=== PATIENT | female | born 1960 | race Caucasian/White ===

== ENCOUNTER 2020-04-20 09:08 | Outpatient (REF) | payer OTHER, SELFPAY ==
--- NOTE | ~2020-04-20 | MM_ITS ---
EXAMINATION: MM SCREENING DIGITAL BREAST TOMOSYNTHESIS, BILATERAL CLINICAL INFORMATION: Screening. Asymptomatic. The lifetime risk of breast cancer based on the Tyrer-Cuzick Model is 8%. COMPARISON: Mammography: 04/12/2019, 02/12/2018 TECHNIQUE: Digital breast tomosynthesis is performed in both the craniocaudal and mediolateral oblique views along with computer-aided detection (CAD). Synthesized 2D images are generated from the tomosynthesis. FINDINGS: There are scattered areas of fibroglandular density (ACR BI-RADS breast composition Category b). There are no significant masses, abnormal calcifications, or other abnormalities. There is a stable small nodule again seen posterior inferior medial left breast. The axilla and skin contours are unremarkable. No significant changes. MM/MM tomosynthesis screening BI IMPRESSION: No mammographic evidence of malignancy. ASSESSMENT: BI-RADS 2: Benign RECOMMENDATION: Routine annual mammography screening. This patient's information was entered into a reminder system with a target due date for their next mammogram.
== END 2020-04-20 09:09 | disposition home or self-care (01) ==
LOC: HO.MAMMO 09:08
PROVIDERS: PCP Internal Medicine; Visit Provider Internal Medicine
DX: Z12.31 Encounter for screening mammogram for malignant neoplasm of breast (principal)
CPT/HCPCS: 77063; 77067

== ENCOUNTER 2020-05-19 11:07 | Outpatient (REF) | payer OTHER, SELFPAY ==
[2020-05-19 13:49] LABS: MANUAL DIFF FLAG NO
[2020-05-19 13:55] LABS: Basophils Absolute Auto 0.1 X10*3/uL (0.0-0.2); Basophils Percent Auto 0.5 % (0-2); Eosinophils Absolute Auto 0.3 X10*3/uL (0.0-0.4); Eosinophils Percent Auto 2.7 % (0-4); Hematocrit 49.7 % (37-47); Hemoglobin 16.1 g/dl (12.0-16.0); Imm Gran Abs Auto 0.03 X10*3/uL (0.00-0.03); Imm Gran Pct Auto 0.3 % (0.0-0.4); Lymphocytes Percent Auto 32.9 % (20-40); Mean Corpuscular HGB Conc 32.4 g/dl (31.0-35.0); Mean Corpuscular Hemoglobin 31.5 pg (27.0-33.0); Mean Corpuscular Volume 97.3 fL (80-98); Mean Platelet Volume 10.4 fL (9.4-12.3); Monocytes Absolute Auto 0.7 X10*3/uL (0.1-1.2); Monocytes Percent Auto 7.5 % (2-11); Neutrophils Absolute Auto 5.1 X10*3/uL (2.0-8.3); Neutrophils Percent Auto 56.1 % (45-73); Platelet Count 383 X10*3/uL (160-400); Red Blood Count 5.11 X10*6/uL (4.20-5.50); White Blood Count 9.1 X10*3/uL (4.8-10.8)
[2020-05-19 14:36] LABS: Alanine Aminotransferase 39 U/L (0-31); Anion Gap 15 (12-20); Aspartate Amino Transferase 26 U/L (5-31); Blood Urea Nitrogen 14 mg/dL (9-16); Calcium 9.8 mg/dL (8.4-10.2); Carbon Dioxide 28 mmol/L (22-29); Chloride 100 mmol/L (96-108); Cholesterol 288 mg/dL; Estimated Glomerular Filt Rate > 60; Glucose Fasting 107 mg/dL (60-99); HDL Cholesterol 50 mg/dL; LDL Cholesterol Calculated 173 mg/dl; Potassium 5.1 mmol/L (3.3-5.1); Sodium 138 mmol/L (135-145); Triglycerides 327 mg/dL
[2020-05-19 14:58] LABS: Vitamin D 25-OH Total 35.3 ng/mL (>30)
[2020-05-24 02:31] LABS: HPV mRNA E6/E7 rflx Not Detected (Not Detected)
== END 2020-05-19 11:08 | disposition home or self-care (01) ==
LOC: HO.HMGCLDS 11:07
PROVIDERS: PCP Internal Medicine; Visit Provider Internal Medicine
DX: Z00.01 Encounter for general adult medical examination with abnormal findings (principal); I10 Essential (primary) hypertension; E78.5 Hyperlipidemia, unspecified; F41.1 Generalized anxiety disorder; Z78.0 Asymptomatic menopausal state
CPT/HCPCS: 36415; 80048; 80061; 82306; 84443; 84450; 84460; 85025; 87624; 88142

== ENCOUNTER 2021-05-01 10:02 | Outpatient (REF) | payer OTHER, SELFPAY ==
--- NOTE | ~2021-05-01 | MM_ITS ---
EXAMINATION: MM SCREENING DIGITAL BREAST TOMOSYNTHESIS, BILATERAL CLINICAL INFORMATION: Screening. Asymptomatic. History left ADH 2007. The lifetime risk of breast cancer based on the Tyrer-Cuzick Model is 29%. COMPARISON: Mammography: 04/20/2020, 04/12/2019, 02/12/2018, 11/01/2015 TECHNIQUE: Digital breast tomosynthesis is performed in both the craniocaudal and mediolateral oblique views along with computer-aided detection (CAD). Synthesized 2D images are generated from the tomosynthesis. FINDINGS: There are scattered areas of fibroglandular density (ACR BI-RADS breast composition Category b). The is scattered small benign nodularity. No architectural abnormality or abnormal calcifications. The axilla and skin contours are unremarkable. Tiny smooth nodule posteromedial left breast on CC view is decreased in size. Right breast has a smooth oval nodule mid 4:00 position 8 cm from nipple and measuring around 8 x 4 mm, increased in size from prior exams. Patient will be recalled for additional imaging to further characterize. MM/MM tomosynthesis screening BI IMPRESSION: 1. Right: Smooth oval nodule mid 4:00 position increased in size. 2. Left: No mammographic evidence of malignancy. ASSESSMENT: BI-RADS 0: Incomplete - Need Additional Imaging Evaluation RECOMMENDATION: 1. Targeted ultrasound right breast. 2. Radiology department staff will contact the patient for additional imaging. 3. The lifetime risk of breast cancer based on the Tyrer-Cuzick Model is 29%. Additional annual adjunct screening with breast MRI may be of benefit in women with a risk score of 20% or greater. This patient's information was entered into a reminder system with a target due date for their next mammogram.
== END 2021-05-01 10:03 | disposition home or self-care (01) ==
LOC: HO.MAMMO 10:02
PROVIDERS: PCP Internal Medicine; Visit Provider Internal Medicine
DX: Z12.31 Encounter for screening mammogram for malignant neoplasm of breast (principal)
CPT/HCPCS: 77063; 77067

== ENCOUNTER 2021-05-11 10:48 | Outpatient (REF) | payer OTHER, SELFPAY ==
--- NOTE | ~2021-05-11 | US_ITS ---
EXAMINATION: US DIAGNOSTIC BREAST, RIGHT CLINICAL INFORMATION: Right breast nodule. COMPARISON: Mammography of 05/01/2021 and studies dating back to 06/24/2011. TECHNIQUE: Ultrasound of the breast is performed with real-time mahmood scale imaging and color Doppler. FINDINGS: At approximately the 4 o'clock position, 7 cm from the nipple, there is a hypoechoic 6 x 3 x 4 mm lesion which is taller than wide and with some irregular margins. This may represent 2 adjacent complex cysts. However, a solid mass is not excluded. No significant distal sound shadowing is seen and there appears to be some mild distal sound enhancement. Ultrasound-guided core biopsy is recommended. Breast center patient navigator called the above recommendation to referring provider's office. Results are discussed with the patient at time of visit. US/US breast RT limited IMPRESSION: Indeterminate right breast nodule 4 o'clock position, 7 cm from the nipple, for which ultrasound-guided core biopsy is recommended. ASSESSMENT: BI-RADS 4: Suspicious. RECOMMENDATION: Ultrasound-guided core biopsy.
== END 2021-05-11 10:49 | disposition home or self-care (01) ==
LOC: HO.MAMMO 10:48
PROVIDERS: PCP Internal Medicine; Visit Provider Internal Medicine
DX: N63.14 Unspecified lump in the right breast, lower inner quadrant (principal)
CPT/HCPCS: 76642

== ENCOUNTER 2021-05-22 11:07 | Outpatient (REF) | payer OTHER, SELFPAY ==
[2021-05-22 13:56] LABS: MANUAL DIFF FLAG NO
[2021-05-22 14:00] LABS: Basophils Absolute Auto 0.1 X10*3/uL (0.0-0.2); Basophils Percent Auto 0.9 % (0-2); Eosinophils Absolute Auto 0.3 X10*3/uL (0.0-0.4); Eosinophils Percent Auto 3.4 % (0-4); Hematocrit 44.8 % (37.0-47.0); Hemoglobin 14.8 g/dl (12.0-16.0); Imm Gran Abs Auto 0.04 X10*3/uL (0.00-0.03); Imm Gran Pct Auto 0.4 % (0.0-0.4); Lymphocytes Absolute Auto 3.5 X10*3/uL (1.2-4.9); Lymphocytes Percent Auto 39.1 % (20-40); Mean Corpuscular Hemoglobin 31.6 pg (27.0-33.0); Mean Corpuscular Volume 95.7 fL (80.0-98.0); Mean Platelet Volume 10.4 fL (9.4-12.3); Monocytes Absolute Auto 0.7 X10*3/uL (0.1-1.2); Monocytes Percent Auto 7.4 % (2-11); Neutrophils Absolute Auto 4.4 x10*3/uL (2.0-8.3); Neutrophils Percent Auto 48.8 % (45-73); Platelet Count 354 X10*3/uL (160-400); Red Blood Count 4.68 X10*6/uL (4.20-5.50); Red Cell Distribution Width 12.8 % (11.0-16.0); White Blood Count 8.9 X10*3/uL (4.8-10.8)
[2021-05-22 14:07] LABS: Estimated Average Glucose 108 mg/dL; Hemoglobin A1c % 5.4 %
[2021-05-22 14:13] LABS: Alanine Aminotransferase 40 U/L (0-31); Anion Gap 13 (12-20); Aspartate Amino Transferase 23 U/L (5-31); Blood Urea Nitrogen 16 mg/dL (9-16); Carbon Dioxide 26 mmol/L (22-29); Chloride 105 mmol/L (96-108); Cholesterol 325 mg/dL; Estimated Glomerular Filt Rate > 60; Glucose Fasting 96 mg/dL (60-99); HDL Cholesterol 53 mg/dL; LDL Cholesterol Calculated 221 mg/dl; Sodium 139 mmol/L (135-145); Triglycerides 259 mg/dL
[2021-05-22 14:28] LABS: Vitamin D 25-OH Total 33.9 ng/mL (>30)
[2021-05-24 14:02] LABS: TS Negative Control Passed; TS Panel A 0; TS Panel B 1; TS Positive Control Passed; TSpotTB Negative (Negative)
== END 2021-05-22 11:08 | disposition home or self-care (01) ==
LOC: HO.HMGCLDS 11:07
PROVIDERS: Visit Provider Internal Medicine
DX: Z11.1 Encounter for screening for respiratory tuberculosis (principal); I10 Essential (primary) hypertension; D12.6 Benign neoplasm of colon, unspecified; Z78.0 Asymptomatic menopausal state
CPT/HCPCS: 36415; 80048; 80061; 82306; 83036; 84450; 84460; 85025; 86481

== ENCOUNTER 2021-05-23 09:11 | Outpatient (REF) | payer OTHER, SELFPAY ==
--- NOTE | ~2021-05-23 | MM_ITS ---
EXAMINATION: ULTRASOUND GUIDED CORE BIOPSY BREAST, RIGHT POST PROCEDURE DIGITAL MAMMOGRAM, RIGHT CLINICAL INFORMATION: Nodule 4:00 right breast for tissue sampling. Prior history contralateral left ADH, 2007. COMPARISON: Mammography 05/01/2021, targeted right breast ultrasound 05/11/2021. FINDINGS: Proper informed consent is obtained from the patient after discussion of the procedure, potential risks and complications, and alternatives. Patient was given an opportunity for questions. The patient appeared to understand. The patient consented to the procedure and signed the consent form. GUIDANCE: Ultrasound-guided; aseptic technique. LESION: Anechoic nodule mid medial right breast, suspect cyst. APPROACH: Oblique caudal cranial. ANESTHESIA: 15 mL carbonated 1% lidocaine. DERMATOTOMY: Single skin batsheva dermatotomy performed. NEEDLE: 14-gauge Achieve core biopsy device with 13.5-gauge co-axial guide needle. CORES: 4. CLIP: HydroMARK; shape: butterfly. The lesion collapsed on initial core sampling. Clip placed in the vicinity of biopsy site. POST PROCEDURE UNILATERAL DIGITAL MAMMOGRAM: The post biopsy mammogram is performed in separate room using separate digital mammography equipment from the biopsy procedure. CC and ML x2 views are obtained. There are scattered areas of fibroglandular density (breast composition category: b). The clip marker is in position. No gross hematoma. The patient tolerated the procedure well. No immediate complications. Home instructions reviewed with the patient. Final pathology results are pending. MM/MM diagnostic mammo unilat RT IMPRESSION: 1. Status post ultrasound-guided core biopsy right breast. 2. Clip placed: HydroMARK; shape: butterfly. 3. Pathology pending. An addendum report will be issued.
[2021-05-23] MEDS: Sodium Bicarbonate 8.4% 50 MEQ/50 ML VIAL SUBCUT (11:14)
[2021-05-23] MEDS: Lidocaine HCl 1 % 20 ML VIAL 15 ML SUBCUT (11:16)
== END 2021-05-23 09:12 | disposition home or self-care (01) ==
LOC: HO.MAMMO 09:11
PROVIDERS: Visit Provider Surgery
DX: N63.14 Unspecified lump in the right breast, lower inner quadrant (principal)
CPT/HCPCS: 19083; 77062; 77065; 88305

== ENCOUNTER → 2021-05-28 09:57 | Outpatient (BNVA) | payer OTHER, SELFPAY | PROVIDERS: PCP Internal Medicine; Referring Provider Internal Medicine; Visit Provider Surgery | DX: N63.10 Unspecified lump in the right breast, unspecified quadrant (principal) ==

== ENCOUNTER 2021-10-24 08:07 | Outpatient (REF) | payer OTHER, SELFPAY ==
[2021-10-24 12:03] LABS: Cholesterol 275 mg/dL; HDL Cholesterol 42 mg/dL; LDL Cholesterol Calculated 170 mg/dl; Triglycerides 317 mg/dL
== END 2021-10-24 08:08 | disposition home or self-care (01) ==
LOC: HO.HMGCLDS 08:07
PROVIDERS: PCP Internal Medicine; Visit Provider Internal Medicine
DX: E78.5 Hyperlipidemia, unspecified (principal)
CPT/HCPCS: 36415; 80061

== ENCOUNTER 2022-04-29 09:29 | Day surgery (SDC) | payer OTHER, SELFPAY ==
[2022-04-23 19:38] VITALS: BMI 33.6
--- NOTE | 2022-04-26 12:22 | HO.ANESPROP2 ---
Documented by User: Charline Gómez NP 04/26/22 12:23 HPI - Anesthesia Eval Consult details Narrative: 61yo F for Colonoscopy PMFSH Active Problems Active Problems: All Active Problems (Updated 11/03/21 @ 03:06 by Adrianne Fletcher MD) Cigarette smoker motivated to quit (Acute) Mixed dyslipidemia (Acute) Acute conjunctivitis (Acute) Acute bronchitis (Acute) Breast mass, right (Acute) Tubular adenoma of colon (Acute) Essential hypertension (Acute) Generalized anxiety disorder (Acute) Past Medical History Medical History (Updated 04/12/22 @ 16:49 by Adrianne Fletcher MD) Breast mass, right Cigarette smoker motivated to quit Essential hypertension Generalized anxiety disorder History of lipoma Mixed dyslipidemia Tubular adenoma of colon Family History Family History Father History of hypertension Hx of hyperlipidemia History of cardiac arrhythmia Alzheimer disease Mother Diabetes Surgical History Surgical History History of colonoscopy with polypectomy Hx laparoscopic cholecystectomy Hx of breast biopsy Hx of dilation and curettage Social History Social History Housing: House Are you a primary progressive care manager to a significant other at home: No Do you presently have visiting nurse or other home services: No Alcohol intake: current Alcohol intake frequency: holidays/special occasions only Patient Tobacco Use Status: Current everyday Tobacco user Tobacco use type: Cigarette Cigarettes Per Day: 10 Years Smoked: 20 Smoked in Last 30 Days: Yes e-Cigarette/Vaping Use: Never Used Patient Interested in Nicotine Replacement: No Patient Given Instructions on How to Stop Smoking: Yes Date Education Initiated: 04/23/22 Use of substances other than those prescribed or required for medical reasons: No Have you been hit, kicked, punched, or otherwise hurt by someone within the past year? If so, by whom?: No Moravian Healthcare Practices: zoroastrian Are you DNR?: No Advance Directives: No Advance Directives Information Provided: Yes Recently lost weight without trying: No How much weight loss: Not applicable Eating poorly because of decreased appetite: No Nutrition screen score: 0 Nutrition Risks: No Nutritional Risk Patient : No : No Poor oral hygiene: No service: No Current occupational status: employed Cognitive needs: No Hearing needs: No Vision needs: Yes Meds Allergies Allergy/AdvReac Type Severity Reaction Status Date / Time No Known Allergies Allergy Verified 04/12/22 14:38 [No Known Allergies*] Exam Exam Date and Time: April 26, 2022 1222 Height,Weight and Vital Signs: Height 5 ft 3 in Weight 86.183 kg Assessment and Plan Assessment Anesthesia Assessment: Chart Reviewed Documented by User: Angélica Gutierrez MD 04/29/22 10:11 [facility] Past Medical History Medical History (Updated 04/12/22 @ 16:49 by Adrianne Fletcher MD) Breast mass, right Cigarette smoker motivated to quit Essential hypertension Generalized anxiety disorder History of lipoma Mixed dyslipidemia Tubular adenoma of colon Family History Family History Father History of hypertension Hx of hyperlipidemia History of cardiac arrhythmia Alzheimer disease Mother Diabetes Family history of problems with anesthesia: No Surgical History Surgical History History of colonoscopy with polypectomy Hx laparoscopic cholecystectomy Hx of breast biopsy Hx of dilation and curettage History of Problems with Anesthesia: No Social History Social History Housing: House Are you a primary progressive care manager to a significant other at home: No Do you presently have visiting nurse or other home services: No Alcohol intake: current Alcohol intake frequency: holidays/special occasions only Patient Tobacco Use Status: Current everyday Tobacco user Tobacco use type: Cigarette Cigarettes Per Day: 10 Years Smoked: 20 Smoked in Last 30 Days: Yes e-Cigarette/Vaping Use: Never Used Patient Interested in Nicotine Replacement: No Patient Given Instructions on How to Stop Smoking: Yes Date Education Initiated: 04/23/22 Use of substances other than those prescribed or required for medical reasons: No Have you been hit, kicked, punched, or otherwise hurt by someone within the past year? If so, by whom?: No Mor[employer] Healthcare Practices: zoroastrian Are you DNR?: No Advance Directives: No Advance Directives Information Provided: Yes Recently lost weight without trying: No How much weight loss: Not applicable Eating poorly because of decreased appetite: No Nutrition screen score: 0 Nutrition Risks: No Nutritional Risk Patient : No : No Poor oral hygiene: No service: No Current occupational status: employed Cognitive needs: No Hearing needs: No Vision needs: Yes Meds Allergies Allergy/AdvReac Type Severity Reaction Status Date / Time No Known Allergies Allergy Verified 04/12/22 14:38 [No Known Allergies*] Exam Airway Mallampati Class: II TM Dist: >3cm Neck ROM: Full Heart: rrr Lungs: cta Assessment and Plan Assessment Anesthesia Assessment: Anesthesia Plan Discussed Final Anesthetic Review Family History of Problems with Anesthesia: No History of Problems with Anesthesia: No NPO: Yes ASA Class: II Final Preanesthetic Review: No Changes in Pt Med Stat, Meds/Allgs Chart Reviewed and Consent Obtained/Reviewed Patient Risk: Intermediate Procedure Risk: Intermediate Anesthetic Plan Anesthetic Plan: MAC: Disposition: Standard PACU
[2022-04-29 10:03] VITALS: BP 151/93; PULSE 81; RESP 16; TEMP 36.9; O2SAT 98
--- NOTE | 2022-04-29 10:13 | MHC.SHP ---
Pre-Procedural Eval Section A Date of Service: 04/29/22 The patient is an INPATIENT: No The History & Physical has been completed within 30 days and I have reviewed it.: No Section B Chief Complaint: screening Details of Present Illness: Colon cancer screening Relevant Family History (Specify if Yes): No Relevant Social History: Tobacco Use Present Medications: see Short Stay Collaborative assessment Medical History: Significant History (Hypertension High cholesterol Anxiety Tubular adenoma Lipoma) History of Previous Operations: Relevant previous surgery/procedure and date(s) (History of colonoscopy with polypectomy Hx laparoscopic cholecystectomy Hx of breast biopsy Hx of dilation and curettage) Allergies: Allergies Allergy/AdvReac Type Severity Reaction Status Date / Time No Known Allergies Allergy Verified 04/12/22 14:38 [No Known Allergies*] Review of Systems Sugical H&P ROS: Negative: Constitution, Cardiovascular, Respiratory and Gastrointestinal Exam Surgical H&P Exam: Normal: Heart, Normal: Lungs, Normal: Extremities and Normal: Abdomen Plan Diagnosis/Plan: Unchanged I have reviewed the history and physical and performed a pertinent physical examination on my patient. No changes have occurred unless specified. Time Spent With Patient Time: Total time managing care of this patient today ____ minutes.
--- NOTE | 2022-04-29 10:19 | PM.OP ---
Brief Operative Note Date of Service: 04/29/22 Pre-op diagnosis: Colon cancer screening, history of colon polyps Post-op diagnosis: other (COLON POLYPS, DIVERTICULOSIS, MELANOSIS COLI, HEMORRHOIDS) Procedure: COLONOSCOPY TO CECUM WITH BIOPSIES AND SNARE POLYPECTOMY Surgeon: Carolann Calvo MD Anesthesia: MAC Was an Padded Box Sewer used for this Procedure?: Yes Padded Box Sewer: Vamshi Meeks Estimated blood loss (mL): 1 Pathology: other ( A) Polyps Cecum B) Polyp Ascending Colon C) Polyp Transverse Colon D) Polyp Rectum) Condition: stable Disposition: PACU
--- NOTE | 2022-04-29 10:20 | W.PM.OPN ---
Operative Note Operative Note Date of Service: 04/29/22 Narrative: COLONOSCOPY TILL CECUM WITH BIOPSIES AND SNARE POLYPECTOMY Indication:? Colon cancer screening, follow-up of colon polyps Endoscopist:? Carolann Calvo MD Anesthesia Provider:?Dr Mujica Anesthesia type:?MAC Consent: Indications for the procedure and potential complications of bleeding, perforation, reaction to medications and missed diagnosis were discussed with the patient and informed consent was obtained. Instrument: Olympus PCF H 190 L variable stiffness pediatric colonoscope Monitoring: Vital signs and clinical assessment, intermittent blood pressure monitoring, continuous EKG monitoring, Pulse oximetry and Carbon Dioxide monitoring were done throughout the procedure. Please see anesthesia flowsheet. Colon withdrawl time was 21 minutes. Procedure: The patient was placed in the left lateral decubitis position and pre-procedure medications were administered. After a digital rectal examination of the ano-rectum, the video colonoscope was inserted into the rectum and advanced through the colon to the cecum. The colonoscope was slowly withdrawn in a retrograde panoramic fashion and the colon mucosa was carefully examined including a retroflexed view of the rectum. Findings and interventions are described below. Procedure Difficulty: Colon was long and there was some loop formation. LLQ pressure was applied to intubate the cecum Findings: Terminal Ileum: Not evaluated Cecum: Two 5-8 mm sessile polyps - removed with a cold snare Ascending Colon: Mild Melanosis Coli throughout the colon. A 3-4 mm sessile polyp in the proximal AC - removed with a cold bx Transverse Colon: Mild Melanosis Coli throughout the colon. A 4-5 mm sessile polyp removed with a cold bx Descending Colon: Mild Melanosis Coli throughout the colon. Moderate diverticulosis. Sigmoid Colon: Mild Melanosis Coli throughout the colon. Moderate diverticulosis Rectum: A 7 -8 mm diminutive appearing polyp - removed with a cold biopsy. Ano-rectum: Moderate internal hemorrhoids and perianal skin tags Colon preparation: Good after some irrigation Impression and Post Procedure Diagnosis: Colonoscopy Findings: Five small polyps removed Mild Melanosis Coli throughout the colon. Moderate diverticulosis seen in the left colon Moderate hemorrhoids on retroflexed exam. Plan: Await pathology results Patient has an appointment on 05/07/22 in the [facility] with Katherine Devries NP. Repeat Colonoscopy interval based on path results - in 3-5 years if polyps are adenomatous and due to a hx of adenomatous colon polyps. (adult colonoscope for future colonoscopies) Above findings were reviewed with the patient and colon polyps and diverticulosis handouts were given in the discharge area
[2022-04-29 10:57] VITALS: BP 109/67; PULSE 79; RESP 16; TEMP 36.4; O2SAT 97
[2022-04-29 11:12] VITALS: BP 121/78; PULSE 71; RESP 16; O2SAT 99
[2022-04-29 11:25] VITALS: BP 131/77; PULSE 69; RESP 16; TEMP 36.3; O2SAT 99
== END 2022-04-29 12:08 | disposition home or self-care (01) ==
PROVIDERS: PCP Internal Medicine; Visit Provider Internal Medicine Gastroenterology
PROC: 0DJD8ZZ Inspection of Lower Intestinal Tract, Via Natural or Artificial Opening Endoscopic (ICD-10-PCS; CPT 45378; principal; 2022-04-29 11:20)
DX: Z12.11 Encounter for screening for malignant neoplasm of colon (principal); Z86.010 Personal history of colon polyps; D12.0 Benign neoplasm of cecum; D12.3 Benign neoplasm of transverse colon; K63.5 Polyp of colon; K62.1 Rectal polyp; K57.30 Diverticulosis of large intestine without perforation or abscess without bleeding; K63.89 Other specified diseases of intestine; K64.8 Other hemorrhoids; K64.4 Residual hemorrhoidal skin tags; I10 Essential (primary) hypertension; E78.00 Pure hypercholesterolemia, unspecified; F41.1 Generalized anxiety disorder; Z90.49 Acquired absence of other specified parts of digestive tract; F17.210 Nicotine dependence, cigarettes, uncomplicated
CPT/HCPCS: 45385; 45380; 88305

== ENCOUNTER 2022-07-25 09:16 | Outpatient (REF) | payer OTHER, SELFPAY ==
--- NOTE | ~2022-07-25 | MM_ITS ---
EXAMINATION: MM SCREENING DIGITAL BREAST TOMOSYNTHESIS, BILATERAL CLINICAL INFORMATION: Screening. Asymptomatic. History left ADH, 2007. Benign right ultrasound-guided core biopsy 05/23/2021 (small fragments of benign breast tissue with features of apocrine cyst. No atypia or malignancy). The lifetime risk of breast cancer based on the Tyrer-Cuzick Model is 28%. COMPARISON: Mammography: 05/23/2021, 05/01/2021, 04/20/2020, 04/12/2019 TECHNIQUE: Digital breast tomosynthesis is performed in both the craniocaudal and mediolateral oblique views along with computer-aided detection (CAD). Synthesized 2D images are generated from the tomosynthesis. FINDINGS: There are scattered areas of fibroglandular density (ACR BI-RADS breast composition Category b). There are no significant masses, abnormal calcifications, or other abnormalities. Parenchymal pattern is similar to prior studies. No architectural abnormality. There is a biopsy clip marker mid 3:30 right breast. No recurrent or developing density. The axilla and skin contours are unremarkable. No significant changes. MM/MM tomosynthesis screening BI IMPRESSION: No mammographic evidence of malignancy. ASSESSMENT: BI-RADS 2: Benign RECOMMENDATION: -Routine annual mammography screening. -The lifetime risk of breast cancer based on the Tyrer-Cuzick Model is 28%. Additional annual adjunct screening with breast MRI may be of benefit in women with a risk score of 20% or greater. This patient's information was entered into a reminder system with a target due date for their next mammogram.
== END 2022-07-25 09:17 | disposition home or self-care (01) ==
LOC: HO.MAMMO 09:16
PROVIDERS: PCP Internal Medicine; Visit Provider Internal Medicine
DX: Z12.31 Encounter for screening mammogram for malignant neoplasm of breast (principal)
CPT/HCPCS: 77063; 77067

== ENCOUNTER 2022-09-10 12:12 | Outpatient (AMB) | payer OTHER, SELFPAY ==
--- NOTE | 2022-09-10 13:30 | MHC.PC.OV ---
Vital Signs 09/10/22 13:31 Height 5 ft 3 in Weight 186 lb BMI 32.9 BP 128/94 H Blood Pressure Location Lt brachial Position Sitting Pulse 82 Pulse Source Pulse Oximeter Pulse Oximetry (%) 98 Oxygen Delivery Method Room Air Intake Visit Reasons: PE Intake Note: Pt is here today for her PE Allergies No Known Allergies [No Known Allergies*] Allergy (Verified 09/10/22 13:45) Medication List - Last Reconciled 09/10/22 by Adrianne Fletcher MD No Known Home Meds Tobacco use date assessed: 09/10/22 Dental Screening Dental Screen Date: 09/10/22 Did you have a dental visit in the last 12 months?: No Was dental information given to patient?: Patient has dentist HPI PE HPI Details 61-year-old lady here today for physical exam. She is up-to-date with her screening mammogram, had a cervical cancer screening done in 2020 with benign findings, and is up-to-date with her screening colonoscopy, which showed presence of 2 tubular adenomas and 1 hyperplastic polyp, due for repeat colonoscopy in [address] Calvo. She gets yearly flu vaccine up-to-date with her Tdap, and has had her COVID vaccine including booster. Has mixed dyslipidemia, currently controlled with diet. Continues to smoke cigarettes, not ready to quit at present time [facility] Medical History (Updated 09/10/22 @ 14:03 by Adrianne Fletcher MD) Breast mass, right Essential hypertension Generalized anxiety disorder History of lipoma Mixed dyslipidemia Not ready to quit smoking Obesity (BMI 30.0-34.9) Tubular adenoma of colon Surgical History History of colonoscopy with polypectomy Hx laparoscopic cholecystectomy Hx of breast biopsy Hx of dilation and curettage Family History Father History of hypertension Hx of hyperlipidemia History of cardiac arrhythmia Alzheimer disease Mother Diabetes Social History Housing: House Are you a primary manager of care to a significant other at home: No Do you presently have visiting nurse or other home services: No Alcohol intake: current Alcohol intake frequency: holidays/special occasions only Patient Tobacco Use Status: Current everyday Tobacco user Tobacco use type: Cigarette Cigarettes Per Day: 10 Years Smoked: 20 e-Cigarette/Vaping Use: Never Used service: No Current occupational status: employed Cognitive needs: No Hearing needs: No Vision needs: Yes Female Reproductive History Menstrual Age of Menarche: 89 Questionnaire PHQ-9 Over the last 2 weeks, how often have you been bothered by any of the following problems? 1. Little interest or pleasure in doing things: not at all 2. Feeling down, depressed, or hopeless: not at all 3. Trouble falling or staying asleep, or sleeping too much: not at all 4. Feeling tired or having little energy: more than half the days 5. Poor appetite or overeating: not at all 6. Feeling bad about yourself - or that you are a failure or have let yourself or your family down: not at all 7. Trouble concentrating on things, such as reading the newspaper or watching television: not at all 8. Moving or speaking so slowly that other people could have noticed. Or the opposite - being so fidgety or restless that you have been moving around a lot more than usual: not at all 9. Thoughts that you would be better off or of hurting yourself in some way: not at all Total score: 2 Depression Screening Interpretation: Negative 76408 - PHQ-9 Billing: Yes Source: Developed by Drs. Vamshi Lara, Anne Farrell, Javier Hamm and colleagues, with an educational clemente from [employer]. Thrive Questionnaire Date Thrive assessed: 09/10/22 I am a: Patient What is your living situation today?: I have a steady place to live Within the past 12 months, did the food you bought not last and you didn't have the money to get more?: Never true Within the past 12 months, did you worry whether your food would run out before you got money to buy more?: Never true Do you have trouble paying for medicines?: No Do you have trouble getting transportation to medical appointments?: No Do you have trouble paying your heating and electricity bill?: No Do you have trouble taking care of your child, family member or friend?: No Do you have trouble with day-to-day activities such as bathing, preparing meals, shopping, managing finances, etc.?: No Are you currently unemployed and looking for a job?: No Are you interested in more education?: No AUDIT C Alcohol Use Questionnaire (AUDIT-C) 1. How often do you have a drink containing alcohol?: 2-3 times a week 2. How many drinks containing alcohol do you have on a typical day when you are drinking?: 1 or 2 3. How often do you have six or more drinks on one occasion?: Never Total Score: 3 TRISHA-7 AMB Questionnaire TRISHA-7 Date TRISHA - 7 assessed: 09/10/22 Feeling nervous, anxious, or on edge: 2 = More than half the days Not being able to stop or control worryin = Several days Worrying too much about different things: 1 = Several days Trouble relaxin = Not at all Being so restless that it is hard to sit still: 0 = Not at all Becoming easily annoyed or irritable: 0 = Not at all Feeling afraid as if something awful might happen: 0 = Not at all Total TRISHA-7 score (0-4 normal; 5-9 mild; 10-14 moderate; 15-21 severe): 4 Source: Developed by Drs. Vasmhi Lara, Anne Farrell, Javier Hamm and colleagues, with an educational clemente from [employer]. TRISHA-7 Assessment Billing TRISHA-7 Assessment Tool: TRISHA-7 Assessment 25049 Review of Systems Const Denies body aches, Denies fatigue, Denies headache(s) and Denies weakness Eyes Details: Goes to [facility] Denies change in vision ENT Denies dizziness, Denies headache(s), Denies nasal congestion, Denies nasal discharge and Denies sore throat Card Denies chest pain, Denies lightheadedness, Denies palpitations and Denies dyspnea Resp Denies chest congestion, Denies cough, Denies dyspnea and Denies wheezing GI Denies abdominal pain, Denies change in bowel habits and Denies heartburn Reports no additional complaints Musc Reports no additional complaints Skin/Breast Denies lesions and Denies rash Neuro Denies dizziness, Denies headache(s) and Denies weakness Psych Reports no additional complaints Endo Denies fatigue, Denies polydipsia, Denies polyuria and Denies palpitations James/Lymph Reports no additional complaints Aller/Immun Denies seasonal rhinorrhea and Denies wheezing Physical exam (Primary Care) Vital Signs: Last Vital Signs Pulse 82 09/10/22 13:31 BP 128/94 H 09/10/22 13:31 Pulse Ox 98 09/10/22 13:31 Oxygen Delivery Method Room Air 09/10/22 13:31 BMI result Body Mass Index 32.9 BMI Assessment/Plan discussion: High BMI High, discussed plan: lifestyle, weight reduction, dietary and physical activity Tobacco/Smoking Status: Tobacco use Status Tobacco use date assessed 09/10/22 09/10/22 13:34 Patient Tobacco Use Status Current everyday Tobacco 09/10/22 13:34 Tobacco use type Cigarette 09/10/22 13:34 e-Cigarette/Vaping Use Never Used 09/10/22 13:34 Are you ready to quit: No PHQ-9: PHQ-9 Score PHQ-9: Total score 2 09/10/22 14:06 Depression Screening Interpretation: Negative Thrive Assessment: Date of Thrive Assessment Date Thrive assessed 09/10/22 09/10/22 14:06 Const General: comfortable and no acute distress Nutritional Appearance: obese Orientation/consciousness: patient oriented x3 HENMT Head: Yes normocephalic and Yes atraumatic Ears: TM's normal bilaterally and EAC's normal General nose exam: Normal external nose present and No nasal discharge present Face and sinus: Yes face symmetric Mouth: Normal oral and palatal mucosa present and oropharynx normal Eyes General: appearance normal, both eyes and all related structures Neck Neck: Yes full ROM, Yes no lymphadenopathy and Yes supple Thyroid: Thyroid normal Chest Breast/axilla palpation: normal palpation of the breasts Resp Auscultation: clear to auscultation bilaterally Cardio Rate: regular rate Rhythm: regular rhythm Heart sounds: S1 normal heart sound present and S2 normal heart sound present GI Palpation (GI): Soft to palpation, nontender, no guarding and no masses Auscultation: normal bowel sounds Back/Spine/Pelvis Back: No back tenderness Skin General skin exam: no rashes or lesions noted Neuro General: patient oriented x3, gait normal, tone normal, moves all extremities, no focal motor deficits and CN's II-XI intact bilaterally Extrem General: Yes full ROM, Yes no joint enlargement, Yes no pedal edema, Yes no calf tenderness and Yes normal gait Psych Appearance: grossly normal and well kempt Mental Status: mental status grossly normal Speech and movement: Normal speech and movement present Affect: normal affect Attitude: cooperative Assessment and Plan Assessment & Plan (1) Annual visit for general adult medical examination with abnormal findings: Code(s): Z00.01 - Encounter for general adult medical examination with abnormal findings Plan: Will check appropriate labs. Recommended dental visit every 6 months and regular eye exams, at least every 2 years. Take adequate calcium in diet and vitamin-D 3 at 2000 IU per cap once a day, in addition to weight-bearing exercises to help maintain good muscle tone and weight control. Instructed to do self-breast exam, up-to-date with her yearly mammogram, and cervical cancer screening.. Up-to-date with all her vaccinations but has not yet had her shingles vaccine. Up-to-date with screening colonoscopy (2) Mixed dyslipidemia: Code(s): E78.2 - Mixed hyperlipidemia Plan: Reviewed recent fasting lipid profile with patient with elevated triglycerides and LDL cholesterol. Repeat another fasting lipid panel. Encouraged to continue with a low-cholesterol diet , in addition to adherence to getting regular exercise, at least 30 minutes 3 to 4 times a week. Advised patient to make healthy food choices, eat more fruits, vegetables, whole grains, wild caught fish and low-fat dairy. Limit amount of meat and fried or fatty food products, as well as processed foods and fast foods. (3) Essential hypertension: Code(s): I10 - Essential (primary) hypertension Plan: Blood pressure at goal of less than 130/80. Continue with current medication. Reinforced importance of following a low sodium diet, getting regular exercise, and lowering stress levels. (4) Not ready to quit smoking: Code(s): Z72.0 - Tobacco use Plan: Patient strongly advised to stop smoking, as smoking damages blood vessels, degenerative of joints and spine, damage to lungs and heart., predisposes to developing certain cancers like lung, breast, bladder, colon. Recommended to try decreasing cigarette use by 1-2 cigarettes a day. Advised to monitor what triggers are for smoking so that this can be discussed on the next office visit. We can discuss different options to quit smoking when ready. (5) Obesity (BMI 30.0-34.9): Code(s): E66.9 - Obesity, unspecified Plan: Your BMI is above the ideal range. I deal BMI is between 18.5- 24. Recommended focusing on improving health instead of dieting. Mediterranean diet is a healthy diet that helps, limit food high in fat, sugar, and calories. Eat slowly, pay attention to portion sizes, plan your meals ahead of time, start regular physical activity, at least 150 minutes of moderate intensity exercise, or 90 minutes per week of vigorous exercise. Keeping a food diary, tracking what you eat and your physical activity can help assess what improvements you can make. Orders: Orders Alanine Aminotransferase 09/10/22 E78.2 - Mixed hyperlipidemia, I10 - Essential (primary) hypertension Aspartate Amino Transferase 09/10/22 E78.2 - Mixed hyperlipidemia, I10 - Essential (primary) hypertension Basic Metabolic Panel Fasting 09/10/22 E78.2 - Mixed hyperlipidemia, I10 - Essential (primary) hypertension Lipid Panel 09/10/22 E78.2 - Mixed hyperlipidemia, I10 - Essential (primary) hypertension Vitamin D 25-OH Total 09/10/22 E78.2 - Mixed hyperlipidemia, I10 - Essential (primary) hypertension Coding Level of Care Code Est Pt Prev Care 40-64y(23552) Diagnoses Annual visit for general adult medical examination with abnormal findings Z00.01 Mixed dyslipidemia E78.2 Essential hypertension I10 Not ready to quit smoking Z72.0 Obesity (BMI 30.0-34.9) E66.9 Additional Codes TRISHA-7 Assessment Billing - TRISHA-7 Assessment Tool: TRISHA-7 Assessment 46138 ([id number])
[2022-09-10 13:31] VITALS: BP 128/94; PULSE 82; O2SAT 98; BMI 32.9
== END 2022-09-10 15:12 | disposition home or self-care (01) ==
PROVIDERS: Visit Provider Internal Medicine
DX: Z00.01 Encounter for general adult medical examination with abnormal findings (principal); E66.9 Obesity, unspecified; Z68.32 Body mass index [BMI] 32.0-32.9, adult; I10 Essential (primary) hypertension; E78.2 Mixed hyperlipidemia; Z72.0 Tobacco use
CPT/HCPCS: 99396

== ENCOUNTER 2022-09-13 08:03 | Outpatient (REF) | payer OTHER, SELFPAY ==
[2022-09-13 12:06] LABS: Alanine Aminotransferase 35 U/L (0-31); Anion Gap 19 (12-20); Aspartate Amino Transferase 28 U/L (5-31); Blood Urea Nitrogen 15 mg/dL (9-16); Calcium 10.3 mg/dL (8.4-10.2); Carbon Dioxide 17 mmol/L (22-29); Chloride 106 mmol/L (96-108); Cholesterol 256 mg/dL; Estimated Glomerular Filt Rate > 60; Glucose Fasting 100 mg/dL (60-99); HDL Cholesterol 43 mg/dL; LDL Cholesterol Calculated 160 mg/dl; Potassium 4.2 mmol/L (3.3-5.1); Sodium 138 mmol/L (135-145); Triglycerides 268 mg/dL
[2022-09-13 12:25] LABS: Vitamin D 25-OH Total 93.9 ng/mL (>30)
== END 2022-09-13 08:04 | disposition home or self-care (01) ==
LOC: HO.HMGCLDS 08:03
PROVIDERS: PCP Internal Medicine; Visit Provider Internal Medicine
DX: I10 Essential (primary) hypertension (principal); E78.2 Mixed hyperlipidemia
CPT/HCPCS: 36415; 80048; 80061; 82306; 84450; 84460

== ENCOUNTER 2023-07-29 09:12 | Outpatient (REF) | payer OTHER, SELFPAY ==
--- NOTE | ~2023-07-29 | MM_ITS ---
EXAMINATION: MM SCREENING DIGITAL BREAST TOMOSYNTHESIS, BILATERAL CLINICAL INFORMATION: Screening. Asymptomatic. COMPARISON: Mammography: This study is compared with prior exams dating back to 2019. TECHNIQUE: Digital breast tomosynthesis is performed in both the craniocaudal and mediolateral oblique views along with computer-aided detection (CAD). Synthesized 2D images are generated from the tomosynthesis. FINDINGS: There are scattered areas of fibroglandular density (ACR BI-RADS breast composition Category b). There are no significant masses, abnormal calcifications, or other abnormalities. There are minor postsurgical changes in the upper outer quadrant of the left breast. MM/MM tomosynthesis screening BI IMPRESSION: No mammographic evidence of malignancy. ASSESSMENT: BI-RADS BI-RADS 2 - Benign Findings RECOMMENDATION: Routine annual mammography screening. 1 year F/U This examination should not preclude the clinical evaluation of a suspicious palpable abnormality. This patient's information was entered into a reminder system with a target due date for their next mammogram.
== END 2023-07-29 09:13 | disposition home or self-care (01) ==
LOC: HO.MAMMO 09:12
PROVIDERS: PCP Internal Medicine; Visit Provider Internal Medicine
DX: Z12.31 Encounter for screening mammogram for malignant neoplasm of breast (principal)
CPT/HCPCS: 77063; 77067

== ENCOUNTER → 2023-07-29 09:30 | Outpatient (BNV) | payer OTHER, SELFPAY | PROVIDERS: PCP Internal Medicine; Visit Provider Radiology Diagnostic Radiology | DX: Z12.31 Encounter for screening mammogram for malignant neoplasm of breast (principal) | CPT/HCPCS: 77063; 77067 ==

== ENCOUNTER 2023-09-18 11:16 | Outpatient (AMB) | payer BC, SELFPAY ==
--- NOTE | 2023-09-18 11:30 | A.OFFPC_ITS ---
Vital Signs 09/18/23 11:38 Height 5 ft 3 in Weight 178 lb BMI 31.5 BP 130/88 Blood Pressure Location Rt brachial Position Sitting Pulse 80 Pulse Source Pulse Oximeter Pulse Oximetry (%) 97 Oxygen Delivery Method Room Air Intake Visit Reasons: PE Intake Note: Pt is here today for her PE and Papsmear L Allergies No Known Allergies [No Known Allergies*] Allergy (Verified 09/18/23 11:52) Medication List - Last Reconciled 09/18/23 by Adrianne Fletcher MD No Known Home Meds Tobacco use date assessed: 09/18/23 Dental Screening Dental Screen Date: 09/18/23 Did you have a dental visit in the last 12 months?: No Did you have a dental problem in the last 6 months where you did not have access to dental care?: No Was dental information given to patient?: Patient has dentist HPI PE HPI Details 62-year-old lady here today for physical exam. She has mixed dyslipidemia, has been trying to follow a low-cholesterol diet and trying to exercise . She is up-to-date with her mammogram, last done 07/29/2023 with normal findings, last cervical cancer screening was done 05/22/2020 with negative findings, due for a Pap smear today. She had a screening colonoscopy done 04/29/2022 with removal of 4 polyps 2 of them were tubular adenoma, repeat colon again in 2025. Smokes cigarettes at least half a pack a day, no desire to quit at present time She has been feeling well, with no complaints at present time [facility] Medical History Generalized anxiety disorder History of adenomatous polyp of colon Obesity (BMI 30.0-34.9) Not ready to quit smoking Mixed dyslipidemia Essential hypertension History of lipoma Surgical History History of colonoscopy with polypectomy Hx of dilation and curettage Hx of breast biopsy Hx laparoscopic cholecystectomy Family History Father History of hypertension Hx of hyperlipidemia History of cardiac arrhythmia Alzheimer disease Mother Diabetes Social History Housing: House Are you a primary medicare insurance specialist to a significant other at home: No Do you presently have visiting nurse or other home services: No Alcohol intake: current Alcohol intake frequency: holidays/special occasions only Patient Tobacco Use Status: Current everyday Tobacco user Tobacco use type: Cigarette Cigarettes Per Day: 10 Years Smoked: 20 e-Cigarette/Vaping Use: Never Used service: No Current occupational status: employed Cognitive needs: No Hearing needs: No Vision needs: Yes Female Reproductive History Menstrual Age of Menarche: 13 Menopause type: natural Date of last pap smear: 05/22/20 Questionnaire PHQ-9 Over the last 2 weeks, how often have you been bothered by any of the following problems? 1. Little interest or pleasure in doing things: not at all 2. Feeling down, depressed, or hopeless: not at all 3. Trouble falling or staying asleep, or sleeping too much: not at all 4. Feeling tired or having little energy: not at all 5. Poor appetite or overeating: not at all 6. Feeling bad about yourself - or that you are a failure or have let yourself or your family down: not at all 7. Trouble concentrating on things, such as reading the newspaper or watching television: not at all 8. Moving or speaking so slowly that other people could have noticed. Or the opposite - being so fidgety or restless that you have been moving around a lot more than usual: not at all 9. Thoughts that you would be better off or of hurting yourself in some way: not at all Total score: 0 Depression Screening Interpretation: Negative Depression Screening Done: Yes 97215 - PHQ-9 Billing: Yes Source: Developed by Drs. Vamshi Lara, Anne Farrell, Javier Hamm and colleagues, with an educational clemente from [employer]. Thrive Questionnaire Date Thrive assessed: 09/18/23 I am a: Patient What is your living situation today?: I have a steady place to live Within the past 12 months, did the food you bought not last and you didn't have the money to get more?: Never true Within the past 12 months, did you worry whether your food would run out before you got money to buy more?: Never true Do you have trouble paying for medicines?: No Do you have trouble getting transportation to medical appointments?: No Do you have trouble paying your heating and electricity bill?: No Do you have trouble taking care of your child, family member or friend?: No Do you have trouble with day-to-day activities such as bathing, preparing meals, shopping, managing finances, etc.?: No Are you currently unemployed and looking for a job?: No Are you interested in more education?: No Please select the resources that you would like help with: Housing/[facility] Currently or been in a relationship where the following occur: No concerns reported THRIVE Score: 0 AUDIT C Alcohol Use Questionnaire (AUDIT-C) 1. How often do you have a drink containing alcohol?: 2-3 times a week 2. How many drinks containing alcohol do you have on a typical day when you are drinking?: 1 or 2 3. How often do you have six or more drinks on one occasion?: Never Total Score: 3 TRISHA-7 AMB Questionnaire TRISHA-7 Date TRISHA - 7 assessed: 09/18/23 Feeling nervous, anxious, or on edge: 0 = Not at all Not being able to stop or control worryin = Not at all Worrying too much about different things: 0 = Not at all Trouble relaxin = Not at all Being so restless that it is hard to sit still: 0 = Not at all Becoming easily annoyed or irritable: 0 = Not at all Feeling afraid as if something awful might happen: 0 = Not at all Total TRISHA-7 score (0-4 normal; 5-9 mild; 10-14 moderate; 15-21 severe): 0 Source: Developed by Drs. Vamshi Lara, Anne Farrell, Javier Hamm and colleagues, with an educational clemente from [employer]. TRISHA-7 Assessment Billing TRISHA-7 Assessment Tool: TRISHA-7 Assessment 64567 Review of Systems Const Denies body aches, Denies fatigue, Denies headache(s) and Denies weakness Eyes Details: Goes to [facility] Denies change in vision ENT Denies dizziness, Denies headache(s), Denies nasal congestion, Denies nasal discharge and Denies sore throat Card Denies chest pain, Denies lightheadedness, Denies palpitations and Denies dyspnea Resp Denies chest congestion, Denies cough, Denies dyspnea and Denies wheezing GI Denies abdominal pain, Denies change in bowel habits and Denies heartburn Reports no additional complaints Musc Reports no additional complaints Skin/Breast Denies lesions and Denies rash Neuro Denies dizziness, Denies headache(s) and Denies weakness Psych Reports no additional complaints Endo Denies fatigue, Denies polydipsia, Denies polyuria and Denies palpitations James/Lymph Reports no additional complaints Aller/Immun Denies seasonal rhinorrhea and Denies wheezing Physical exam (Primary Care) Vital Signs: Last Vital Signs Pulse 80 09/18/23 11:38 BP 130/88 09/18/23 11:38 Pulse Ox 97 09/18/23 11:38 Oxygen Delivery Method Room Air 09/18/23 11:38 BMI result Body Mass Index 31.5 BMI Assessment/Plan discussion: High BMI High, discussed plan: lifestyle, weight reduction, dietary and physical activity Tobacco/Smoking Status: Tobacco use Status Tobacco use date assessed 09/18/23 09/18/23 11:34 Patient Tobacco Use Status Current everyday Tobacco 09/18/23 11:34 Tobacco use type Cigarette 09/18/23 11:34 e-Cigarette/Vaping Use Never Used 09/18/23 11:34 Are you ready to quit: No Depression Screening Interpretation: Negative Thrive Assessment: Date of Thrive Assessment Date Thrive assessed 09/18/23 09/18/23 11:34 Currently or been in a relationship where the following occur: No concerns reported Advance Care Planning discussion: Completed/Scanned Date of discussion: 09/18/23 Who was present: Patient Forms completed: Health Care Proxy Time spent: 16-45 minutes Actual minutes spent: 16 Const General: comfortable and no acute distress Nutritional Appearance: obese Orientation/consciousness: patient oriented x3 HENMT Head: Yes normocephalic and Yes atraumatic Ears: TM's normal bilaterally and EAC's normal General nose exam: Normal external nose present and No nasal discharge present Face and sinus: Yes face symmetric Mouth: Normal oral and palatal mucosa present and oropharynx normal Eyes General: appearance normal, both eyes and all related structures Neck Neck: Yes full ROM, Yes no lymphadenopathy and Yes supple Thyroid: Thyroid normal Chest Breast/axilla palpation: normal palpation of the breasts Resp Auscultation: clear to auscultation bilaterally Cardio Rate: regular rate Rhythm: regular rhythm Heart sounds: S1 normal heart sound present and S2 normal heart sound present GI Palpation (GI): Soft to palpation, nontender, no guarding and no masses Auscultation: normal bowel sounds General: Yes bladder normal to inspection and Yes no CVA tenderness External Female Exam: normal external appearance and normal appearance of the urethra Speculum Exam - Vagina: normal appearance of the vagina, normal palpation and normal vaginal discharge Speculum Exam - Cervix: normal palpation Bimanual exam- vagina & uterus: normal palpation, normal palpation and non- tender Bimanual Exam- Adnexa, other: normal adnexae, no masses, normal and No adnexal tenderness Back/Spine/Pelvis Back: no CVA tenderness and No back tenderness Skin General skin exam: no rashes or lesions noted Neuro General: patient oriented x3, gait normal, tone normal, moves all extremities, no focal motor deficits and CN's II-XI intact bilaterally Extrem General: Yes full ROM, Yes no joint enlargement, Yes no pedal edema, Yes no calf tenderness and Yes normal gait Psych Appearance: grossly normal and well kempt Mental Status: mental status grossly normal Speech and movement: Normal speech and movement present Affect: normal affect Attitude: cooperative Assessment and Plan Assessment & Plan (1) Annual visit for general adult medical examination with abnormal findings: Code(s): Z00.01 - Encounter for general adult medical examination with abnormal findings Plan: Will check appropriate labs. Continue regular dental visit every 6 months and regular eye exams, at least every 2 years. Take adequate calcium in diet and vitamin-D 3 at 2000 IU per cap once a day, in addition to weight-bearing exercises to help maintain good muscle tone and weight control. Instructed to do self-breast exam, and continue yearly mammogram, currently up-to-date. Cervical cancer screening done today colonoscopy procedure due again in 2025.. Advised to get her yearly flu shot, get a COVID booster, due in the fall, up-to-date with her pneumococcal vaccination, reminded to get shingles vaccine given at the pharmacy, 2 doses given to the six-month apart (2) Essential hypertension: Code(s): I10 - Essential (primary) hypertension Plan: Blood pressure at goal of less than 130/80. Reinforced importance of following a low sodium diet, getting regular exercise, and lowering stress levels. (3) Mixed dyslipidemia: Code(s): E78.2 - Mixed hyperlipidemia Plan: Fasting lipid panel ordered. Reinforced importance of following low-cholesterol diet, and getting regular exercise at least 30 minutes daily. (4) Not ready to quit smoking: Code(s): Z72.0 - Tobacco use Plan: Patient strongly advised to stop smoking, as smoking damages blood vessels, degenerative of joints and spine, damage to lungs and heart., predisposes to developing certain cancers like lung, breast, bladder, colon. Recommended to try decreasing cigarette use by 1-2 cigarettes a day. Advised to monitor what triggers are for smoking so that this can be discussed on the next office visit. We can discuss different options to quit smoking when ready. (5) Obesity (BMI 30.0-34.9): Code(s): E66.9 - Obesity, unspecified Plan: Your BMI is above the ideal range. . Discussed need to increase activity and weight reduction. Recommended focusing on improving health instead of dieting. Mediterranean diet is a healthy diet that helps, limit food high in fat, sugar, and calories. Eat slowly, pay attention to portion sizes, plan your meals ahead of time, start regular physical activity, at least 150 minutes of moderate intensity exercise, or 90 minutes per week of vigorous exercise. Keeping a food diary, tracking what you eat and your physical activity can help assess what improvements you can make. There are many health problems associated with being overweight/obese, so it is important to improve your diet and exercise. There are medications and surgical options available, but Lifestyle changes are the 1st step. (6) Tubular adenoma of colon: Comment: Two prior tas 2014 scope Code(s): D12.6 - Benign neoplasm of colon, unspecified Plan: Last colonoscopy done in 2022 showed 4 polyps 2 of which were adenoma which were removed, due for repeat colonoscopy again in 2025. (7) Advanced directives, counseling/discussion: Code(s): Z71.89 - Other specified counseling Plan: Initiated the conversation about Advanced Directives. Advanced Directives help patients prepare for current and future decisions about their medical treatment and place of care. Discussed with patient that it is a process where a patients current condition and prognosis are reviewed, their wishes for information regarding their illness are elicited, and likely medical dilemmas are presented and options discussed. Healthcare proxy form completed today. The form can be amended as needed, reviewed yearly and make changes as needed Orders: Orders PAP Smear Today Z12.4 - Encounter for screening for malignant neoplasm of cervix Aspartate Amino Transferase Today E66.9 - Obesity, unspecified, E78.2 - Mixed hyperlipidemia, I10 - Essential (primary) hypertension, Z72.0 - Tobacco use Basic Metabolic Panel Fasting Today E66.9 - Obesity, unspecified, E78.2 - Mixed hyperlipidemia, I10 - Essential (primary) hypertension, Z72.0 - Tobacco use Lipid Panel Today E66.9 - Obesity, unspecified, E78.2 - Mixed hyperlipidemia, I10 - Essential (primary) hypertension, Z72.0 - Tobacco use Vitamin D 25-OH Total Today E66.9 - Obesity, unspecified, E78.2 - Mixed hyperlipidemia, I10 - Essential (primary) hypertension, Z72.0 - Tobacco use Alanine Aminotransferase Today E66.9 - Obesity, unspecified, E78.2 - Mixed hyperlipidemia, I10 - Essential (primary) hypertension, Z72.0 - Tobacco use Coding Level of Care Code Est Pt Prev Care 40-64y(58412) Diagnoses Annual visit for general adult medical examination with abnormal findings Z00.01 Essential hypertension I10 Mixed dyslipidemia E78.2 Not ready to quit smoking Z72.0 Obesity (BMI 30.0-34.9) E66.9 Tubular adenoma of colon D12.6 Advanced directives, counseling/discussion Z71.89 Additional Codes TRISHA-7 Assessment Billing - TRISHA-7 Assessment Tool: TRISHA-7 Assessment 63942 ([id number]) Vital Signs *Quality* - Advance Care Planning discussion: Completed/Scanned ([id number]) Vital Signs *Quality* - Time spent: 16-45 minutes ([id number])
[2023-09-18 11:38] VITALS: BP 130/88; PULSE 80; O2SAT 97; BMI 31.5
== END 2023-09-18 12:07 | disposition home or self-care (01) ==
PROVIDERS: PCP Internal Medicine; Visit Provider Internal Medicine
DX: Z00.00 Encounter for general adult medical examination without abnormal findings (principal); I10 Essential (primary) hypertension; E78.2 Mixed hyperlipidemia; Z72.0 Tobacco use; E66.9 Obesity, unspecified; D12.6 Benign neoplasm of colon, unspecified; Z71.89 Other specified counseling
CPT/HCPCS: 1123F; 99396; 99497

== ENCOUNTER 2023-09-18 11:54 | Outpatient (REF) | payer BC, SELFPAY | END 2023-09-18 11:55 | disposition home or self-care (01) | LOC: HO.LNP 11:54 | PROVIDERS: Visit Provider Internal Medicine | DX: Z12.4 Encounter for screening for malignant neoplasm of cervix (principal) | CPT/HCPCS: 88175 ==

== ENCOUNTER 2023-09-19 08:23 | Outpatient (REF) | payer BC, SELFPAY ==
[2023-09-19 10:40] LABS: Alanine Aminotransferase 38 U/L (0-31); Anion Gap 12 (12-20); Aspartate Amino Transferase 29 U/L (5-31); Blood Urea Nitrogen 14 mg/dL (9-16); Calcium 9.7 mg/dL (8.4-10.2); Carbon Dioxide 26 mmol/L (22-29); Chloride 107 mmol/L (96-108); Cholesterol 261 mg/dL (<200); Estimated Glomerular Filt Rate > 60; Glucose Fasting 107 mg/dL (60-99); HDL Cholesterol 42 mg/dL (>40); LDL Cholesterol Calculated 169 mg/dL (<100); Potassium 4.2 mmol/L (3.3-5.1); Sodium 141 mmol/L (135-145); Triglycerides 252 mg/dL (<150)
[2023-09-19 10:58] LABS: Vitamin D 25-OH Total 84.5 ng/mL (>30)
== END 2023-09-19 08:24 | disposition home or self-care (01) ==
LOC: HO.HMGCLDS 08:23
PROVIDERS: PCP Internal Medicine; Visit Provider Internal Medicine
DX: E66.9 Obesity, unspecified (principal); Z72.0 Tobacco use; E78.2 Mixed hyperlipidemia; I10 Essential (primary) hypertension
CPT/HCPCS: 36415; 80048; 80061; 82306; 84450; 84460

== ENCOUNTER 2024-09-20 08:39 | Outpatient (REF) | payer BC, SELFPAY ==
--- OUTSIDE RECORDS SUMMARY | 2024-09-20 09:01 | XMS_ITS | Patient Health Record ---
Author Organization [facility] Address [address] [place] [address] Care Team Providers Care Logistics Assistant Name Role Phone Justine PATEL, Adrianne Mcconnell Primary Care Provider Un available Black, Kelly Unavailable [phone] Reason For Referral No Information Social History Tobacco use other than smoking: Question Answer Notes Are you an other tobacco user? No Problems No Known Problems Plan Of Treatment Pending Test Test Name Order Date [id number] NAIL, -12/07/2014 [id number] NAIL, 02-2103/08/2015 [id number] NAIL, 02-2107/05/2015 96847-Xuvg Destruction, 03-0207/05/2015 47732-Mmhj Destruction, 03-0210/11/2015 19505-Eneq Destruction, 03-0201/01/2016 28174-Ekmr Destruction, 03-0203/08/2015 29455-Cukx Destruction, 03-0202/28/2011 54530-Soxd Destruction, 03-0204/03/2011 25974-Qybp Destruction, 03-0203/31/2014 62483-Aesi Destruction, 03-0206/20/2014 32010-Ioji Destruction, 03-0209/07/2014 93214-Ieos Destruction, 03-0212/07/2014 55984-Pyxa Destruction, 03-0209/23/2011 80688-Hfxj Destruction, 03-0210/14/2011 54703-Bpgv Destruction, 03-0211/11/2011 27174-Lgbv Destruction, 03-0212/16/2011 14069-Ujim Destruction, 03-0205/06/2012 97607-Bfkg Destruction, 03-0206/08/2012 40885-Rksk Destruction, 03-0209/02/2012 55453-Rwjj Destruction, 03-0210/07/2012 82750-Djpw Destruction, 03-0211/16/2012 34788-Hfgy Destruction, 03-0204/15/2013 96324-Qgvr Destruction, 03-0205/17/2013 12897-Whvi Destruction, 03-0206/21/2013 13440- Debride <25 sq cm 05/15/2011 13999 I&D ABSCESS- SIMPLE,SINGLE 014 49478- Biopsy of skin lesion 05/01/2011 Insurance Providers Payer Name Payer Address Payer Phone Subscriber Number Group Number Insured Name Patient Relationship to Insured Coverage Start Date Coverage End Date [facility] [address] [place] [address] [id number] Devika Roper Self - patient is the insured Medical (General) History Medical History History ICD Code gall bladder removed chicken pox warts anxiety Surgical History Surgery Date(Month/Year) gall bladder breast surgery Hospitalization History Reason Date(Month/Year) [facility] [place] - Colonoscopy 12/26/2015
== END 2024-09-20 08:40 | disposition home or self-care (01) ==
LOC: HO.MAMMO 08:39
PROVIDERS: PCP Internal Medicine; Visit Provider Internal Medicine
DX: Z12.31 Encounter for screening mammogram for malignant neoplasm of breast (principal)
CPT/HCPCS: 77063; 77067

== ENCOUNTER → 2024-09-20 09:00 | Outpatient (BNV) | payer BC, SELFPAY | PROVIDERS: PCP Internal Medicine; Visit Provider Internal Medicine | DX: Z12.31 Encounter for screening mammogram for malignant neoplasm of breast (principal) | CPT/HCPCS: 77063; 77067 ==

== ENCOUNTER 2024-11-08 08:36 | Outpatient (AMB) | payer BC, SELFPAY ==
--- NOTE | 2024-11-08 08:42 | MHC.PC.OV ---
Vital Signs 11/08/24 08:44 Height 5 ft 3 in Weight 184 lb BMI 32.6 BP 130/90 H Blood Pressure Location Rt brachial Position Sitting Respiration 16 Pulse 79 Pulse Source Pulse Oximeter Temp 98.1 F Temp Source Oral Pulse Oximetry (%) 98 Oxygen Delivery Method Room Air Intake Visit Reasons: PE Intake Note: Pt is here today for her PE: Last mammogram 09/20/24, colonoscopy 04/29/22, papsmear 05/22/20 Allergies No Known Allergies (No Known Allergies*) Allergy (Verified 11/08/24 09:05) Medication List - Last Reconciled 11/08/24 by Adrianne Fletcher MD multivitamin 1 tab PO DAILY Tobacco use date assessed: 11/08/24 Dental Screening Dental Screen Date: 11/08/24 Did you have a dental visit in the last 12 months?: Yes Did you have a dental problem in the last 6 months where you did not have access to dental care?: No Was dental information given to patient?: Patient has dentist HPI PE HPI Details 64-year-old lady here today for her physical exam. She is up-to-date with her breast cancer screening, last done 09/20/2024 with negative findings. Last colon cancer screening was done in [address] Calvo with removal of 2 tubular adenomas, presence of internal hemorrhoids and diverticulosis seen, repeat colonoscopy due again in 2027. Last cervical cancer screening was done in 2020 with normal findings. Due again next year Smokes cigarettes, currently has no desire to quit. 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 She takes multivitamins and glucosamine gummies for joint pain. Her last blood work showed no anemia, but her cholesterol was high, and her blood sugar was slightly elevated at 107 mg/dL. She walks a mile every morning and maintains a healthy diet, suggesting a possible familial component to her elevated cholesterol. The patient has received her flu, shingles, and RSV vaccines. She uses stool softeners as needed for hemorrhoids. [facility] Medical History (Updated 11/08/24 @ 09:36 by Adrianne Fletcher MD) History of hemorrhoids History of anxiety disorder History of adenomatous polyp of colon Obesity (BMI 30.0-34.9) Not ready to quit smoking Mixed dyslipidemia Essential hypertension History of lipoma Surgical History History of colonoscopy with polypectomy Hx of dilation and curettage Hx of breast biopsy Hx laparoscopic cholecystectomy Family History Father History of hypertension Hx of hyperlipidemia History of cardiac arrhythmia Alzheimer disease Mother Diabetes Social History Housing: House Are you a primary healthcare science specialist to a significant other at home: No Do you presently have visiting nurse or other home services: No Alcohol intake: current Alcohol intake frequency: holidays/special occasions only Patient Tobacco Use Status: Current everyday Tobacco user Tobacco use type: Cigarette Cigarettes Per Day: 10 Years Smoked: 20 e-Cigarette/Vaping Use: Never Used service: No Current occupational status: employed Cognitive needs: No Hearing needs: No Vision needs: Yes Female Reproductive History Menstrual Age of Menarche: 13 Date of last pap smear: 05/22/20 Questionnaire PHQ-9 Over the last 2 weeks, how often have you been bothered by any of the following problems? 1. Little interest or pleasure in doing things: not at all 2. Feeling down, depressed, or hopeless: not at all 3. Trouble falling or staying asleep, or sleeping too much: not at all 4. Feeling tired or having little energy: not at all 5. Poor appetite or overeating: not at all 6. Feeling bad about yourself - or that you are a failure or have let yourself or your family down: not at all 7. Trouble concentrating on things, such as reading the newspaper or watching television: not at all 8. Moving or speaking so slowly that other people could have noticed. Or the opposite - being so fidgety or restless that you have been moving around a lot more than usual: not at all 9. Thoughts that you would be better off or of hurting yourself in some way: not at all Total score: 0 Depression Screening Interpretation: Negative Depression Screening Done: Yes 07076 - PHQ-9 Billing: Yes Source: Developed by Drs. Vamshi Lara, AnneJavier Pope and colleagues, with an educational clemente from [employer]. Thrive Questionnaire Date Thrive assessed: 11/01/24 I am a: Patient What is your living situation today?: I have a steady place to live Within the past 12 months, did the food you bought not last and you didn't have the money to get more?: Never true Within the past 12 months, did you worry whether your food would run out before you got money to buy more?: Never true Do you have trouble paying for medicines?: No Do you have trouble getting transportation to medical appointments?: No Do you have trouble paying your heating and electricity bill?: No Do you have trouble taking care of your child, family member or friend?: No Do you have trouble with day-to-day activities such as bathing, preparing meals, shopping, managing finances, etc.?: No Are you currently unemployed and looking for a job?: No Are you interested in more education?: No Please select the resources that you would like help with: None Currently or been in a relationship where the following occur: No concerns reported THRIVE Score: 0 AUDIT C Alcohol Use Questionnaire (AUDIT-C) 1. How often do you have a drink containing alcohol?: 2-3 times a week 2. How many drinks containing alcohol do you have on a typical day when you are drinking?: 1 or 2 3. How often do you have six or more drinks on one occasion?: Never Total Score: 3 Score Reviewed/Action Taken: Yes TRISHA-7 AMB Questionnaire TRISHA-7 Date TRISHA - 7 assessed: 11/08/24 Feeling nervous, anxious, or on edge: 0 = Not at all Not being able to stop or control worryin = Not at all Worrying too much about different things: 0 = Not at all Trouble relaxin = Not at all Being so restless that it is hard to sit still: 0 = Not at all Becoming easily annoyed or irritable: 0 = Not at all Feeling afraid as if something awful might happen: 0 = Not at all Total TRISHA-7 score (0-4 normal; 5-9 mild; 10-14 moderate; 15-21 severe): 0 Source: Developed by Anne Macedo Kurt Kroenke and colleagues, with an educational clemente from [employer]. TRISHA-7 Assessment Billing TRISHA-7 Assessment Tool: TRISHA-7 Assessment 93999 Review of Systems Const Denies body aches, Denies fatigue, Denies headache(s) and Denies weakness Eyes Details: Goes to [facility] Denies change in vision and Reports requires corrective lenses ENT Denies dizziness, Denies headache(s), Denies nasal congestion, Denies nasal discharge and Denies sore throat Card Denies chest pain, Denies lightheadedness, Denies palpitations and Denies dyspnea Resp Denies chest congestion, Denies cough, Denies dyspnea and Denies wheezing GI Denies abdominal pain, Denies change in bowel habits and Denies heartburn Reports no additional complaints Musc Reports no additional complaints Skin/Breast Denies lesions and Denies rash Neuro Denies dizziness, Denies headache(s) and Denies weakness Psych Reports no additional complaints Endo Denies fatigue, Denies polydipsia, Denies polyuria and Denies palpitations James/Lymph Reports no additional complaints Aller/Immun Denies seasonal rhinorrhea and Denies wheezing Physical exam (Primary Care) Vital Signs: Last Vital Signs Temp 98.1 F 11/08/24 08:44 Pulse 79 11/08/24 08:44 Resp 16 11/08/24 08:44 BP 130/90 H 11/08/24 08:44 Pulse Ox 98 11/08/24 08:44 Oxygen Delivery Method Room Air 11/08/24 08:44 BMI result Body Mass Index 32.6 BMI Assessment/Plan discussion: High BMI High, discussed plan: lifestyle, weight reduction, dietary and physical activity Tobacco/Smoking Status: Tobacco use Status Tobacco use date assessed 11/08/24 11/08/24 08:43 Patient Tobacco Use Status Current everyday Tobacco 11/08/24 08:42 Tobacco use type Cigarette 11/08/24 08:42 e-Cigarette/Vaping Use Never Used 11/08/24 08:42 Are you ready to quit: No PHQ-9: PHQ-9 Score PHQ-9: Total score 0 11/08/24 09:06 Depression Screening Interpretation: Negative Thrive Assessment: Date of Thrive Assessment Date Thrive assessed 11/01/24 11/08/24 08:42 Currently or been in a relationship where the following occur: No concerns reported Const General: no acute distress Nutritional Appearance: obese Orientation/consciousness: patient oriented x3 HENMT Head: Yes normocephalic Ears: TM's normal bilaterally and EAC's normal General nose exam: Normal external nose present and No nasal discharge present Face and sinus: Yes face symmetric Mouth: Normal oral and palatal mucosa present and oropharynx normal Eyes General: appearance normal, both eyes and all related structures Neck Neck: Yes full ROM, Yes no lymphadenopathy and Yes supple Thyroid: Thyroid normal Chest Breast/axilla palpation: normal palpation of the breasts Resp Auscultation: clear to auscultation bilaterally Cardio Rate: regular rate Rhythm: regular rhythm Heart sounds: S1 normal heart sound present and S2 normal heart sound present GI Palpation (GI): Soft to palpation, nontender, no guarding and no masses Auscultation: normal bowel sounds General: Yes bladder normal to inspection and Yes no CVA tenderness Back/Spine/Pelvis Back: no CVA tenderness and No back tenderness Skin General skin exam: no rashes or lesions noted Neuro General: patient oriented x3, gait normal, tone normal, moves all extremities, no focal motor deficits and CN's II-XI intact bilaterally Extrem General: Yes full ROM, Yes no joint enlargement, Yes no pedal edema, Yes no calf tenderness and Yes normal gait Psych Appearance: grossly normal and well kempt Mental Status: mental status grossly normal Speech and movement: Normal speech and movement present Affect: normal affect Coding Level of Care Code Est Pt Prev Care 40-64y(90910) Diagnoses Annual visit for general adult medical examination with abnormal findings Z00. Mixed dyslipidemia E78.2 Obesity (BMI 30.0-34.9) E66.9 History of adenomatous polyp of colon Z86.010 Not ready to quit smoking Z72.0 History of hemorrhoids Z87.19 Additional Codes TRISHA-7 Assessment Billing - TRISHA-7 Assessment Tool: TRISHA-7 Assessment 30165 ([id number]) PHQ-9 - 39887 - PHQ-9 Billing: Yes ([id number]) Assessment & Plan Assessment & Plan (1) Annual visit for general adult medical examination with abnormal findings: Code(s): Z00.01 - Encounter for general adult medical examination with abnormal findings Plan: Will check appropriate labs. Recommended dental visit every 6 months and regular eye exams, at least every 2 years, goes to [facility]. Take adequate calcium in diet and vitamin-D 3 at 2000 IU per cap once a day, in addition to weight-bearing exercises to help maintain good muscle tone and weight control. Instructed to do self-breast exam, and is up-to-date with her screening mammogram, done this year with negative findings. Will repeat another cervical cancer screening next year. Up-to-date with her screening colonoscopy done in 2022, due again in 2025 due to removal of 2 tubular adenoma polyps. up-to-date with her vaccines, flu shot given today. (2) Mixed dyslipidemia: Code(s): E78.2 - Mixed hyperlipidemia Category: Medical Plan: Fasting lipid panel ordered today. Continue with regular moderate intensity exercise and maintain a healthy diet. (3) Obesity (BMI 30.0-34.9): Code(s): E66.9 - Obesity, unspecified Category: Medical Plan: Recommended focusing on improving health instead of dieting. Mediterranean diet is a healthy diet that helps, limit food high in fat, sugar, and calories. Eat slowly, pay attention to portion sizes, plan your meals ahead of time, start regular physical activity, at least 150 minutes of moderate intensity exercise, or 90 minutes per week of vigorous exercise. (4) History of adenomatous polyp of colon: Comment: Two tubular adenoma removed on colonoscopy done in 2022, repeat due again in 2025 Code(s): Z86.010 - Personal history of colon polyps Category: Medical Plan: Repeat colonoscopy due again in [address] Calvo (5) Not ready to quit smoking: Code(s): Z72.0 - Tobacco use Category: Social Hx Plan: Patient strongly advised to stop smoking, as smoking damages blood vessels, degenerative of joints and spine, damage to lungs and heart., predisposes to developing certain cancers like lung, breast, bladder, colon. Recommended to try decreasing cigarette use by 1-2 cigarettes a day. Advised to monitor what triggers are for smoking so that this can be discussed on the next office visit. We can discuss different options to quit smoking when ready. Recommended to get lung cancer screening but patient not interested at this time (6) History of hemorrhoids: Code(s): Z87.19 - Personal history of other diseases of the digestive system Category: Medical Plan: The patient uses stool softeners as needed. Continued management with dietary modifications and stool softeners is advised Orders: Orders Alanine Aminotransferase Today E66.9 - Obesity, unspecified, E78.2 - Mixed hyperlipidemia, Z86.010 - Personal history of colon polyps Aspartate Amino Transferase Today E66.9 - Obesity, unspecified, E78.2 - Mixed hyperlipidemia, Z86.010 - Personal history of colon polyps Hemoglobin and Hematocrit Today E66.9 - Obesity, unspecified, E78.2 - Mixed hyperlipidemia, Z86.010 - Personal history of colon polyps Lipid Panel Today E66.9 - Obesity, unspecified, E78.2 - Mixed hyperlipidemia, Z86.010 - Personal history of colon polyps Basic Metabolic Panel Fasting Today E66.9 - Obesity, unspecified, E78.2 - Mixed hyperlipidemia, Z86.010 - Personal history of colon polyps Vitamin D 25-OH Total Today E66.9 - Obesity, unspecified, E78.2 - Mixed hyperlipidemia, Z86.010 - Personal history of colon polyps
[2024-11-08 08:44] VITALS: BP 130/90; PULSE 79; RESP 16; TEMP 36.7; O2SAT 98; BMI 32.6
== END 2024-11-08 09:29 | disposition home or self-care (01) ==
LOC: HO.HMCC 08:37
PROVIDERS: PCP Internal Medicine; Visit Provider Internal Medicine
DX: Z00.01 Encounter for general adult medical examination with abnormal findings (principal); E78.2 Mixed hyperlipidemia; E66.9 Obesity, unspecified; Z68.32 Body mass index [BMI] 32.0-32.9, adult; Z86.0100 Personal history of colon polyps, unspecified; Z72.0 Tobacco use; Z87.19 Personal history of other diseases of the digestive system

== ENCOUNTER 2024-11-08 08:36 | Outpatient (REF) | payer BC, SELFPAY ==
[2024-11-08 13:19] LABS: Hematocrit 47.4 % (37.0-47.0); Hemoglobin 15.5 g/dl (12.0-16.0)
[2024-11-08 13:48] LABS: Alanine Aminotransferase 35 U/L (0-31); Anion Gap 13 (12-20); Aspartate Amino Transferase 35 U/L (5-31); Blood Urea Nitrogen 15 mg/dL (9-16); Calcium 9.8 mg/dL (8.4-10.2); Carbon Dioxide 26 mmol/L (22-29); Chloride 105 mmol/L (96-108); Cholesterol 281 mg/dL (<200); Estimated Glomerular Filt Rate > 60; HDL Cholesterol 47 mg/dL (>40); Potassium 4.1 mmol/L (3.3-5.1); Sodium 140 mmol/L (135-145); Triglycerides 232 mg/dL (<150)
== END 2024-11-08 08:37 | disposition home or self-care (01) ==
LOC: HO.HMGCLDS 08:36
PROVIDERS: PCP Internal Medicine; Visit Provider Internal Medicine
DX: Z00.01 Encounter for general adult medical examination with abnormal findings (principal); F17.210 Nicotine dependence, cigarettes, uncomplicated; E78.2 Mixed hyperlipidemia; E66.9 Obesity, unspecified; Z86.0101 Personal history of adenomatous and serrated colon polyps; Z87.19 Personal history of other diseases of the digestive system; Z68.32 Body mass index [BMI] 32.0-32.9, adult
CPT/HCPCS: 36415; 80048; 80061; 82306; 84450; 84460; 85014; 85018; 96127

== ENCOUNTER 2024-12-30 07:59 | Outpatient (REF) | payer BC, SELFPAY ==
[2024-12-30 13:15] LABS: Resp Syncy Virus RNA Qual PCR NEGATIVE (Negative); SARS COV2 PCR INHOUSE NEGATIVE (Negative)
== END 2024-12-30 08:00 | disposition home or self-care (01) ==
LOC: HO.LNP 07:59
PROVIDERS: PCP Internal Medicine; Visit Provider Physician Assistant Medical
DX: R05.1 Acute cough (principal); J02.9 Acute pharyngitis, unspecified; R09.89 Other specified symptoms and signs involving the circulatory and respiratory systems; F17.210 Nicotine dependence, cigarettes, uncomplicated
CPT/HCPCS: 87637; 87880

== ENCOUNTER 2024-12-30 07:59 | Outpatient (AMB) | payer BC, SELFPAY ==
--- OUTSIDE RECORDS SUMMARY | 2024-12-30 08:02 | XMS_ITS | Patient Health Record ---
Author Organization [facility] Address [address] [place] [address] Care Team Providers Care Employment Security Officer Name Role Phone Justine PATEL, Adrianne Mcconnell Primary Care Provider Un available Black, Kelly Unavailable [phone] Reason For Referral No Information Social History Tobacco use other than smoking: Question Answer Notes Are you an other tobacco user? No Problems No Known Problems Plan Of Treatment Pending Test Test Name Order Date [id number] NAIL, -12/07/2014 [id number] NAIL, 02-2103/08/2015 25699-QVNVCUQ NAIL, 02-2107/05/2015 79210-Slah Destruction, 03-0207/05/2015 24800-Jlix Destruction, 03-0210/11/2015 62140-Pzbz Destruction, 03-0201/01/2016 97234-Crmp Destruction, 03-0203/08/2015 40988-Vdda Destruction, 03-0202/28/2011 63435-Swuu Destruction, 03-0204/03/2011 85643-Pppk Destruction, 03-0203/31/2014 14813-Jium Destruction, 03-0206/20/2014 27087-Rsrh Destruction, 03-0209/07/2014 17005-Rlfj Destruction, 03-0212/07/2014 87457-Dqeh Destruction, 03-0209/23/2011 72424-Wify Destruction, 03-0210/14/2011 28980-Etxt Destruction, 03-0211/11/2011 58895-Iqdz Destruction, 03-0212/16/2011 51176-Kkaq Destruction, 03-0205/06/2012 39560-Tcuj Destruction, 03-0206/08/2012 57565-Idrm Destruction, 03-0209/02/2012 43768-Xwsa Destruction, 03-0210/07/2012 02644-Nmzw Destruction, 03-0211/16/2012 60985-Lkez Destruction, 03-0204/15/2013 32639-Bsqf Destruction, 03-0205/17/2013 56988-Xngi Destruction, 03-0206/21/2013 94757- Debride <25 sq cm 05/15/2011 50534 I&D ABSCESS- SIMPLE,SINGLE 014 45303- Biopsy of skin lesion 05/01/2011 Insurance Providers Payer Name Payer Address Payer Phone Subscriber Number Group Number Insured Name Patient Relationship to Insured Coverage Start Date Coverage End Date [facility] [address] [place] [address] [id number] Devika Roper Self - patient is the insured Medical (General) History Medical History History ICD Code gall bladder removed chicken pox warts anxiety Surgical History Surgery Date(Month/Year) gall bladder breast surgery Hospitalization History Reason Date(Month/Year) [facility] [place] - Colonoscopy 12/26/2015
[2024-12-30 08:09] VITALS: BP 140/82; PULSE 93; TEMP 36.6; O2SAT 97
--- NOTE | 2024-12-30 08:09 | AM.OFFWIN_ITS ---
Intake Vital Signs 12/30/24 08:09 Height 5 ft 3 in BMI Reason not done Patient refused/unable BP 140/82 H Blood Pressure Location Rt brachial Position Sitting Pulse 93 Pulse Source Pulse Oximeter Temp 97.8 F Temp Source Oral Pulse Oximetry (%) 97 Oxygen Delivery Method Room Air Intake Visit Reasons: EP-sore throat, b/l ears pain, cough Intake Note: Patient presents c/o sore throat, cough, bilateral ear pain x1 week Patient Tobacco Use Status: Current everyday Tobacco user Allergies No Known Allergies (No Known Allergies*) Allergy (Verified 12/30/24 08:11) Do you need a note to return to daycare/school/sports/work: No HPI HPI Comments History of Present Illness Details History of Present Illness - The patient is a 64-year-old female pr esenting with sore throat and cough. - The patient reports being sick for ove r a week with a cough and throat discomfort radiating to the ears. - The cough is productive with green spu tremayne, and there is no fever reported. - She has pain when she swallows, left i s worse than the right. - She has no sinus pain or congestion. - She denies fever or chills. - She has no sick contacts or travel. - She denies CP, SOB, abd pain, or n/v/d . Physical Exam General: Cooperative, healthy appearing, comfortable, no acute distress and well developed Orientation: Patient oriented x3 Limitations: No limitations Head: Normal to inspection Ears: No tragus noted, no mastoid tenderness noted. No swelling in the canal. No discharge noted. TM is clear, not bulging noted. Nose: Normal external nose present Face and sinus: Normal facial exam. No sinus tenderness noted. Neck: Normal visual inspection and Yes full ROM. No lymphadenopathy noted. Respiratory: Normal respiratory effort and able to speak in complete sentences. Clear to auscultation bilaterally. No w/r/r noted. Cardiovascular: Regular rate and rhythm. Normal S1 and S2. No m/r/g noted. Skin: No rashes or lesions noted Patient was informed and verbally consented to the use of an ambient scribe for clinic note documentation during this visit. [facility] Medical History (Updated 11/08/24 @ 09:36 by Adrianne Fletcher MD) History of hemorrhoids History of anxiety disorder History of adenomatous polyp of colon Obesity (BMI 30.0-34.9) Not ready to quit smoking Mixed dyslipidemia Essential hypertension History of lipoma Surgical History History of colonoscopy with polypectomy Hx of dilation and curettage Hx of breast biopsy Hx laparoscopic cholecystectomy Family History Father History of hypertension Hx of hyperlipidemia History of cardiac arrhythmia Alzheimer disease Mother Diabetes Social History Housing: House Are you a primary patient care director to a significant other at home: No Do you presently have visiting nurse or other home services: No Alcohol intake: current Alcohol intake frequency: holidays/special occasions only Patient Tobacco Use Status: Current everyday Tobacco user Tobacco use type: Cigarette Cigarettes Per Day: 4 Years Smoked: 20 e-Cigarette/Vaping Use: Never Used service: No Current occupational status: employed Cognitive needs: No Hearing needs: No Vision needs: Yes Female Reproductive History Menstrual Age of Menarche: 13 Review of Systems Const All systems reviewed & are unremarkable except as noted in HPI and below Physical Exam Vital Signs: Last Vital Signs Temp 97.8 F 12/30/24 08:09 Pulse 93 12/30/24 08:09 BP 140/82 H 12/30/24 08:09 Pulse Ox 97 12/30/24 08:09 Oxygen Delivery Method Room Air 12/30/24 08:09 Results AMB Rapid Strep AMB Rapid Strep Negative Last Edit by Wendy Mckeon CMA on 12/30/24 08: 25 Results Reviewed Results Reviewed: Laboratory Last Values Strep Scn Rapid Clinic Negative 12/30/24 08:17 Assessment & Plan Assessment & Plan (1) Sore throat: Code(s): J02.9 - Acute pharyngitis, unspecified (2) Cough: Code(s): R05.9 - Cough, unspecified Qualifiers: Cough type: acute Qualified Code(s): R05.1 - Acute cough Plan Most likely URI vs pharyngitis vs covid vs flu vs RSV Rapid is negative plan - Initiate antibiotic therapy with liquid formulation due to difficulty swa llowing pills. - Conduct a viral swab to rule out viral infection. - Provide cough medicine for symptomatic relief. - tylenol or motrin as needed - diet as tolerated - follow up with PCP Orders: Orders AMB Rapid Strep Screen Today Z13.9 - Encounter for screening, unspecified Medications: New amoxicillin-pot clavulanate 250-62.5 mg/5 mL (Augmentin) 10 mL PO BID 140 mL 0RF 7 days benzonatate 100 mg PO bid-tid PRN 21 caps 0RF Cough 7 days Coding Level of Care Code Est Pt Level 3 (24387) Diagnoses Sore throat J02.9 Acute cough R05.1 Cough type: acute
== END 2024-12-30 09:15 | disposition home or self-care (01) ==
PROVIDERS: PCP Internal Medicine; Visit Provider Physician Assistant Medical
DX: J02.9 Acute pharyngitis, unspecified (principal); R05.1 Acute cough; Z13.9 Encounter for screening, unspecified

== ENCOUNTER 2025-01-19 11:09 | Inpatient (IN) | payer BC, SELFPAY ==
--- NOTE | ~2025-01-19 | FL_ITS ---
EXAMINATION: FL GUIDANCE ONLY HISTORY: ankle fx, right COMPARISON: Correlation is made to plain films of the right ankle dated 01/19/2025. TECHNIQUE: Fluoroscopy time: 5 seconds. Cumulative Dose: 0.20 mGy. DAP: 33.90 mGycm2 Images: 5. FINDINGS: Fluoroscopic spot films of the right ankle demonstrate reduction of the previously seen posterior dislocation of the talus respectively tibia. Fractures of the distal fibula and medial and posterior malleoli are again noted. FL/FL guidance in OR IMPRESSION: Fluoroscopy during procedure. Please see procedure report for additional information. Electronically signed by: Vamshi Rosas MD 01/20/2025 02:15 PM [facility]
--- NOTE | ~2025-01-19 | XR_ITS ---
EXAMINATION: XR ANKLE, RIGHT CLINICAL INFORMATION: postreduction COMPARISON: Comparison made with study performed 20 minutes earlier TECHNIQUE: AP and lateral views of the right ankle. FINDINGS: There is now a splint in place. There is 25 degrees angulation of the distal fibular fracture, with apex directed anteriorly. There is persistent posterior dislocation of the talus from the tibial plafonds. There is a transverse fracture across the base of the medial malleolus XR/XR ankle RT min 3V IMPRESSION: Persistent angular deformity of the fibula and posterior dislocation of talus relative to the tibial plafond. Electronically signed by: Dar Esquivel MD 01/19/2025 01:06 PM [facility]
--- NOTE | ~2025-01-19 | XR_ITS ---
EXAMINATION: XR ANKLE, RIGHT CLINICAL INFORMATION: fall, fracture COMPARISON: None available. TECHNIQUE: AP and lateral views of the right ankle. FINDINGS: There is an oblique fracture through the distal third diaphysis of the fibula with apex of angular deformity directed medially 25 degrees. There is dislocation of the talotibial joint with lateral displacement of the foot and ankle nearly the full width of talar dome. There is likely a posterior malleolar fracture with a bony fragment seen overlapping the talar dome. The medial malleolus is not well demonstrated, fracture is not ruled in or out but is suspected XR/XR ankle RT min 3V IMPRESSION: Ankle fracture with dislocation and angular deformity. Electronically signed by: Dar Esquivel MD 01/19/2025 01:02 PM [facility]
[2025-01-19 11:19] VITALS: BP 164/83; BP 238/96; PULSE 115; PULSE 93; RESP 18; TEMP 36.8; O2SAT 98; O2SAT 99; BMI 33.1
--- NOTE | 2025-01-19 11:30 | ED.LOWEXIN ---
HPI - Extremity Injury (Lower) General Chief Complaint: Extremity Injury, Lower Stated Complaint: FALL DOWN 4 STEPS,-LOC,R ANKLE PAIN Time Seen by Provider: 01/19/25 11:25 Source: patient and EMS Mode of arrival: EMS Limitations: no limitations History of Present Illness ED Provider: DR. Carreon HPI Narrative: 64-year-old female came in by ambulance for evaluation after she sustained a mechanical fall this morning, patient was going down stairs with a laundry close on the ground the patient tripped on a causing her to fall 4 steps of stairs patient heard a pop in her right ankle then noticed deformity in the right ankle patient is unable to ambulate or bear weight on the left ankle. No head injury, no neck pain, no LOC, no headache, no blood thinner, no CP, no SOB, no abdominal pain. Related Data Home Medications ?Medication ?Instructions ?Recorded ?Confirmed multivitamin 1 tab PO DAILY 11/08/24 11/08/24 Previous Rx's ?Medication ?Instructions ?Recorded amoxicillin 250 mg-potassium 10 ml PO BID 7 days #140 mL 12/30/24 clavulanate 62.5 mg/5 mL oral suspension (Augmentin) benzonatate 100 mg capsule 100 mg PO bid-tid PRN Cough 7 days 12/30/24 #21 caps Allergies Allergy/AdvReac Type Severity Reaction Status Date / Time No Known Allergies (No Known Allergy Verified 01/19/25 11:21 Allergies*) Review of Systems Review of Systems: All other systems are reviewed and are negative Constitutional: Reports as per HPI and Reports no additional constitutional complaints Eyes: Reports as per HPI and Reports no additional eye complaints Reports system reviewed and no additional complaints, except as documented Cardiovascular: Reports as per HPI and Reports no additional cardiovascular complaints Respiratory: Reports as per HPI and Reports no additional respiratory complaints Gastrointestinal: Reports as per HPI and Reports no additional gastrointestinal complaints Genitourinary: Reports no additional female genitourinary complaints Musculoskeletal: Reports no additional musculoskeletal complaints Skin/Breast: Reports system reviewed and no additional complaints, except as docu Psychiatric: Reports no additional psychiatric complaints Endocrine: Reports no additional endocrine complaints Hematologic/Lymphatic: Reports no additional hematologic/lymphatic complaints Allergic/Immunologic: Reports no additional allergic/immunologic complaints Reports system reviewed and no additional complaints, except as documented and Reports Abnormal speech present [facility] Past Medical History Medical History History of hemorrhoids History of anxiety disorder History of adenomatous polyp of colon Obesity (BMI 30.0-34.9) Not ready to quit smoking Mixed dyslipidemia Essential hypertension History of lipoma Surgical History History of colonoscopy with polypectomy Hx of dilation and curettage Hx of breast biopsy Hx laparoscopic cholecystectomy Family History Family History Father History of hypertension Hx of hyperlipidemia History of cardiac arrhythmia Alzheimer disease Mother Diabetes Social History Social History Housing: House Are you a primary group care worker to a significant other at home: No Do you presently have visiting nurse or other home services: No Alcohol intake: current Alcohol intake frequency: holidays/special occasions only Patient Tobacco Use Status: Current everyday Tobacco user Tobacco use type: Cigarette Cigarettes Per Day: 4 Years Smoked: 20 e-Cigarette/Vaping Use: Never Used Advance Directives: No Advance Directives Information Provided: Yes service: No Current occupational status: employed Cognitive needs: No Hearing needs: No Vision needs: Yes Physical Exam Vital Signs: Vital Signs: Last Vital Signs Temp 98.3 F 01/19/25 11:19 Pulse 93 01/19/25 11:19 Resp 18 01/19/25 11:19 BP 164/83 H 01/19/25 11:19 Pulse Ox 99 01/19/25 11:19 O2 Del Method Room Air 01/19/25 11:19 BMI result Body Mass Index 33.1 Vital signs have been reviewed and appear to be correct. Blood pressure elevated. Heart rate normal. Respiratory rate normal. Temperature normal. Oxygen saturation normal. Appearance: Alert. Oriented X3. No acute distress. Head: Normal external exam. Normocephalic. Atraumatic. No Zhao signs noted. No raccoon eyes noted Eyes: PERRLA. EOMI. Conjunctiva and sclera normal. Eyelids normal. ENT: TM's Normal. Pharynx normal. Uvula midline. Moist mucous membranes. No trismus noted. No drooling noted. No muffled voice noted. Neck: Normal inspection. Neck supple. FROM. No adenopathy. Thyroid Normal. No meningeal signs. No neck mass noted. CVS: Normal heart rate and rhythm. Heart sound normal. No murmurs noted. Pulses normal throughout. Respiratory: No respiratory distress. Painless inspiration. Breath sounds normal. No wheezes/rales/rhonchi noted. Chest nontender. No accessory muscle usage noted or decreased air movement noted. Abdomen: Soft and nontender. Bowel sounds normal in all 4 quadrants. No distention noted. No organomegaly noted. No visible injury noted. Back: No CVA tenderness. Full range of motion noted. Skin: Skin warm and dry. Normal skin color. Normal skin turgor. No rashes/lesions/lacerations noted. Extremities: left lower extremity: Left ankle deformity with diffuse tenderness of the left ankle, otherwise hemodynamically stable. Neuro: Oriented X 3. Cranial nerve exam: II-XII are grossly intact No motor deficit. No sensory deficit. Reflexes normal. Course Reevaluation(s) Reevaluation #1: 64-year-old female sustained a mechanical fall, complicated trimalleolar fracture that appeared to be unstable, unable to completely reduce the fracture and keep it immobilized and splinted, fortunately left foot/ ankle is neurovascularly intact. Case discussed with Suzi from ortho service who will admit the patient for further surgical internal fixation Time: 12:22 Medications Administered Discontinued Medications Generic Name Dose Route Start Last Admin Trade Name Freq PRN Reason Stop Dose Admin Hydromorphone HCl 1 mg 01/19/25 11:29 01/19/25 11:34 Hydromorphone Hcl 1 Mg/Ml Syringe IVPUSH 01/19/25 11:30 1 mg ONCE ONE Administration Protocol Ketorolac Tromethamine 15 mg 01/19/25 11:29 01/19/25 11:34 Ketorolac Tromethamine 15 Mg/Ml Vial IVPUSH 01/19/25 11:30 15 mg ONCE ONE Administration Lidocaine HCl 10 ml 01/19/25 11:49 01/19/25 11:53 Lidocaine Hcl 2 % Mpf 5 Ml Vial SUBCUT 01/19/25 11:50 10 ml ONCE ONE Administration Medical Decision Making Differential Diagnosis Differential Diagnoses: The differential diagnosis associated with the presentation includes ( head injury, cervical spine injury, chest injury, back injury, abdominal injury, extremity injuries.) Admission/Observation Consideration of admission/observation: Escalation of care including admission/observation considered Consult Healthcare Provider Management of the patient was discussed with: Rounding And Backing Machine Operator (Suzi montano (On-call for ortho)) Independent Interpretation I performed an independent interpretation of an: Plain X-Ray ( left ankle/ left foot x-ray: Trimalleolar fracture) Radiology Impression Discussion of test interpretation with radiology: I have reviewed the radiologist's reading. Procedures Orthopedic Fracture Reduction Fracture #1: Time Out Performed: Yes Side: left Fracture Reduction Location: tibia and fibula Analgesia: hematoma block Technique: traction/counter-traction Post Reduction X-rays Demonstrate: acceptable reduction Post-reduction neuro exam: intact Post-reduction vascular exam: intact Splint Applied: Yes Patient Tolerated Procedure: well Discharge Plan Discharge Clinical Impression: Ankle fracture, left Patient Disposition: Admitted As Inpatient Print Language: Estonian
[2025-01-19] MEDS: Lidocaine HCl 2 % MPF 5 ML VIAL 10 ML SUBCUT (11:53)
[2025-01-19 12:43] LABS: MANUAL DIFF FLAG NO
[2025-01-19 12:46] LABS: Hematocrit 43.5 % (37.0-47.0); Hemoglobin 14.6 g/dl (12.0-16.0); Imm Gran Abs Auto 0.05 X10*3/uL (0.00-0.03); Imm Gran Pct Auto 0.4 % (0.0-0.4); Lymphocytes Absolute Auto 2.6 X10*3/uL (1.2-4.9); Mean Corpuscular HGB Conc 33.6 g/dl (31.0-35.0); Mean Corpuscular Hemoglobin 30.7 pg (27.0-33.0); Mean Corpuscular Volume 91.4 fL (80.0-98.0); NRBC Abs Auto 0.000 X10*3/uL (0.0-0.012); NRBC Pct Auto 0.0 /100WBC (0.0-0.2); Platelet Count 348 X10*3/uL (160-400); Red Blood Count 4.76 X10*6/uL (4.20-5.50); White Blood Count 12.8 X10*3/uL (4.8-10.8)
[2025-01-19 12:59] LABS: INTERNATIONAL NORM RATIO 1.0 (0.9-1.1); Prothrombin Time 12.6 SEC (11.2-13.5)
[2025-01-19 13:15] LABS: Alanine Aminotransferase 29 U/L (0-31); Anion Gap 11 (12-20); Aspartate Amino Transferase 33 U/L (5-31); Blood Urea Nitrogen 22 mg/dL (9-16); Calcium 9.2 mg/dL (8.4-10.2); Carbon Dioxide 20 mmol/L (22-29); Chloride 112 mmol/L (96-108); Creatinine Clr Calc Pharmacy 105.6; Estimated Glomerular Filt Rate > 60; Potassium 4.9 mmol/L (3.3-5.1); Sodium 138 mmol/L (135-145); Total Protein 7.1 g/dL (6.5-8.0)
[2025-01-19 13:16] LABS: Albumin Level 4.0 g/dL (3.5-5.0); Alkaline Phosphatase 81 U/L (39-117); Lipase 149 U/L (8-78)
--- NOTE | 2025-01-19 13:28 | PHA.MEDREC ---
Addendum entered by Reina Barreto RPh 01/19/25 13:35: Reviewed by [facility] Original Note: Pharmacy Consult ? Medication Reconciliation Pharmacy has completed the medication reconciliation. Spoke with pt and she confirmed her medications. Pt confirmed she is taking Prevagen once daily.
--- NOTE | 2025-01-19 13:38 | PM.CNOR ---
History of Present Illness HPI Consult date: 01/19/25 Chief complaint: FALL DOWN 4 STEPS,-LOC,R ANKLE PAIN Narrative: Ms. Roper is a 64-year-old female with a PMH only significant for 4-6 cigarettes per day who presented to the ED after a mechanical fall going down her basement stairs. After the fall she was unable to ambulate due to pain. X-rays in the Emergency Department revealed a right ankle fracture dislocation. The patient was reduced and splinted. However the ankle remained unstable and self disclocated. The patient was then admitted to the orthopedic service for further evaluation and treatment. Patient is ambulatory at baseline without the use of any assistive devices. She lives at home with her and mother, whome she cares for. Review of Systems Review of Systems: Yes all other systems are reviewed and are negative [facility] Past Medical History Medical History History of hemorrhoids History of anxiety disorder History of adenomatous polyp of colon Obesity (BMI 30.0-34.9) Not ready to quit smoking Mixed dyslipidemia Essential hypertension History of lipoma Family History Family History Father History of hypertension Hx of hyperlipidemia History of cardiac arrhythmia Alzheimer disease Mother Diabetes Surgical History Surgical History History of colonoscopy with polypectomy Hx of dilation and curettage Hx of breast biopsy Hx laparoscopic cholecystectomy Social History Social History Housing: House Are you a primary aged or disabled carer to a significant other at home: No Do you presently have visiting nurse or other home services: No Alcohol intake: current Alcohol intake frequency: holidays/special occasions only Patient Tobacco Use Status: Current everyday Tobacco user Tobacco use type: Cigarette Cigarettes Per Day: 4 Years Smoked: 20 e-Cigarette/Vaping Use: Never Used Advance Directives: No Advance Directives Information Provided: Yes service: No Current occupational status: employed Cognitive needs: No Hearing needs: No Vision needs: Yes Meds Allergies Allergy/AdvReac Type Severity Reaction Status Date / Time No Known Allergies (No Known Allergy Verified 01/19/25 11:21 Allergies*) Home Medications ?Medication ?Instructions ?Recorded ?Confirmed ?Last Taken ?Type Prevagen Regular Strength 1 cap PO DAILY 01/19/25 01/19/25 01/18/25 History multivitamin with minerals-folic 1 tab PO DAILY 01/19/25 01/19/25 01/18/25 History acid 200 mcg chewable tablet (Multivitamin Gummies) soluble corn fiber-inulin 1.7 gram 1 tab PO DAILY 01/19/25 01/19/25 01/18/25 History chewable tablet (Metamucil (inulin-corn fiber)) Physical Exam Vital Signs: Vital Signs: Last Vital Signs Temp 98.3 F 01/19/25 11:19 Pulse 93 01/19/25 11:19 Resp 18 01/19/25 11:19 BP 164/83 H 01/19/25 11:19 Pulse Ox 99 01/19/25 11:19 O2 Del Method Room Air 01/19/25 11:19 BMI result Body Mass Index 33.1 Const: General: cooperative, healthy appearing and no acute distress Resp: Effort & Inspection: normal respiratory effort and able to speak in complete sentences Extrem: Other: Right ankle placed in splint. Able to move all digits. Reports sensation is intact. Capillary refill is brisk. Psych: Appearance: grossly normal Mental Status: mental status grossly normal Attitude: cooperative Results Labs 01/19/25 12:36 01/19/25 12:36 Labs: Abnormal lab results 01/19/25 Range/Units 12:36 WBC 12.8 H (4.8-10.8) X10*3/uL Abs Immat Gran (auto) 0.05 H (0.00-0.03) X10*3/uL Absolute Neuts (auto) 9.0 H (2.0-8.3) x10*3/uL Chloride 112 H (96-108) mmol/L Carbon Dioxide 20 L (22-29) mmol/L Anion Gap 11 L (12-20) BUN 22 H (9-16) mg/dL Random Glucose 119 H (60-115) mg/dL AST 33 H (5-31) U/L Lipase 149 H (8-78) U/L H & H 01/19/25 Range/Units 12:36 Hgb 14.6 (12.0-16.0) g/dl Hct 43.5 (37.0-47.0) % Coagulation 01/19/25 Range/Units 12:36 INR 1.0 (0.9-1.1) All other labs normal. Assessment and Plan (1) Fracture of ankle, right, closed: Status: Acute (2) Dislocation of ankle, right, closed: Status: Acute Plan I discussed the case with Dr. Lopse, and explained the extent of the injury to the patient and options available which include surgical intervention. I explained the procedure in detail along with the length of recovery and rehab course. I explained the risk, benefits and alternatives.? Risks including, but not limited to infection, blood clots, bleeding, delayed healing, non union malunion, post-traumatic arthritis and nerve/tissue damage to surrounding areas, numbness, scar sensitivity, irritation from plates/screws, hardware loosening or breakage, and need for later removal.?Benefits include, restoring proper alignment, improving ankle mobility and function, reduced long-term risk of arthritis, chronic pain or deformity, earlier mobilization of compared to no-operative treatment in unstable fractures. Alternatives include, Non-surgical management; casting or splinting with strict nonweightbearing. The patient had ample opportunity to ask questions. All questions were answered to the patient's satisfaction. The patient verbalized understanding and agreed to move forward with a right ankle open reduction internal fixation vs. external fixator performed by Dr. Lopes. The patient demonstrates understanding of the risks, benefits and alternatives and wishes to proceed.? The patient is admitted to the orthopedic service. Strict elevation on three pillows above heart level to manage swelling NWB RLE NPO after midnight Procedures Date of Service Date of Service: 01/19/25
--- OUTSIDE RECORDS SUMMARY | 2025-01-19 14:13 | XMS_ITS | Patient Health Record ---
Author Organization [facility] Address [address] [place] [address] Care Team Providers Care Booster Station Operator Name Role Phone Justine PATEL, Adrianne Mcconnell Primary Care Provider Un available Black, Kelly Unavailable [phone] Reason For Referral No Information Social History Tobacco use other than smoking: Question Answer Notes Are you an other tobacco user? No Problems No Known Problems Plan Of Treatment Pending Test Test Name Order Date [id number] NAIL, -12/07/2014 [id number] NAIL, 02-2103/08/2015 [id number] NAIL, 02-2107/05/2015 03401-Cior Destruction, 03-0207/05/2015 55081-Mwnm Destruction, 03-0210/11/2015 72239-Vqit Destruction, 03-0201/01/2016 31695-Utzl Destruction, 03-0203/08/2015 91967-Whqi Destruction, 03-0202/28/2011 59686-Nppe Destruction, 03-0204/03/2011 07438-Uovg Destruction, 03-0203/31/2014 96381-Hvrr Destruction, 03-0206/20/2014 34048-Hsmf Destruction, 03-0209/07/2014 55761-Ylcz Destruction, 03-0212/07/2014 12299-Idch Destruction, 03-0209/23/2011 14133-Pogk Destruction, 03-0210/14/2011 38949-Gxtm Destruction, 03-0211/11/2011 55591-Evjr Destruction, 03-0212/16/2011 64630-Lwzz Destruction, 03-0205/06/2012 64621-Iens Destruction, 03-0206/08/2012 48124-Rmbb Destruction, 03-0209/02/2012 03179-Vqov Destruction, 03-0210/07/2012 14455-Gkqi Destruction, 03-0211/16/2012 73337-Dtdi Destruction, 03-0204/15/2013 27569-Mijo Destruction, 03-0205/17/2013 95831-Phhn Destruction, 03-0206/21/2013 62377- Debride <25 sq cm 05/15/2011 00266 I&D ABSCESS- SIMPLE,SINGLE 014 89223- Biopsy of skin lesion 05/01/2011 Insurance Providers Payer Name Payer Address Payer Phone Subscriber Number Group Number Insured Name Patient Relationship to Insured Coverage Start Date Coverage End Date [facility] [address] [place] [address] [id number] Devika Roper Self - patient is the insured Medical (General) History Medical History History ICD Code gall bladder removed chicken pox warts anxiety Surgical History Surgery Date(Month/Year) gall bladder breast surgery Hospitalization History Reason Date(Month/Year) [facility] [place] - Colonoscopy 12/26/2015
[2025-01-19] MEDS: Lactated Ringers 1,000 ML 100 ML IVCONT (14:37)
[2025-01-19] MEDS: Nicotine 14 MG PATCH.TD24 TRANSDERMA (14:38)
[2025-01-19] MEDS: oxyCODONE HCl Immed Release 5 MG TABLET PO (14:40)
--- NOTE | 2025-01-19 14:50 | HO.NURTONUR ---
64F who presented to the ED 01/19 after falling down some stairs. Pt arrived with right ankle deformity noted, xray shows Ankle fracture with dislocation and angular deformity. Pt splinted by ED MD. Plan for surgery tomorrow, NPO after 12am. Pt A&Ox3, ax1 to commode (stand/pivot). Left lateral AC #20 with LR @100/ml/hr. Nicotene patch to left bicep.
[2025-01-19 17:21] VITALS: BP 116/70; PULSE 79; RESP 20; TEMP 36.6; O2SAT 96
--- NOTE | 2025-01-19 19:14 | PC.NURSE ---
This RN assumed pt care @ 1900. Pt a&ox4, no signs of distress. Pt reports 08/26 ankle pain Plan of care ongoing.
--- NOTE | 2025-01-19 19:50 | PC.NURSE ---
Pt assisted to bedside commode and back into bed, positioned for comfort. Rt ankle elevated w/ x2 pillows Pt medicated per [facility] Plan of care ongoing.
[2025-01-19 20:00] VITALS: BP 159/82; PULSE 88; RESP 16; TEMP 36.6; O2SAT 95
[2025-01-19] MEDS: oxyCODONE HCl ER 10 MG TAB.ER.12H PO (22:00)
--- NOTE | 2025-01-19 22:09 | PC.NURSE ---
Pt medicated per [facility] Plan of care ongoing.
--- NOTE | 2025-01-19 22:53 | P.CONHOSP_ITS ---
History of Present Illness Data of Consult Service Date: 01/19/25 Requesting physician: Suzi Rice Primary Care Provider: Adrianne Fletcher MD [facility] Reason for consult: medical management Patient is a 64-year-old female with a past medical history significant for tobacco use disorder, anxiety, class 1 obesity, hypertension and hyperlipidemia, admitted by Orthopedics due to right ankle fracture. The patient reports that she was kicking something down the stairs while carrying a laundry basket and slipped ultimately fracture your right ankle. Plan is for patient to have surgery tomorrow. She is in no acute medical concerns including chest pain, shortness of breath, nausea, vomiting, abdominal pain, headache or URI symptoms. She is only reporting right ankle pain at this time. Medical history and medications were reviewed with the patient. Review of Systems 2 Constitutional: Constitutional: Denies chills, Denies fatigue, Denies fever(s) and Denies headache(s) Eyes: Eyes: Denies change in vision ENT: Denies headache(s), Denies nasal congestion and Denies sore throat Cardiovascular: Cardiovascular: Denies chest pain, Denies rapid heart rate, Denies leg edema, Denies lightheadedness and Denies dyspnea Respiratory: Respiratory: Denies chest congestion, Denies cough, Denies dyspnea and Denies wheezing Gastrointestinal: Gastrointestinal: Denies abdominal pain, Denies diarrhea, Denies nausea and Denies vomiting Genitourinary: Genitourinary: Denies difficulty voiding, Denies dysuria and Denies urinary urgency Musculoskeletal: Musculoskeletal: Reports as per HPI Integumentary/Breasts: Skin/Breast: Denies rash Neurologic: Denies confusion and Denies headache(s) Psychiatric: Psychiatric: Denies confusion Endocrine: Endocrine: Denies fatigue Hematologic/Lymphatic: Hematologic/Lymphatic: Denies easy bleeding Allergic/Immunologic: Allergic/Immunologic: Denies wheezing [facility] Medical History History of hemorrhoids History of anxiety disorder History of adenomatous polyp of colon Obesity (BMI 30.0-34.9) Not ready to quit smoking Mixed dyslipidemia Essential hypertension History of lipoma Functional capacity: independent ambulation Family History Father History of hypertension Hx of hyperlipidemia History of cardiac arrhythmia Alzheimer disease Mother Diabetes Surgical History History of colonoscopy with polypectomy Hx of dilation and curettage Hx of breast biopsy Hx laparoscopic cholecystectomy Social History Household Members: Spouse and Family Housing: House Are you a primary home care music therapist to a significant other at home: No Do you presently have visiting nurse or other home services: No Alcohol intake: current Alcohol intake frequency: holidays/special occasions only Patient Tobacco Use Status: Current everyday Tobacco user Tobacco use type: Cigarette Cigarettes Per Day: 5 Years Smoked: 20 Smoked in Last 30 Days: Yes e-Cigarette/Vaping Use: Never Used Patient Interested in Nicotine Replacement: Yes Patient Given Instructions on How to Stop Smoking: Yes Date Education Initiated: 01/19/25 Have you been hit, kicked, punched, or otherwise hurt by someone within the past year? If so, by whom?: No Do you feel safe in your current relationship?: Yes Is there a partner from a previous relationship who is making you feel unsafe now?: No Advance Directives: No Advance Directives Information Provided: Yes Do you have a plan to hurt others: No Plan Recently lost weight without trying: No Nutrition Risks: No Nutritional Risk Patient : No : No service: No Current occupational status: employed Cognitive needs: No Hearing needs: No Vision needs: Yes Narrative: Smokes 4-5 cigarettes per day, 1 glass of wine daily, no drug use Meds Allergies Allergy/AdvReac Type Severity Reaction Status Date / Time No Known Allergies (No Known Allergy Verified 01/19/25 11:21 Allergies*) Active Medications: Current Medications Acetaminophen (Acetaminophen 325 Mg Tablet) 650 mg PO Q6H PRN PRN Reason: Pain, Mild 1-3,fever,headache Last Admin: 01/19/25 14:40 Dose: 650 mg Calcium Carbonate (Calcium Carbonate 750 Mg Tab.Chew) 750 mg PO Q4H PRN PRN Reason: Heartburn Celecoxib (Celecoxib 200 Mg Capsule) 200 mg PO BID [facility] Last Admin: 01/19/25 22:00 Dose: 200 mg Docusate Sodium (Docusate Sodium 100 Mg Capsule) 100 mg PO BID [facility] Last Admin: 01/19/25 22:00 Dose: 100 mg Hydromorphone HCl (Hydromorphone Hcl 1 Mg/Ml Syringe) 0.25 mg IVPUSH Q4H PRN; Protocol PRN Reason: Pain, Severe (Pain Scale 7-10) Last Admin: 01/19/25 19:41 Dose: 0.25 mg Lactated Ringer's (Lr) 1,000 mls @ 100 mls/hr IVCONT .Q10H [facility] Last Admin: 01/19/25 14:37 Dose: 100 mls/hr Cefazolin Sodium/Dextrose (Ancef) 2 gm in 50 mls @ 100 mls/hr IV PREOP ONE Stop: 01/20/25 13:45 Magnesium Hydroxide (Milk Of Magnesia 30 Ml Oral.Susp) 30 ml PO DAILY PRN PRN Reason: Constipation Melatonin (Melatonin 3 Mg Tablet) 6 mg PO BEDTIME PRN PRN Reason: Insomnia Ondansetron HCl (Ondansetron Hcl 4 Mg/2 Ml Vial) 4 mg IVPUSH Q8H PRN PRN Reason: Nausea and Vomiting Oxycodone HCl (Oxycodone Hcl Immed Release 5 Mg Tablet) 5 mg PO Q4H PRN PRN Reason: Pain, Moderate(Pain Scale 4-6) Last Admin: 01/19/25 14:40 Dose: 5 mg Oxycodone HCl (Oxycodone Hcl Er 10 Mg Tab.Er.12h) 10 mg PO BID [facility] Last Admin: 01/19/25 22:00 Dose: 10 mg Sodium Chloride (0.9 % Sodium Chloride Flush 3 Ml Syringe) 3 ml IVFLUSH QSHIFT [facility] Last Admin: 01/19/25 17:06 Dose: Not Given Home Medications ?Medication ?Instructions ?Recorded ?Confirmed ?Last Taken ?Type Prevagen Regular Strength 1 cap PO DAILY 01/19/2505/1101/18/25 History multivitamin with minerals-folic 1 tab PO DAILY 01/19/25 01/18/25 History acid 200 mcg chewable tablet (Multivitamin Gummies) soluble corn fiber-inulin 1.7 gram 1 tab PO DAILY 05/1101/19/25 01/18/25 History chewable tablet (Metamucil (inulin-corn fiber)) Physical Exam 2 Vital Signs and Narrative: Vital Signs: Last Vital Signs Temp 97.8 F 01/19/25 20:00 Pulse 88 01/19/25 20:00 Resp 16 01/19/25 20:00 BP 159/82 H 01/19/25 20:00 Pulse Ox 95 01/19/25 20:00 O2 Del Method Room Air 01/19/25 20:00 BMI result Body Mass Index 33.1 General: AOx3, no acute distress Resp: CTA bilaterally CVS: S1, S2, RRR GI: +BS, NT, no distention Skin: Warm, dry Neuro: Cranial nerves II-XII grossly intact bilaterally. Motor grossly intact bilaterally Extremities: No pitting edema. Soft cast right ankle, sensation intact Psych: Appropriate affect Const: General: No confusion Orientation/consciousness: No confusion Neuro: General: No confusion Results Labs 01/19/25 12:36 01/19/25 12:36 Labs: Laboratory Results - last 24 hr 01/19/25 12:36 MCV 91.4 MCH 30.7 MCHC 33.6 RDW 12.5 Plt Count 348 MPV 9.6 Immature Gran % (Auto) 0.4 Neut % (Auto) 70.0 Lymph % (Auto) 20.0 [place] % (Auto) 7.2 Eos % (Auto) 1.6 Baso % (Auto) 0.8 Lymph # (Auto) 2.6 [place] # (Auto) 0.9 Eos # (Auto) 0.2 Baso # (Auto) 0.1 Abs Immat Gran (auto) 0.05 H Absolute Neuts (auto) 9.0 H Absolute Nucleated RBC 0.000 Nucleated RBC % (auto) 0.0 PT 12.6 INR 1.0 Anion Gap 11 L Estim Creat Clear Calc 105.6 Estimated GFR > 60 Random Glucose 119 H Calcium 9.2 D Total Bilirubin 0.3 Direct Bilirubin 0.1 AST 33 H ALT 29 Alkaline Phosphatase 81 Total Protein 7.1 Albumin 4.0 Lipase 149 H Blood Type B Negative Antibody Screen NEGATIVE Imaging Radiologist's Impressions: Impressions Ankle X-Ray 01/19/25 11:50 IMPRESSION: Ankle fracture with dislocation and angular deformity. Electronically signed by: Dar Esquivel MD 01/19/2025 01:02 PM EST Ankle X-Ray 01/19/25 12:10 IMPRESSION: Persistent angular deformity of the fibula and posterior dislocation of talus relative to the tibial plafond. Electronically signed by: Dar Esquivel MD 01/19/2025 01:06 PM [facility] Assessment and Plan (1) Dislocation of ankle, right, closed: Status: Acute (2) Fracture of ankle, right, closed: Status: Acute Plan Patient is a 64-year-old female with a past medical history significant for tobacco use disorder, anxiety, class 1 obesity, hypertension and hyperlipidemia, admitted by Orthopedics due to right ankle fracture. Right ankle fracture/dislocation - plan per ortho - NPO - pain management Tobacco use disorder - smoking cessation encouraged - nicotine replacement Class 1 obesity - BMI 33.1 - weight loss encouraged Hypertension - no home meds, continue to monitor HLD - no home meds Thank you for allowing me to participate in the pt's care. Signing off. Please contact the medical team if any questions or concerns.
--- NOTE | 2025-01-19 23:25 | PC.NURSE ---
This RN not included in tiger tx regarding pt having a room. RN notified by charge at [phone] regarding room Plan of care ongoing.
--- NOTE | 2025-01-19 23:56 | MHC.EDTECH ---
Belongings list did not appear on worklist. T/w added and it appeared and looks as though t/w filled out but did not. Patient belongings form previously completed by charter driverSury Peña at 1430.
[2025-01-20] VITALS (16 sets, daily range): BP systolic 117–156; BP diastolic 58–89; PULSE 74–91; RESP 13–20; TEMP 36–36.9; O2SAT 94–97; BMI 33.7
[2025-01-20] MEDS: Lactated Ringers 1,000 ML 100 ML IVCONT (00:20)
[2025-01-20 07:06] LABS: MANUAL DIFF FLAG NO
[2025-01-20 07:23] LABS: Hematocrit 40.7 % (37.0-47.0); Hemoglobin 13.2 g/dl (12.0-16.0); Imm Gran Abs Auto 0.03 X10*3/uL (0.00-0.03); Imm Gran Pct Auto 0.3 % (0.0-0.4); Lymphocytes Absolute Auto 3.3 X10*3/uL (1.2-4.9); Mean Corpuscular HGB Conc 32.4 g/dl (31.0-35.0); Mean Corpuscular Hemoglobin 30.2 pg (27.0-33.0); Mean Corpuscular Volume 93.1 fL (80.0-98.0); NRBC Abs Auto 0.000 X10*3/uL (0.0-0.012); NRBC Pct Auto 0.0 /100WBC (0.0-0.2); Platelet Count 337 X10*3/uL (160-400); Red Blood Count 4.37 X10*6/uL (4.20-5.50); White Blood Count 9.1 X10*3/uL (4.8-10.8)
[2025-01-20 07:36] LABS: Anion Gap 12 (12-20); Blood Urea Nitrogen 21 mg/dL (9-16); Calcium 8.8 mg/dL (8.4-10.2); Carbon Dioxide 23 mmol/L (22-29); Chloride 109 mmol/L (96-108); Creatinine Clr Calc Pharmacy 114.6; Estimated Glomerular Filt Rate > 60; Potassium 4.0 mmol/L (3.3-5.1); Sodium 140 mmol/L (135-145)
[2025-01-20] MEDS: oxyCODONE HCl ER 10 MG TAB.ER.12H PO ×2 (08:04→20:40)
--- NOTE | 2025-01-20 08:10 | P.PNOP_ITS ---
Subjective Subjective Date of Service: 01/20/25 Interval history: 64-year-old female admission day 1 for right ankle bimalleolar fracture and dislocation Multiple reduction attempts in the ED, no successful reductions, as patient continues to self dislocate Resting in bed this morning, reports throbbing and burning pain in the right ankle Denies numbness or tingling in the right lower extremity Patient reports that she has been elevating the right foot and ankle at all times No other acute complaints or concerns at this time Physical Exam Vital Signs: Vital Signs: Last Vital Signs Temp 97.8 F 01/20/25 04:00 Pulse 79 01/20/25 04:00 Resp 18 01/20/25 04:00 BP 117/69 01/20/25 04:00 Pulse Ox 96 01/20/25 04:00 O2 Del Method Room Air 01/20/25 04:00 BMI result Body Mass Index 33.7 Const: General: cooperative, healthy appearing and no acute distress Resp: Effort & Inspection: normal respiratory effort and able to speak in complete sentences Extrem: Other: Right ankle placed in splint. Able to move all digits. Reports sensation is intact. Capillary refill is brisk. Psych: Appearance: grossly normal Mental Status: mental status grossly normal Attitude: cooperative Procedures Date of Service Date of Service: 01/20/25 Progress Note: A&P Assessment and plan (1) Fracture of ankle, right, closed: Status: Acute (2) Dislocation of ankle, right, closed: Status: Acute Plan Continue pain management Per Dr. Lopes, splint is not taken down at this time Continue NPO status for external fixation of right ankle fracture dislocation versus ORIF with Dr. Lopes later today Based off of clinical exam findings and imaging the patient does likely have a bimalleolar right ankle fracture and dislocation which would benefit from surgical intervention. The patient does understand nonsurgical intervention would result in significant impairment of the right ankle, and likely inability to weightbear effectively. Given the patient's activity level and desire to continue remaining active, it would be recommended to pursue surgical i ntervention. We discussed the procedure in detail along with the risks, benefits, and alternatives. Risks including but not limited to infection, injury to surrounding nerves, soft tissue structures, and bone, small and large vessels, stiffness, fracture, DVT/PE, and the need for further surgery, along with intraoperative complications including but not limited to . We discussed postoperative recovery which includes nonweightbearing on the right ankle for at least 6 weeks, followed by limited weight-bearing in a boot and physical therapy to work on range of motion of the right ankle. The patient expresses understanding of this and would like to proceed with external fixation versus open reduction and internal fixation of right ankle bimalleolar fracture dislocation. The patient will be booked accordingly. Time Spent With Patient Time: Total time managing care of this patient today ____ minutes. Quality Stroke Does the patient have a stroke diagnosis?: No VTE Prior VTE?: No VTE Risk Level:: Surgical - high VTE Device Contraindication: N/A - Device Ordered VTE Drug Contraindication: Treatment Not Indicated
[2025-01-20] MEDS: Lactated Ringers 1,000 ML 50 ML IVCONT (11:31)
--- NOTE | 2025-01-20 11:50 | MHC.SHP ---
Pre-Procedural Eval Section A - 24 Hr Update-Section A only Date of Service: 01/20/25 The patient is an INPATIENT: Yes Changes since office visit: No Cold of Flu in the past 2 weeks, No New Medical Problems, No Changes in Medication and No Patient answered all questions The patient has been examined within 24 hours of the surgical procedure. The History & Physical has been completed within 30 days and I have reviewed it.: Yes Section B - Complete if H&P > 30 days Chief Complaint: right ankle fracture dislocation Allergies: Allergies Allergy/AdvReac Type Severity Reaction Status Date / Time No Known Allergies (No Known Allergy Verified 01/19/25 11:21 Allergies*) Plan I have reviewed the history and physical and performed a pertinent physical examination on my patient. No changes have occurred unless specified. Time Spent With Patient Time: Total time managing care of this patient today ____ minutes.
--- NOTE | 2025-01-20 12:27 | HO.ANESPROP2 ---
HPI - Anesthesia Eval Consult details Narrative: 64 yo F presenting for right ankle closed reduction vs ex-fix vs ORIF PMF Active Problems Active Problems: All Active Problems (Updated 01/20/25 @ 11:15 by Pat Garibay RN) Dislocation of ankle, right, closed (Acute) Fracture of ankle, right, closed (Acute) Ankle fracture, left (Acute) History of hemorrhoids (Acute) History of adenomatous polyp of colon (Acute) Obesity (BMI 30.0-34.9) (Acute) Not ready to quit smoking (Acute) Mixed dyslipidemia (Acute) Essential hypertension (Acute) Past Medical History Medical History History of hemorrhoids History of anxiety disorder History of adenomatous polyp of colon Obesity (BMI 30.0-34.9) Not ready to quit smoking Mixed dyslipidemia Essential hypertension History of lipoma Functional capacity: independent ambulation Family History Family History Father History of hypertension Hx of hyperlipidemia History of cardiac arrhythmia Alzheimer disease Mother Diabetes Family history of problems with anesthesia: No Surgical History Surgical History History of colonoscopy with polypectomy Hx of dilation and curettage Hx of breast biopsy Hx laparoscopic cholecystectomy History of Problems with Anesthesia: No Social History Social History Household Members: Spouse and Family Housing: House Are you a primary childcare center director to a significant other at home: No Do you presently have visiting nurse or other home services: No Alcohol intake: current Alcohol intake frequency: holidays/special occasions only Patient Tobacco Use Status: Current everyday Tobacco user Tobacco use type: Cigarette Cigarettes Per Day: 5 Years Smoked: 20 e-Cigarette/Vaping Use: Never Used service: No Current occupational status: employed Cognitive needs: No Hearing needs: No Vision needs: Yes Meds Allergies Allergy/AdvReac Type Severity Reaction Status Date / Time No Known Allergies (No Known Allergy Verified 01/19/25 11:21 Allergies*) Active Medications: Current Medications Acetaminophen (Acetaminophen 325 Mg Tablet) 650 mg PO Q6H PRN PRN Reason: Pain, Mild 1-3,fever,headache Last Admin: 01/19/25 14:40 Dose: 650 mg Calcium Carbonate (Calcium Carbonate 750 Mg Tab.Chew) 750 mg PO Q4H PRN PRN Reason: Heartburn Celecoxib (Celecoxib 200 Mg Capsule) 200 mg PO BID [facility] Last Admin: 01/20/25 08:05 Dose: Not Given Docusate Sodium (Docusate Sodium 100 Mg Capsule) 100 mg PO BID [facility] Last Admin: 01/20/25 08:04 Dose: 100 mg Hydromorphone HCl (Hydromorphone Hcl 1 Mg/Ml Syringe) 0.25 mg IVPUSH Q4H PRN; Protocol PRN Reason: Pain, Severe (Pain Scale 7-10) Last Admin: 01/20/25 06:40 Dose: 0.25 mg Lactated Ringer's (Lr) 1,000 mls @ 100 mls/hr IVCONT .Q10H [facility] Last Infusion: 01/20/25 11:08 Dose: Infused Cefazolin Sodium/Dextrose (Ancef) 2 gm in 50 mls @ 100 mls/hr IV PREOP ONE Stop: 01/20/25 13:45 Lactated Ringer's (Lr) 1,000 mls @ 50 mls/hr IVCONT .Q20H [facility] Last Admin: 01/20/25 11:31 Dose: 50 mls/hr Magnesium Hydroxide (Milk Of Magnesia 30 Ml Oral.Susp) 30 ml PO DAILY PRN PRN Reason: Constipation Melatonin (Melatonin 3 Mg Tablet) 6 mg PO BEDTIME PRN PRN Reason: Insomnia Ondansetron HCl (Ondansetron Hcl 4 Mg/2 Ml Vial) 4 mg IVPUSH Q8H PRN PRN Reason: Nausea and Vomiting Oxycodone HCl (Oxycodone Hcl Immed Release 5 Mg Tablet) 5 mg PO Q4H PRN PRN Reason: Pain, Moderate(Pain Scale 4-6) Last Admin: 01/19/25 14:40 Dose: 5 mg Oxycodone HCl (Oxycodone Hcl Er 10 Mg Tab.Er.12h) 10 mg PO BID [facility] Last Admin: 01/20/25 08:04 Dose: 10 mg Sodium Chloride (0.9 % Sodium Chloride Flush 3 Ml Syringe) 3 ml IVFLUSH QSHIFT [facility] Last Admin: 01/20/25 09:56 Dose: Not Given Home Medications ?Medication ?Instructions ?Recorded ?Confirmed ?Last Taken ?Type Prevagen Regular Strength 1 cap PO DAILY 01/19/25 01/19/25 01/18/25 History multivitamin with minerals-folic 1 tab PO DAILY 01/19/25 01/19/25 01/18/25 History acid 200 mcg chewable tablet (Multivitamin Gummies) soluble corn fiber-inulin 1.7 gram 1 tab PO DAILY 01/19/25 01/19/25 01/18/25 History chewable tablet (Metamucil (inulin-corn fiber)) Exam Exam Date and Time: 01/20/25 1145 Height,Weight and Vital Signs: Height 5 ft 3 in Weight 86.3 kg Last Vital Signs Temp 98.4 F 01/20/25 11:23 Pulse 74 01/20/25 11:23 Resp 15 01/20/25 11:23 BP 121/62 01/20/25 11:23 Pulse Ox 96 01/20/25 11:23 O2 Del Method Room Air 01/20/25 11:23 Pertinent Lab Results Pertinent Lab Results: Laboratory Tests 01/19/25 01/20/25 12:36 06:40 WBC 12.8 H 9.1 RBC 4.76 4.37 Hgb 14.6 13.2 Hct 43.5 40.7 MCV 91.4 93.1 MCH 30.7 30.2 MCHC 33.6 32.4 RDW 12.5 12.7 Plt Count 348 337 MPV 9.6 10.1 Immature Gran % (Auto) 0.4 0.3 Neut % (Auto) 70.0 49.1 Lymph % (Auto) 20.0 35.7 [place] % (Auto) 7.2 10.6 Eos % (Auto) 1.6 3.5 Baso % (Auto) 0.8 0.8 Lymph # (Auto) 2.6 3.3 [place] # (Auto) 0.9 1.0 Eos # (Auto) 0.2 0.3 Baso # (Auto) 0.1 0.1 Abs Immat Gran (auto) 0.05 H 0.03 Absolute Neuts (auto) 9.0 H 4.5 Absolute Nucleated RBC 0.000 0.000 Nucleated RBC % (auto) 0.0 0.0 PT 12.6 INR 1.0 Sodium 138 140 Potassium 4.9 4.0 Chloride 112 H 109 H Carbon Dioxide 20 L 23 Anion Gap 11 L 12 BUN 22 H 21 H Creatinine 0.57 0.53 Estim Creat Clear Calc 105.6 114.6 Estimated GFR > 60 > 60 Random Glucose 119 H Fasting Glucose 100 H Calcium 9.2 D 8.8 Total Bilirubin 0.3 Direct Bilirubin 0.1 AST 33 H ALT 29 Alkaline Phosphatase 81 Total Protein 7.1 Albumin 4.0 Lipase 149 H Blood Type B Negative Antibody Screen NEGATIVE Airway Mallampati Class: II TM Dist: <=3cm Neck ROM: Full Loose/Missing/Broken Teeth: No (patient denies any loose or broken teeth) Heart: S1S2 Lungs: CTAB Assessment and Plan Assessment Anesthesia Assessment: Anesthesia Plan Discussed and Chart Reviewed Final Anesthetic Review Family History of Problems with Anesthesia: No History of Problems with Anesthesia: No NPO: Yes ASA Class: II Final Preanesthetic Review: No Changes in Pt Med Stat, Meds/Allgs Chart Reviewed, Consent Obtained/Reviewed and Anes Risks/Benef Reviewed Patient Risk: Low Procedure Risk: Low Anesthetic Plan Anesthetic Plan: GA and Agree w/ Assess. and Plan Disposition: Standard PACU
[2025-01-20] MEDS: Nicotine 14 MG PATCH.TD24 TRANSDERMA (14:31)
[2025-01-20] MEDS: oxyCODONE HCl Immed Release 5 MG TABLET PO ×2 (14:34→20:41)
[2025-01-20] MEDS: 0.9 % Sodium Chloride Flush 3 ML SYRINGE IVFLUSH ×2 (14:35→20:42)
--- NOTE | 2025-01-20 14:46 | PC.NURSE ---
Per CARMEN MÁRQUEZ RLE.
--- NOTE | 2025-01-20 16:27 | MHC.CM.PN ---
CM ATTEMPTED TO MEET WITH PT X2, PT ON THE PHONE. CM WILL REVISIT
[2025-01-21 03:05] VITALS: BP 142/81; PULSE 91; RESP 14; TEMP 36.2; O2SAT 97
[2025-01-21 06:44] LABS: MANUAL DIFF FLAG NO
[2025-01-21 06:53] LABS: Hematocrit 41.6 % (37.0-47.0); Hemoglobin 13.5 g/dl (12.0-16.0); Imm Gran Abs Auto 0.05 X10*3/uL (0.00-0.03); Imm Gran Pct Auto 0.4 % (0.0-0.4); Lymphocytes Absolute Auto 2.3 X10*3/uL (1.2-4.9); Mean Corpuscular HGB Conc 32.5 g/dl (31.0-35.0); Mean Corpuscular Hemoglobin 30.8 pg (27.0-33.0); Mean Corpuscular Volume 95.0 fL (80.0-98.0); NRBC Abs Auto 0.000 X10*3/uL (0.0-0.012); NRBC Pct Auto 0.0 /100WBC (0.0-0.2); Platelet Count 335 X10*3/uL (160-400); Red Blood Count 4.38 X10*6/uL (4.20-5.50); White Blood Count 11.4 X10*3/uL (4.8-10.8)
[2025-01-21 07:07] LABS: Anion Gap 11 (12-20); Blood Urea Nitrogen 15 mg/dL (9-16); Calcium 9.3 mg/dL (8.4-10.2); Carbon Dioxide 26 mmol/L (22-29); Chloride 108 mmol/L (96-108); Creatinine Clr Calc Pharmacy 112.5; Estimated Glomerular Filt Rate > 60; Potassium 4.2 mmol/L (3.3-5.1); Sodium 141 mmol/L (135-145)
[2025-01-21] MEDS: oxyCODONE HCl ER 10 MG TAB.ER.12H PO (07:28)
[2025-01-21] MEDS: Nicotine 14 MG PATCH.TD24 TRANSDERMA (07:29)
[2025-01-21] MEDS: 0.9 % Sodium Chloride Flush 3 ML SYRINGE IVFLUSH (07:29)
[2025-01-21 07:32] VITALS: BP 142/86; PULSE 85; RESP 16; TEMP 36.2; O2SAT 98
--- NOTE | 2025-01-21 08:28 | P.PNOP_ITS ---
Subjective Subjective Date of Service: 01/21/25 Interval history: 64-year-old female postop day 1 for closed reduction of right ankle under anesthesia status post right ankle trimalleolar fracture dislocation Patient resting comfortably in bed this morning, reports pain is much better jenise n it was prior to reduction Denies numbness or tingling in the right lower extremity Patient reports that she has been elevating the right foot and ankle at all times No other acute complaints or concerns at this time Physical Exam Vital Signs: Vital Signs: Last Vital Signs Temp 97.1 F 01/21/25 07:32 Pulse 85 01/21/25 07:32 Resp 16 01/21/25 07:32 BP 142/86 H 01/21/25 07:32 Pulse Ox 98 01/21/25 07:32 O2 Del Method Room Air 01/21/25 07:32 BMI result Body Mass Index 33.7 Const: General: cooperative, healthy appearing and no acute distress Resp: Effort & Inspection: normal respiratory effort and able to speak in complete sentences Extrem: Other: Right ankle placed in splint. Able to move all digits. Reports sensation is intact. Capillary refill is brisk. Psych: Appearance: grossly normal Mental Status: mental status grossly normal Attitude: cooperative Procedures Date of Service Date of Service: 01/21/25 Progress Note: A&P Assessment and plan (1) Fracture of ankle, right, closed: Status: Acute (2) Dislocation of ankle, right, closed: Status: Acute Plan Continue pain management Plan for discharge today and follow-up in our office on Friday for discussion of definitive management of trimalleolar fracture of right ankle Nonweightbearing on right lower extremity Plan for surgery next week Patient understands this and is amenable to this plan Time Spent With Patient Time: Total time managing care of this patient today ____ minutes. Quality Stroke Does the patient have a stroke diagnosis?: No VTE Prior VTE?: No VTE Risk Level:: Surgical - high VTE Device Contraindication: N/A - Device Ordered VTE Drug Contraindication: Treatment Not Indicated
--- NOTE | 2025-01-21 08:31 | PM.DS ---
DS: Providers Provider Date of Service: 01/20/25 Date of admission: 01/19/25 13:29 Date of discharge: 01/21/25 Primary care physician: Adrianne Fletcher MD Consults: 01/19/25 14:19 Consult to Hospitalist Routine Comment: Consulting Provider: [facility] Reason For Exam: routine medical management DS: Diagnosis Discharge Diagnosis (1) Fracture of ankle, right, closed: Status: Acute (2) Dislocation of ankle, right, closed: Status: Acute DS: Summary Hospital Course Hospital Course: The patient underwent a successful closed reduction of right ankle trimalleolar fracture dislocation on , was transferred to PACU and then to the floor to recover. During their stay, their vitals were stable, afebrile at 97.1. Labs were unremarkable, H/H 13.5/41.6. Patient is to be nonweightbearing on the right lower extremity until follow-up, likely to be for a total of 6 weeks after definitive surgical intervention New splint was placed in operating room, the splint should remain clean, dry, intact at all times until surgery. No showering. Use rolling walker or crutches for ambulation. The plan is to be discharged Status at Discharge Cognitive/behavioral status at discharge: Stable for discharge Time Attestation Discharge Coordination Time (in mins): 30 Quality: Safe Use of Opioids Does Pt have an Active Cancer Diagnosis on the Problem List?: No Quality: Stroke Does the patient have a stroke diagnosis?: No Physical Exam Vital Signs: Vital Signs: Last Vital Signs Temp 97.1 F 01/21/25 07:32 Pulse 85 01/21/25 07:32 Resp 16 01/21/25 07:32 BP 142/86 H 01/21/25 07:32 Pulse Ox 98 01/21/25 07:32 O2 Del Method Room Air 01/21/25 07:32 BMI result Body Mass Index 33.7 Const: General: cooperative, healthy appearing and no acute distress Resp: Effort & Inspection: normal respiratory effort and able to speak in complete sentences Extrem: Other: Right ankle placed in splint. Able to move all digits. Reports sensation is intact. Capillary refill is brisk. Psych: Appearance: grossly normal Mental Status: mental status grossly normal Attitude: cooperative DS: Data Data Completed and Pending Labs on day of discharge: Laboratory Results - last 24 hr 01/21/25 05:57 WBC 11.4 H RBC 4.38 Hgb 13.5 Hct 41.6 MCV 95.0 MCH 30.8 MCHC 32.5 RDW 12.4 Plt Count 335 MPV 10.2 Immature Gran % (Auto) 0.4 Neut % (Auto) 69.1 Lymph % (Auto) 20.0 [place] % (Auto) 9.1 Eos % (Auto) 1.0 Baso % (Auto) 0.4 Lymph # (Auto) 2.3 [place] # (Auto) 1.0 Eos # (Auto) 0.1 Baso # (Auto) 0.0 Abs Immat Gran (auto) 0.05 H Absolute Neuts (auto) 7.9 Absolute Nucleated RBC 0.000 Nucleated RBC % (auto) 0.0 Sodium 141 Potassium 4.2 Chloride 108 Carbon Dioxide 26 Anion Gap 11 L BUN 15 Creatinine 0.54 Estim Creat Clear Calc 112.5 Estimated GFR > 60 Fasting Glucose 115 H Calcium 9.3 Discharge Plan Discharge Anticipated Discharge Date/Time: 01/21/25 08:37 Patient Disposition: Home, Self-Care Discharge Diagnosis: Trimalleolar fracture of the right ankle Referrals: Adrianne Fletcher MD [Primary Care Provider, Internal Medicine] - 1 Week Discharge Medications: New oxycodone 5 mg Tablet 5 mg PO Q4H PRN (Reason: Pain, Moderate(Pain Scale 4-6)) Qty: 42 0RF Rx Instructions: Partial Fill upon patient request. celecoxib 200 mg Capsule 200 mg PO BID 7 Days Qty: 14 0RF docusate sodium 100 mg Capsule 100 mg PO BID 7 Days Qty: 14 0RF acetaminophen 325 mg Tablet 650 mg PO Q6H PRN (Reason: Pain, Mild 1-3,Fever,Headache) Qty: 60 0RF Continued Metamucil (inulin-corn fiber) 1.7 gram Tablet,Chewable 1 tab PO DAILY multivit with min-folic acid [Multivitamin Gummies] 200 mcg Tablet,Chewable 1 tab PO DAILY Prevagen Regular Strength capsule 1 cap PO DAILY Discharge Orders: Discharge Order (Routine); Ordered 01/21/25 Ordered By: Dario Gant Stand Alone Forms: Patient Portal Discharge page Print Language: Tanzanian Care Plan Goals: Stabilize fracture dislocation of right ankle until definitive operative intervention next week Health Concerns: Right ankle trimalleolar fracture dislocation status post reduction Plan of Treatment: Nonweightbearing on right lower extremity Keep splint clean, dry, intact at all times No showering Follow-up in our office on 01/24/2025 at 11:00 with Suzi Rice to discuss further definitive intervention for the right ankle fracture Use crutches or rolling kneeling walker as tolerated Assessment: Stable for discharge
--- NOTE | 2025-01-21 08:41 | HO.POSTANES ---
Post Anesthesia Evaluation Post Anesthesia Evaluation Date of Service: 01/21/25 Vital Signs: Vital Signs Temp Pulse Resp BP Pulse Ox O2 Del Method 01/21/25 07:32 97.1 F 85 16 142/86 H 98 Room Air 01/21/25 03:05 97.1 F 91 14 142/81 H 97 Room Air Anesthesia: General Mental Status: Awake Pain Control: Satisfactory Nausea/Vomiting: None Hydration: Adequate Anesthesia-Related Issues: No Anes. Related Issues
--- NOTE | 2025-01-21 09:21 | MHC.CM.PN ---
pt dcd home self care
--- NOTE | 2025-01-25 07:42 | P.OP_ITS ---
Operative Note Operative Note Date of Service: 01/20/25 Narrative: Date of Service: 01/20/25 Pre-op diagnosis: Closed fracture/dislocation left ankle Post-op diagnosis: same Procedure: Closed reduction left ankle Implants: none Surgeon: Shahzad Lopes MD Anesthesia: MAC Was an [employer] Attendant used for this Procedure?: No Estimated blood loss (mL): 0 IV fluids (mL): 50 Pathology: none sent Condition: stable Disposition: PACU Patient was brought to the operating room and placed supine on the surgical table. A time out was called to identify proper site, proper procedure and proper surgeon. I began by dorsiflexing the right ankle and the joint was reduced without difficulty. The skin was swollen and the decision was made to splint and delay definitive fixation until the soft tissues were ready. Biplanar fluoro confirmed fracture reduction and joint reduction. A well-padded posterior splint was placed and patient was brought to the recovery room is stable condition. There were no known complications.
== END 2025-01-21 10:49 | disposition home or self-care (01) | DRG 342 ==
LOC: HO.ED 12:26 → HO.EDOVER 14:38 → HO.S3 19:36
PROVIDERS: Orthopaedic Surgery; Admitting Provider Physician Assistant; Emergency Provider Emergency Medicine; PCP Internal Medicine; Visit Provider Physician Assistant
PROC: 0SSGXZZ Reposition Left Ankle Joint, External Approach (ICD-10-PCS; principal; 2025-01-20 12:00)
DX: S82.851A Displaced trimalleolar fracture of right lower leg, initial encounter for closed fracture (principal); E66.811 Obesity, class 1; E78.5 Hyperlipidemia, unspecified; I10 Essential (primary) hypertension; Z68.33 Body mass index [BMI] 33.0-33.9, adult; F17.210 Nicotine dependence, cigarettes, uncomplicated; W10.9XXA Fall (on) (from) unspecified stairs and steps, initial encounter; Z71.6 Tobacco abuse counseling; Z79.899 Other long term (current) drug therapy
CPT/HCPCS: 36415; 73610; 80048; 80076; 83690; 85025; 85610; 86850; 86900; 86901; 99285; J0690; J1100; J1171; J1885; J2003; J2250; J2405; J2795; J3010; J7120

== ENCOUNTER → 2025-01-19 11:29 | Outpatient (BNV) | payer BC, SELFPAY | PROVIDERS: Emergency Provider Emergency Medicine; PCP Internal Medicine; Visit Provider Radiology Diagnostic Radiology | DX: M25.571 Pain in right ankle and joints of right foot (principal) | CPT/HCPCS: 73610 ==

== ENCOUNTER → 2025-01-19 11:42 | Outpatient (BNV) | payer BC, SELFPAY | PROVIDERS: Emergency Provider Emergency Medicine; PCP Internal Medicine; Visit Provider Physician Assistant | DX: S82.891A Other fracture of right lower leg, initial encounter for closed fracture (principal); S93.04XA Dislocation of right ankle joint, initial encounter | CPT/HCPCS: 99233 ==

== ENCOUNTER → 2025-01-19 13:29 | Outpatient (BNV) | payer BC, SELFPAY | PROVIDERS: Admitting Provider Physician Assistant; Emergency Provider Emergency Medicine; PCP Internal Medicine; Visit Provider Physician Assistant | DX: S93.04XA Dislocation of right ankle joint, initial encounter (principal); S82.891A Other fracture of right lower leg, initial encounter for closed fracture | CPT/HCPCS: 99253 ==

== ENCOUNTER 2025-01-24 07:17 | Outpatient (REF) | payer BC, SELFPAY ==
--- NOTE | ~2025-01-24 | XR_ITS ---
EXAMINATION: XR ANKLE, RIGHT CLINICAL INFORMATION: M25.579 - Pain in unspecified ankle and joints of unspecified foot COMPARISON: 01/19/2025. Fluoroscopy 01/20/2025. TECHNIQUE: AP, lateral, and mortise views of the right ankle. FINDINGS: Casting material overlies the right ankle, obscuring fine bony detail. There has been interval closed reduction of the trimalleolar fracture dislocation of the right ankle. There is now markedly improved alignment of the ankle joint. Persistent mild displacement of the medial malleolus is present. There is approximately one shaft length of posterolateral displacement of the lateral malleolar fracture fragment. Angulation has resolved. There is minimal displacement of the posterior malleolus. There is persistent disruption of the ankle mortise. The talar dome appears intact. The subtalar joints appear normal. There is a moderate to large sized plantar calcaneal spur. There is persistent soft tissue swelling with ankle joint effusion. Soft tissue swelling of the forefoot dorsally also noted. XR/XR ankle RT min 3V IMPRESSION: Closed reduction of the trimalleolar fracture dislocation of the right ankle with markedly improved alignment. Electronically signed by: Brent Teixeira MD 01/24/2025 11:01 AM OSMANY
--- OUTSIDE RECORDS SUMMARY | 2025-01-24 07:22 | XMS_ITS | Patient Health Record ---
Author Organization [facility] Address [address] [place] [address] Care Team Providers Care Modeling Manager Name Role Phone Justine PATEL, Adrianne Mcconnell Primary Care Provider Un available Black, Kelly Unavailable [phone] Reason For Referral No Information Social History Tobacco use other than smoking: Question Answer Notes Are you an other tobacco user? No Problems No Known Problems Plan Of Treatment Pending Test Test Name Order Date [id number]-FTTELQK NAIL, -12/07/2014 00309-UKRRYAK NAIL, 02-2103/08/2015 75510-XEXHGLI NAIL, 02-2107/05/2015 19927-Fzls Destruction, 03-0207/05/2015 43122-Hkcs Destruction, 03-0210/11/2015 81650-Nsjp Destruction, 03-0201/01/2016 88502-Msde Destruction, 03-0203/08/2015 60589-Iasj Destruction, 03-0202/28/2011 24015-Sjiy Destruction, 03-0204/03/2011 49236-Unjo Destruction, 03-0203/31/2014 67693-Yqgk Destruction, 03-0206/20/2014 33623-Jwhn Destruction, 03-0209/07/2014 78824-Rhcv Destruction, 03-0212/07/2014 70601-Fdaf Destruction, 03-0209/23/2011 99892-Qbyr Destruction, 03-0210/14/2011 04589-Ejfy Destruction, 03-0211/11/2011 35025-Qdue Destruction, 03-0212/16/2011 60537-Ykco Destruction, 03-0205/06/2012 56407-Vgkp Destruction, 03-0206/08/2012 55890-Lsnr Destruction, 03-0209/02/2012 80818-Lbpb Destruction, 03-0210/07/2012 16472-Pycx Destruction, 03-0211/16/2012 69138-Yqww Destruction, 03-0204/15/2013 39130-Biol Destruction, 03-0205/17/2013 90266-Fcpz Destruction, 03-0206/21/2013 16987- Debride <25 sq cm 05/15/2011 37803 I&D ABSCESS- SIMPLE,SINGLE 014 42629- Biopsy of skin lesion 05/01/2011 Insurance Providers Payer Name Payer Address Payer Phone Subscriber Number Group Number Insured Name Patient Relationship to Insured Coverage Start Date Coverage End Date [facility] [address] [place] [address] [id number] Devika Roper Self - patient is the insured Medical (General) History Medical History History ICD Code gall bladder removed chicken pox warts anxiety Surgical History Surgery Date(Month/Year) gall bladder breast surgery Hospitalization History Reason Date(Month/Year) [facility] [place] - Colonoscopy 12/26/2015
== END 2025-01-24 07:18 | disposition home or self-care (01) ==
LOC: HO.HOSX 07:17
PROVIDERS: Visit Provider Physician Assistant
DX: S93.04XD Dislocation of right ankle joint, subsequent encounter (principal); S82.891D Other fracture of right lower leg, subsequent encounter for closed fracture with routine healing; X58.XXXD Exposure to other specified factors, subsequent encounter
CPT/HCPCS: 73610

== ENCOUNTER 2025-01-24 10:34 | Outpatient (AMB) | payer BC, SELFPAY ==
--- NOTE | 2025-01-24 10:42 | A.OFFVIS_ITS ---
Vital Signs 01/24/25 10:56 Height 5 ft 3 in Weight 187 lb BMI 33.1 Intake Visit Reasons: FC-Left trimalleolar fracture dislocation Intake Note: Devika is a 64 year old female who presents today as a new patient for an emergency department follow up for her lright ankle injury, DOI 01/19/25. Patient went to [facility] ED on the same day as her injury where she expressed she was going down stairs with laundry, there was clothes on the steps causing her to trip and fall down 4 steps of stairs. She says she heard a pop in her right ankle then noticed it appeared deformed. She was advised by ED to not ambulate or bear weight on the right ankle. She has discontinued her oxycodone 2 days ago, has been taking acetaminophen in replacement for pain with adequate relief. She reports also keeping it elevated. She says feels irritation on the lateral side of the right foot. If he foot is not elevated she says it feels weighted. Allergies No Known Allergies (No Known Allergies*) Allergy (Verified 01/24/25 10:59) HPI HPI FC-Left trimalleolar fracture dislocation: Details: Ms. Roper is a 64-year-old female who presents to the office today for evaluation of a left ankle injury that occurred on 01/19/2025. Patient states that she is going down the basement stairs and she slipped and fell. She felt immediate pain and inability to ambulate. She presented to the emergency department where x-rays were obtained and she was found to have a right ankle fracture dislocation. Multiple attempts were made in the emergency department to reduce. However, upon reduction the ED reported that the ankle would self dislocate. Therefore, the patient was admitted to the orthopedic service for further evaluation and treatment. Patient was brought to the operating room on 01/20/2025 and underwent a closed reduction with Dr. Lopes. Patient was sub sequently discharged the following day with plans for the patient to continue following up outpatient for surgical planning. Patient remains in the posterior short-leg splint. She has been nonweightbearing as instructed. She has been elevating in her recliner. Reports pain is managed and is only taking Tylenol. No additional complaints. [facility] Medical History History of hemorrhoids History of anxiety disorder History of adenomatous polyp of colon Obesity (BMI 30.0-34.9) Not ready to quit smoking Mixed dyslipidemia Essential hypertension History of lipoma Surgical History History of colonoscopy with polypectomy Hx of dilation and curettage Hx of breast biopsy Hx laparoscopic cholecystectomy Family History Father History of hypertension Hx of hyperlipidemia History of cardiac arrhythmia Alzheimer disease Mother Diabetes Social History (Updated 01/24/25 @ 11:00 by JETHRO Morelos) Household Members: Spouse and Family Housing: House Are you a primary wound care nurse to a significant other at home: No Do you presently have visiting nurse or other home services: No Alcohol intake: current Alcohol intake frequency: holidays/special occasions only Patient Tobacco Use Status: Current someday Tobacco user Tobacco use type: Cigarette Cigarettes Per Day: 5 Years Smoked: 20 e-Cigarette/Vaping Use: Never Used service: No Current occupational status: employed Cognitive needs: No Hearing needs: No Vision needs: Yes Female Reproductive History Menstrual Age of Menarche: 13 Review of Systems Const All systems reviewed & are unremarkable except as noted in HPI and below Physical Exam Vital Signs: BMI result Body Mass Index 33.1 Const General: cooperative, healthy appearing and no acute distress Resp Effort & Inspection: normal respiratory effort and able to speak in complete sentences Extrem Other: Right ankle small fracture blister located along the anterior aspect of the ankle. No evidence of open fracture. Able to move all digits. Sensation is reportedly intact. Psych Appearance: grossly normal Mental Status: mental status grossly normal Attitude: cooperative Assessment & Plan Assessment & Plan (1) Dislocation of ankle, right, closed: Code(s): S93.04XA - Dislocation of right ankle joint, initial encounter Category: Medical (2) Fracture of ankle, right, closed: Code(s): S82.891A - Other fracture of right lower leg, initial encounter for closed fracture Category: Medical Plan Ms. Roper is a 64-year-old female who presents to the office today for evaluation of a left ankle injury that occurred on 01/19/2025. Patient states that she is going down the basement stairs and she slipped and fell. She felt immediate pain and inability to ambulate. She presented to the emergency department where x-rays were obtained and she was found to have a right ankle fracture dislocation. Multiple attempts were made in the emergency department to reduce. However, upon reduction the ED reported that the ankle would self dislocate. Therefore, the patient was admitted to the orthopedic service for further evaluation and treatment. Patient was brought to the operating room on 01/20/2025 and underwent a closed reduction with Dr. Lopes. Patient was subsequently discharged the following day with plans for the patient to continue following up outpatient for surgical planning. Patient remains in the posterior short-leg splint. She has been nonweightbearing as instructed. She has been elevating in her recliner. Reports pain is managed and is only taking Tylenol. No additional complaints. I discussed the case with Dr. Lopes, who was also available to meet the patient and explained the extent of the injury to the patient and options available which include surgical intervention. I explained the procedure in detail along with the length of recovery and rehab course. I explained the risk, benefits and alternatives.? Risks including, but not limited to infection, blood clots, bleeding, delayed healing, non union malunion, post-traumatic arthritis and nerve/tissue damage to surrounding areas, numbness, scar sensitivity, irritation from plates/screws, hardware loosening or breakage, and need for later removal.? Benefits include, restoring proper alignment, improving ankle mobility and function, reduced long-term risk of arthritis, chronic pain or deformity, earlier mobilization of compared to no-operative treatment in unstable fractures. Alternatives include, Non-surgical management; casting or splinting with strict nonweightbearing. The patient had ample opportunity to ask questions. All questions were answered to the patient's satisfaction. The patient verbalized understanding and agreed to move forward with a right ankle open reduction internal fixation performed by Dr. Lopes. The patient demonstrates understanding of the risks, benefits and alternatives and wishes to proceed.? Patient is tentatively scheduled for 01/26/25. Patient will remain NPO after midnight the night before surgery. Patient was placed back into the posterior short-leg splint and will follow up at her postoperative appointment, sooner if needed. Coding Level of Care Code New Pt Level 4 (05932) Complex visit Add On G2211 Diagnoses Dislocation of ankle, right, closed S93.04XA Fracture of ankle, right, closed S82.891A
[2025-01-24 10:56] VITALS: BMI 33.1
== END 2025-01-24 12:03 | disposition home or self-care (01) ==
LOC: HO.HOS 10:35
PROVIDERS: PCP Internal Medicine; Visit Provider Physician Assistant
DX: S93.04XA Dislocation of right ankle joint, initial encounter (principal); S82.891A Other fracture of right lower leg, initial encounter for closed fracture
CPT/HCPCS: 99214

== ENCOUNTER → 2025-01-24 10:36 | Outpatient (BNV) | payer BC, SELFPAY | PROVIDERS: Visit Provider Radiology Diagnostic Radiology | DX: S82.851A Displaced trimalleolar fracture of right lower leg, initial encounter for closed fracture (principal); S93.01XA Subluxation of right ankle joint, initial encounter | CPT/HCPCS: 73610 ==

== ENCOUNTER 2025-01-25 09:09 | Inpatient (IN) | payer BC, SELFPAY ==
--- NOTE | ~2025-01-25 | XR_ITS ---
EXAMINATION: XR ANKLE 3 OR MORE VIEWS RIGHT HISTORY: stepped on foot- known fx COMPARISON: Comparison is made with the prior examination dated 01/24/2025. FINDINGS: Three views of the right ankle are submitted. Osseous mineralization is normal. Again seen are moderately displaced fractures of the distal fibula and medial malleolus as well as a fracture of the posterior malleolus. There is lateral subluxation of the talus with respect to the distal tibia without change. The joint spaces are preserved. There is a moderate plantar calcaneal spur. There is diffuse soft tissue swelling. XR/XR ankle RT min 3V IMPRESSION: Trimalleolar fracture of the right ankle with lateral subluxation of the talus without significant change. Electronically signed by: Vamshi Rosas MD 01/25/2025 09:55 AM [facility]
--- NOTE | ~2025-01-25 | FL_ITS ---
EXAMINATION: XR FLUOROSCOPY WITH IMAGES CLINICAL INFORMATION: Right ankle fracture COMPARISON: None available. TECHNIQUE: Fluoroscopy time: 31 seconds DAP: 0.7 mGy Images: 4 FINDINGS: Fluoroscopy provided for internal fixation of a distal fibular and medial malleolar fracture. No radiologist present. FL/FL guidance in OR IMPRESSION: Fluoroscopy provided for procedure. See procedure report for details. Electronically signed by: Azam Fenton MD 01/27/2025 04:20 PM [facility]
[2025-01-25 09:15] VITALS: BP 144/80; BP 170/100; PULSE 102; PULSE 81; RESP 18; TEMP 36.7; O2SAT 100; O2SAT 97; BMI 32.6
--- NOTE | 2025-01-25 09:27 | ED.EXTPRO ---
HPI - Extremity Problem General Chief complaint: Extremity Problem Stated complaint: R ANKLE FX LAST WK,TRIP T-1/FELT & HEARD CRUNCH Time Seen by Provider: 01/25/25 09:24 Source: patient, EMS, RN notes reviewed and old records reviewed Mode of arrival: EMS History of Present Illness ED Provider: Rachel Astorga PA-C HPI Narrative: 64-year-old female with a past medical history HTN, HLD, s/p right ankle fracture dislocation s/p closed reduction with Dr. Lopes on 01/20/2025 with plan to surgical intervention tomorrow presenting to the ED complaining of worsening RLE pain s/p losing balance and putting foot down on ground yesterday after her orthopedic appointment. Denies numbness, weakness, head strike, LOC Related Data Home Medications ?Medication ?Instructions ?Recorded ?Confirmed Prevagen Regular Strength 1 cap PO DAILY 01/19/25 01/25/25 multivitamin with minerals-folic 1 tab PO DAILY 01/19/25 01/25/25 acid 200 mcg chewable tablet (Multivitamin Gummies) soluble corn fiber-inulin 1.7 gram 1 tab PO DAILY 01/19/25 01/25/25 chewable tablet (Metamucil (inulin-corn fiber)) oxycodone 5 mg tablet 5 mg PO Q4H PRN moderate pain 01/25/25 01/25/25 Previous Rx's ?Medication ?Instructions ?Recorded acetaminophen 325 mg tablet 650 mg (2 x 325 mg) PO Q6H PRN 01/21/25 Pain, Mild 1-3,Fever,Headache #60 tabs celecoxib 200 mg capsule 200 mg PO BID 7 days #14 caps 01/21/25 docusate sodium 100 mg capsule 100 mg PO BID 7 days #14 caps 01/21/25 Allergies Allergy/AdvReac Type Severity Reaction Status Date / Time No Known Allergies (No Known Allergy Verified 01/25/25 09:20 Allergies*) Review of Systems Review of Systems: Yes all other systems are reviewed and are negative Constitutional: Constitutional: Reports as per [facility] Past Medical History Attestation statement: The following information was validated with the patient. Source: old records reviewed Medical History History of hemorrhoids History of anxiety disorder History of adenomatous polyp of colon Obesity (BMI 30.0-34.9) Not ready to quit smoking Mixed dyslipidemia Essential hypertension History of lipoma Surgical History History of colonoscopy with polypectomy Hx of dilation and curettage Hx of breast biopsy Hx laparoscopic cholecystectomy Family History Family History Father History of hypertension Hx of hyperlipidemia History of cardiac arrhythmia Alzheimer disease Mother Diabetes Social History Social History Household Members: Spouse and Family Housing: House Are you a primary skin care therapist to a significant other at home: No Do you presently have visiting nurse or other home services: No Alcohol intake: current Alcohol intake frequency: a few times a week Patient Tobacco Use Status: Current everyday Tobacco user Tobacco use type: Cigarette Cigarettes Per Day: 5 Years Smoked: 20 e-Cigarette/Vaping Use: Never Used Second Hand Smoke Exposure: No Advance Directives Date on File: 01/25/25 service: No Current occupational status: employed Cognitive needs: No Hearing needs: No Vision needs: Yes Physical Exam Vital Signs: Vital Signs: Last Vital Signs Temp 99.2 F 01/26/25 07:33 Pulse 71 01/26/25 07:33 Resp 17 01/26/25 07:33 BP 142/77 H 01/26/25 07:33 Pulse Ox 96 01/26/25 07:33 O2 Del Method Room Air 01/26/25 07:33 BMI result Body Mass Index 32.6 Const: General: cooperative, healthy appearing and no acute distress Orientation/consciousness: patient oriented x3 Limitations: no limitations HEENT: Head: Yes normal to inspection and Yes atraumatic Ears: hearing grossly normal bilaterally General nose exam: Normal external nose present Face and sinus: Yes normal facial exam Eyes: General: appearance normal, both eyes and all related structures EOM: EOMs intact bilaterally Neck: Neck: Yes normal visual inspection and Yes no meningeal signs Resp: Effort & Inspection: normal respiratory effort and no respiratory distress Cardio: Rate: regular rate Skin: Rashes: no rashes Wounds: no wounds Neuro: General: patient oriented x3, tone normal and no meningeal signs Cranial nerves: Yes CN's II-XII intact bilaterally Gait exam (Neuro): Normal gait present Extrem: Other: splint intact to RLE. Sensation intact to light touch to toes. ROM to toes intact. Course Course Course Narrative: XR ankle RT min 3V IMPRESSION: Trimalleolar fracture of the right ankle with lateral subluxation of the talus without significant change. > case d/w Ortho PA Shailesh who evaluated patient & plan is for admission & planned surgery tomorrow Medications Administered Generic Name Dose Route Start Last Admin Trade Name Freq PRN Reason Stop Dose Admin Acetaminophen 650 mg 01/25/25 14:29 01/26/25 04:39 Acetaminophen 325 Mg Tablet PO 650 mg Q6H PRN Administration Pain, Mild 1-3,fever,headache Docusate Sodium 100 mg 01/25/25 21:00 01/26/25 07:29 Docusate Sodium 100 Mg Capsule PO Not Given BID ROGER Lactated Ringer's 1,000 mls @ 100 mls/hr 01/25/25 14:29 01/26/25 02:04 Lr IVCONT 100 mls/hr .Q10H ROGER Administration Lactated Ringer's 1,000 mls @ 100 mls/hr 01/26/25 07:45 01/26/25 07:42 Lr IVCONT 100 mls/hr .Q10H ROGER Administration Oxycodone HCl 5 mg 01/25/25 14:29 01/25/25 14:54 Oxycodone Hcl Immed Release 5 Mg Tablet PO 5 mg Q4H PRN Administration Pain, Moderate(Pain Scale 4-6) Sodium Chloride 3 ml 01/25/25 16:00 01/26/25 07:01 0.9 % Sodium Chloride Flush 3 Ml Syringe IVFLUSH Not Given QSHIFT [facility] Medical Decision Making Medical Decision Making [facility] Narrative: 64-year-old female with a past medical history HTN, HLD, s/p right ankle fracture dislocation s/p closed reduction with Dr. Lopes on 01/20/2025 with plan to surgical intervention tomorrow presenting to the ED complaining of worsening RLE pain s/p losing balance and putting foot down on ground yesterday after her orthopedic appointment. On exam vital signs stable, NAD, nontoxic appearing. Physical exam as above. Concern for worsening fracture/dislocation. Patient has plan surgical intervention tomorrow. Will not remove splint until x-rays are obtained Plan: X-ray, orthopedic consult Please refer to course for remaining clinical decision making, interpretation of labs/imaging results, and discussions with consultants and/or family members. 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 Independent Interpretation I performed an independent interpretation of an: Plain X-Ray Radiology Impression Discussion of test interpretation with radiology: I have reviewed the radiologist's reading. Independent Historian Clinical information obtained from an independent historian. History obtained from or confirmed by: EMS External Record Review External record reviewed: Inpatient record, Office record, Outpatient record, Prior outpatient labs, Prior outpatient radiology, Primary care record and Outside ED record Tests considered The following testing was considered but not selected: As above Prescription Management I considered prescription management with: Pain Medication Chronic Conditions Patient?s care impacted by: Other Social Determinants Patient?s care significantly limited by Social Determinants of Health including: Other Social Determinant of Health Discharge Plan Discharge Clinical Impression: Closed trimalleolar fracture Qualifiers: Laterality: right Patient Disposition: Admitted As Inpatient Discharge Date/Time: 01/25/25 20:33
--- NOTE | 2025-01-25 12:21 | PHA.MEDREC ---
Addendum entered by Reina Barreto RPh 01/25/25 12:36: Reviewed by [facility] Original Note: Pharmacy Consult ? Medication Reconciliation Pharmacy has completed the medication reconciliation. Spoke with pt and she confirmed her medications.
[2025-01-25 14:07] VITALS: BP 114/78; PULSE 82; RESP 16; TEMP 36.7; O2SAT 98
[2025-01-25] MEDS: oxyCODONE HCl Immed Release 5 MG TABLET PO (14:54)
[2025-01-25] MEDS: Lactated Ringers 1,000 ML 100 ML IVCONT (15:32)
[2025-01-25 18:08] VITALS: BP 115/73; PULSE 80; RESP 16; TEMP 37.1; O2SAT 96
--- NOTE | 2025-01-25 19:03 | PM.HPOR ---
History of Present Illness History of Present Illness Date of Service: 01/25/25 Chief complaint: rt ankle fx Narrative: Devika Roper is a 64 year old female who presented to the ED earlier today due to right ankle worsening pain. She states she was at home yesterday when she lost her balance and put all her weight onto her right lower extremity to catch herself. Initially she called the Orthopedic office but could not get through. She continued to elevate at home and was taking her pain medication as needed but the pain continued to worsened which prompted her to call the office this morning and she was directed to the ED for further evaluation. While in the ED, xrays were obtained with the splint on and orthopedics was contacted to evaluate the patient. The patients initial DOI is 01/19/25, she sustained a trimalleolar ankle fracture after falling down her basement stairs. She was seen in the ED, reduction performed and she was placed in a splint. We have been following the patient in our clinic and she was booked for ORIF right ankle 01/26/25 . Upon examination this morning, her splint was clean dry and intact. Xrays in the ED showed maintained ankle reduction. The plan is to admit her to the orthopedic service for pain managmemt and ORIF right ankle tomorrow. Review of Systems Review of Systems: Yes all other systems are reviewed and are negative PMFSH Past Medical History Medical History History of hemorrhoids History of anxiety disorder History of adenomatous polyp of colon Obesity (BMI 30.0-34.9) Not ready to quit smoking Mixed dyslipidemia Essential hypertension History of lipoma Family History Family History Father History of hypertension Hx of hyperlipidemia History of cardiac arrhythmia Alzheimer disease Mother Diabetes Surgical History Surgical History History of colonoscopy with polypectomy Hx of dilation and curettage Hx of breast biopsy Hx laparoscopic cholecystectomy Social History Social History Household Members: Spouse and Family Housing: House Are you a primary regular senior care provider to a significant other at home: No Do you presently have visiting nurse or other home services: No Alcohol intake: current Alcohol intake frequency: holidays/special occasions only Patient Tobacco Use Status: Current someday Tobacco user Tobacco use type: Cigarette Cigarettes Per Day: 5 Years Smoked: 20 Smoked in Last 30 Days: Yes e-Cigarette/Vaping Use: Never Used Use of substances other than those prescribed or required for medical reasons: No Advance Directives: Yes Advance Directives Information Provided: Yes Advance Directives on File: No Do you have a plan to hurt others: No Plan Nutrition Risks: No Nutritional Risk service: No Current occupational status: employed Cognitive needs: No Hearing needs: No Vision needs: Yes Meds Allergies Allergy/AdvReac Type Severity Reaction Status Date / Time No Known Allergies (No Known Allergy Verified 01/25/25 09:20 Allergies*) Active Medications: Current Medications Acetaminophen (Acetaminophen 325 Mg Tablet) 650 mg PO Q6H PRN PRN Reason: Pain, Mild 1-3,fever,headache Last Admin: 01/25/25 18:13 Dose: 650 mg Docusate Sodium (Docusate Sodium 100 Mg Capsule) 100 mg PO BID [facility] Lactated Ringer's (Lr) 1,000 mls @ 100 mls/hr IVCONT .Q10H [facility] Last Admin: 01/25/25 15:32 Dose: 100 mls/hr Cefazolin Sodium/Dextrose (Ancef) 2 gm in 50 mls @ 100 mls/hr IV PREOP ONE Stop: 01/26/25 07:29 Ondansetron HCl (Ondansetron Hcl 4 Mg/2 Ml Vial) 4 mg IVPUSH Q8H PRN PRN Reason: Nausea and Vomiting Oxycodone HCl (Oxycodone Hcl Immed Release 5 Mg Tablet) 5 mg PO Q4H PRN PRN Reason: Pain, Moderate(Pain Scale 4-6) Last Admin: 01/25/25 14:54 Dose: 5 mg Sodium Chloride (0.9 % Sodium Chloride Flush 3 Ml Syringe) 3 ml IVFLUSH QSHIFT [facility] Last Admin: 01/25/25 15:36 Dose: Not Given Home Medications ?Medication ?Instructions ?Recorded ?Confirmed ?Last Taken ?Type Prevagen Regular Strength 1 cap PO DAILY 01/19/25 01/25/25 01/24/25 History multivitamin with minerals-folic 1 tab PO DAILY 01/19/25 01/25/25 01/24/25 History acid 200 mcg chewable tablet (Multivitamin Gummies) soluble corn fiber-inulin 1.7 gram 1 tab PO DAILY 01/19/25 01/25/25 01/24/25 History chewable tablet (Metamucil (inulin-corn fiber)) oxycodone 5 mg tablet 5 mg PO Q4H PRN moderate pain 01/25/25 01/25/25 Unknown History Physical Exam Vital Signs: Vital Signs: Last Vital Signs Temp 98.7 F 01/25/25 18:08 Pulse 80 01/25/25 18:08 Resp 16 01/25/25 18:08 BP 115/73 01/25/25 18:08 Pulse Ox 96 01/25/25 18:08 O2 Del Method Room Air 01/25/25 18:08 BMI result Body Mass Index 32.6 Const: General: cooperative and no acute distress Orientation/consciousness: patient oriented x3 Resp: Effort & Inspection: normal respiratory effort and able to speak in complete sentences Cardio: Peripheral pulses: Peripheral pulses 2+ throughout Neuro: General: patient oriented x3 Extrem: Other: Right ankle small fracture blister located along the anterior aspect of the ankle has resolved. No evidence of open fracture. Minimal swelling. Able to move all digits. Sensation is reportedly intact. Pulses present. Psych: Appearance: grossly normal Mental Status: mental status grossly normal Attitude: cooperative Results Labs Labs: All other labs normal. Assessment and Plan (1) Fracture of ankle, right, closed: Status: Acute Plan I discussed the case with Dr. Lopes. The decision was to admit the patient to the orthopedic service for pain management and surgical planning. I explained the extent of the injury to the patient and options available which include surgical intervention. I explained the procedure in detail along with the length of recovery and rehab course. I explained the risk, benefits and alternatives.? Risks including, but not limited to infection, blood clots, bleeding, delayed healing, non union malunion, post-traumatic arthritis and nerve/tissue damage to surrounding areas, numbness, scar sensitivity, irritation from plates/screws, hardware loosening or breakage, and need for later removal.? Benefits include, restoring proper alignment, improving ankle mobility and function, reduced long-term risk of arthritis, chronic pain or deformity, earlier mobilization of compared to no-operative treatment in unstable fractures. Alternatives include, Non-surgical management; casting or splinting with strict nonweightbearing. The patient had ample opportunity to ask questions. All questions were answered to the patient's satisfaction. The patient verbalized understanding and agreed to move forward with a right ankle open reduction internal fixation performed by Dr. Lopes. The patient demonstrates understanding of the risks, benefits and alternatives and wishes to proceed.? Patient is tentatively scheduled for 01/26/25. Patient will remain NPO after midnight. Quality Stroke Does the patient have a stroke diagnosis?: No VTE Prior VTE?: No VTE Risk Level:: Medical - moderate - high VTE Device Contraindication: N/A - Device Ordered VTE Drug Contraindication: Treatment Not Indicated (pre op) Procedures Date of Service Date of Service: 01/25/25
--- NOTE | 2025-01-25 19:23 | PC.NURSE ---
Patient presents to ED s/p fall on 01/19/25 with increased pain Xray: trimalleolar ankle fracture after falling down her basement stairs. She was seen in the ED, reduction performed and she was placed in a splint. We have been following the patient in our clinic and she was booked for ORIF right ankle 01/26/25 Patient SB assist to bedside commode w/ walker, actually moves fairly well w/ this. Alert and Oriented Plan for surgery in the AM, NPO @ midnight. Pain well controlled w/ alternating oxy and tylenol.
[2025-01-25 20:17] VITALS: BP 125/71; PULSE 74; RESP 18; TEMP 36.1; O2SAT 97
[2025-01-26] VITALS (12 sets, daily range): BP systolic 86–142; BP diastolic 44–79; PULSE 70–91; RESP 9–19; TEMP 36–37.3; O2SAT 94–97
[2025-01-26] MEDS: Lactated Ringers 1,000 ML 100 ML IVCONT ×3 (02:04→18:32)
--- NOTE | 2025-01-26 07:31 | MHC.SHP ---
Pre-Procedural Eval Section A - 24 Hr Update-Section A only Date of Service: 01/26/25 The patient is an INPATIENT: Yes Changes since office visit: No Cold of Flu in the past 2 weeks, No New Medical Problems, No Changes in Medication and No Patient answered all questions The patient has been examined within 24 hours of the surgical procedure. The History & Physical has been completed within 30 days and I have reviewed it.: Yes Section B - Complete if H&P > 30 days Chief Complaint: rt ankle fx Allergies: Allergies Allergy/AdvReac Type Severity Reaction Status Date / Time No Known Allergies (No Known Allergy Verified 01/25/25 09:20 Allergies*) Plan I have reviewed the history and physical and performed a pertinent physical examination on my patient. No changes have occurred unless specified. Time Spent With Patient Time: Total time managing care of this patient today ____ minutes.
--- NOTE | 2025-01-26 13:17 | MHC.CM.PN ---
met with pt who lives with ptmis indepedent had no sertvices prior to admission pt plans on goingnhomemwith vna pt has own transportation home
--- NOTE | 2025-01-26 13:35 | P.BOP_ITS ---
Brief Operative Note Date of Service: 01/26/25 Pre-op diagnosis: Right ankle fracture Post-op diagnosis: same Procedure: 1) ORIF dionisio 2) ORIF syndesmosis Implants: [place] Pangea 6 hople lateral plate Strkler 4.0 cannulated partially threaded 40mm screws x 2 [place] [employer] Meniscal Cinchfix x 1 Surgeon: Shahzad Lopes MD Anesthesia: GETA and regional Was an Home Care Chaplain used for this Procedure?: Yes Home Care Chaplain: Suzi Rice Estimated blood loss (mL): 25 Tourniquet time (min): 60 IV fluids (mL): 1,000 Pathology: none sent Condition: stable Disposition: PACU
--- NOTE | 2025-01-26 15:24 | W.PM.OPN ---
Operative Note Operative Note Date of Service: 01/26/25 Narrative: Date of Service: 01/26/25 Pre-op diagnosis: Right ankle fracture Post-op diagnosis: same Procedure: 1) ORIF dionisio 2) ORIF syndesmosis Implants: [place] Pangea 6 hople lateral plate Strkler 4.0 cannulated partially threaded 40mm screws x 2 [employer] Meniscal Cinchfix x 1 Surgeon: Shahzad Lopes MD Anesthesia: GETA and regional Was an Manager [employer] used for this Procedure?: Yes Manager [employer]: Suzi Rice Estimated blood loss (mL): 25 Tourniquet time (min): 60 IV fluids (mL): 1,000 Pathology: none sent Condition: stable Disposition: PACU Patient was brought to the operating room and placed supine on the operative table. All bony prominences were well padded and a time-out was called to identify proper site proper procedure proper surgeon. IV antibiotics per weight were administered. I began by exsanguinating limb is slightly tourniquet to 300 mm Hg. I then made a standard posterolateral incision over the fibula. Full-thickness flaps were taken down to the fibular shaft and distal fibula. The fracture was identified and cleaned with a combination of curette, rongeur and irrigation. A lobster claw was used to provisionally reduce the fracture. A lag screw was palced perpendicular to the opblique fracture from posterior to anterior. A Pangea 6 hole distal fibular posterolateral locking plate was applied using standard AO technique. Biplanar fluoroscopy was used to confirm hardware position and fracture reduction. Once I was satisfied that both of these were acceptable I irrigated copiously and turned my attention to the medial side. The transverse medial malleolar fracture was identified after skin incision. Full-thickness skin flaps were developed and, with a sharp tenaculum, the fracture was reduced. 2 threaded K-wires were then placed from distal to proximal and perpendicular to the fracture. Biplanar fluoroscopy was used to confirm positioning and then they were overdrilled and 2 40 mm 4.0 partially-threaded cannulated cancellous screws were placed across the fracture. I was satisfied with the position and the fracture reduction based on biplanar fluoroscopy. This syndesmosis was tested using external rotation test and was found to be unstable with opening > 2 mm. Given the nature of the fracture a syndesmosis cinch was applied. Using the hole at the level just proximal to the physeal scar a large k wire was drilled parallel to the joint. The cinch was then inserted and the medial button attached. A countersink was drilled through the plate and the cinch tightened. An external rotation test show less medial opening than prior. Therefore all instrumentation was removed and copious irrigation was performed. Absorbable suture and graeme were used for closure and the patient was placed into sterile dressings and a well-padded posterior splint. Tourniquet was let down and the patient was extubated brought to recovery room in stable condition there were no known complications.
--- NOTE | 2025-01-27 01:10 | PC.NURSE ---
Assumed care of pt at 1900. Pt medicated per APR. Call márquez in reach. High fall precautions in place. Report given to oncoming RN at [phone]. Plan of care ongoing.
[2025-01-27] MEDS: Lactated Ringers 1,000 ML 100 ML IVCONT (02:44)
[2025-01-27 03:53] VITALS: BP 127/65; PULSE 86; RESP 14; TEMP 36; O2SAT 97
--- NOTE | 2025-01-27 07:30 | PM.PNORT ---
Subjective Subjective Date of Service: 01/27/25 Interval history: Postop day 1 status post right ankle ORIF Patient resting comfortably in bed this morning Patient reports that the block administered prior to surgery yesterday has begun to wear off, however she does still have numbness in the right ankle in his unable to move the digits of the right foot No acute events overnight Patient states she would like to trial crutches versus a walker this morning to see how she is best able to not weightbear in the right lower extremity No other acute complaints or concerns at this time Physical Exam Vital Signs: Vital Signs: Last Vital Signs Temp 96.8 F 01/27/25 03:53 Pulse 86 01/27/25 03:53 Resp 14 01/27/25 03:53 BP 127/65 01/27/25 03:53 Pulse Ox 97 01/27/25 03:53 O2 Del Method Room Air 01/27/25 03:53 O2 Flow Rate 2 01/26/25 12:07 BMI result Body Mass Index 32.6 Extrem: Other: Splint on right ankle clean, dry, intact No evidence of surrounding erythema, ecchymosis No evidence of infection Patient is unable to actively flex or extend the digits of the right foot, as the block has not worn off Compartments soft, nontender Distal sensation intact Capillary refill brisk Procedures Date of Service Date of Service: 01/27/25 Progress Note: A&P Assessment and plan (1) Closed trimalleolar fracture: Status: Acute (2) Dislocation of ankle, right, closed: Status: Acute Plan Continue pain management Continue elevation of right lower extremity while in bed Nonweightbearing on right lower extremity Patient should work with physical therapy today on best ways to ambulate while nonweightbearing in the right lower extremity prior to discharge Patient states she would like to work with crutches and a walker, to see which works better for her Anticipate discharge after working with PT Patient understands this and is amenable to this plan Time Spent With Patient Time: Total time managing care of this patient today ____ minutes. Quality Stroke Does the patient have a stroke diagnosis?: No VTE Prior VTE?: No VTE Risk Level:: Medical - moderate - high VTE Device Contraindication: N/A - Device Ordered VTE Drug Contraindication: Treatment Not Indicated (pre op)
[2025-01-27 07:50] VITALS: BP 145/63; PULSE 84; RESP 18; TEMP 36.7; O2SAT 97
--- NOTE | 2025-01-27 07:56 | HO.POSTANES ---
Post Anesthesia Evaluation Post Anesthesia Evaluation Date of Service: 01/27/25 Vital Signs: Vital Signs Temp Pulse Resp BP Pulse Ox O2 Del Method 01/27/25 07:50 98.0 F 84 18 145/63 H 97 Room Air 01/27/25 03:53 96.8 F 86 14 127/65 97 Room Air 01/26/25 23:54 96.8 F 84 16 136/73 97 Room Air Anesthesia: Nerve Block and General Mental Status: Awake Pain Control: Satisfactory Nausea/Vomiting: None Hydration: Adequate Anesthesia-Related Issues: No Anes. Related Issues
--- NOTE | 2025-01-27 08:25 | PC.NURSE ---
Patient refusing IV at this time
--- NOTE | 2025-01-27 09:28 | PC.NURSE ---
Patient doing well, plan for d/c today per PT.
--- NOTE | 2025-01-27 10:03 | P.DS_ITS ---
DS: Providers Provider Date of Service: 01/27/25 Date of admission: 01/25/25 12:18 Date of discharge: 01/27/25 Primary care physician: Adrianne Fletcher MD DS: Diagnosis Discharge Diagnosis (1) Closed trimalleolar fracture: Status: Acute (2) Dislocation of ankle, right, closed: Status: Acute DS: Summary Hospital Course Hospital Course: The patient underwent a successful right ankle ORIF on 01/26/[address] Lopes, was transferred to PACU and then to the floor to recover. During their stay, their vitals were stable, afebrile at 98.0. they also received Physical Therapy services twice a day. Patient is to be nonweightbearing on the right lower extremity for approximately 6 weeks Patient should use crutches or walker to aid with this Keep splint clean, dry, intact at all times Elevate as much as possible The right ankle splint should remain intact and dry at all times. Any concerns with the dressing, please contact orthopedic office. No showering. The plan is to be discharged Status at Discharge Cognitive/behavioral status at discharge: Stable for discharge Time Attestation Discharge Coordination Time (in mins): 30 Quality: Safe Use of Opioids Does Pt have an Active Cancer Diagnosis on the Problem List?: No Quality: Stroke Does the patient have a stroke diagnosis?: No Physical Exam Vital Signs: Vital Signs: Last Vital Signs Temp 98.0 F 01/27/25 07:50 Pulse 84 01/27/25 07:50 Resp 18 01/27/25 07:50 BP 145/63 H 01/27/25 07:50 Pulse Ox 97 01/27/25 07:50 O2 Del Method Room Air 01/27/25 07:50 O2 Flow Rate 2 01/26/25 12:07 BMI result Body Mass Index 32.6 Extrem: Other: Splint on right ankle clean, dry, intact No evidence of surrounding erythema, ecchymosis No evidence of infection Patient is unable to actively flex or extend the digits of the right foot, as the block has not worn off Compartments soft, nontender Distal sensation intact Capillary refill brisk Discharge Plan Discharge Anticipated Discharge Date/Time: 01/27/25 09:59 Patient Disposition: Home, Self-Care Discharge Diagnosis: s/p right ankle ORIF Referrals: Adrianne Fletcher MD [Primary Care Provider, Internal Medicine] - 1 Week Suzi Rice PA-C [Physician Driver/Guide, Orthopedics] - 1 Week Referral Note: 02/01/25 14:45 [facility] Suzi Rice PA-C Discharge Medications: New celecoxib 200 mg Capsule 200 mg PO BID 7 Days Qty: 14 0RF docusate sodium 100 mg Capsule 100 mg PO BID 7 Days Qty: 14 0RF oxycodone 5 mg Tablet 5 mg PO Q4H PRN (Reason: Pain, Moderate(Pain Scale 4-6)) 7 Days Qty: 42 0RF Rx Instructions: Partial Fill upon patient request. (DME) [facility] [place] Instructions .Route Qty: 1 0RF Rx Instructions: As directed Continued Metamucil (inulin-corn fiber) 1.7 gram Tablet,Chewable 1 tab PO DAILY multivit with min-folic acid [Multivitamin Gummies] 200 mcg Tablet,Chewable 1 tab PO DAILY Prevagen Regular Strength capsule 1 cap PO DAILY acetaminophen 325 mg Tablet 650 mg PO Q6H PRN (Reason: Pain, Mild 1-3,Fever,Headache) Qty: 60 0RF Discontinued celecoxib 200 mg Capsule 200 mg PO BID 7 Days Qty: 14 0RF docusate sodium 100 mg Capsule 100 mg PO BID 7 Days Qty: 14 0RF oxycodone 5 mg tablet 5 mg PO Q4H PRN (Reason: moderate pain) Discharge Orders: Discharge Order (Routine); Ordered 01/27/25 Ordered By: Dario Gant Diet: Advance to usual diet Activity on Discharge: Walk with crutches Stand Alone Forms: Patient Portal Discharge page Print Language: Tuvaluan Care Plan Goals: 1. Activity and Weightbearing * Do NOT bear weight on the operative leg until cleared. * Use crutches or a walker * Keep your leg elevated above heart level as much as possible for the first 5-7 days to reduce swelling. * Avoid prolonged standing or sitting with the leg hanging down. * Move your toes and non-injured joints often to maintain circulation. 2. Immobilization and Dressing * Keep the splint, cast, or boot clean and dry at all times. * Do not remove the splint or dressings. * If the splint feels excessively tight, numbness develops, or your toes become pale/blue and cold, loosen the chris wrap if possible and contact your surgeon immediately. * Call orthopedics if the splint becomes wet. 3. Wound Care * Keep the dressing intact and dry until your follow-up visit or until instructed to change it. * Do not soak the incision (no baths, pools, or hot tubs) until the incision is fully healed. * Do not shower. 4. Pain Management * Take prescribed pain medications as directed. * You may use Tylenol or NSAIDs if approved by your surgeon for mild pain. * Ice may be applied over the splint (20 minutes on, 20 minutes off) several times a day to help with pain and swelling ? make sure the splint stays dry. 5. Diet and Constipation Prevention * Resume your regular diet as tolerated. * Pain medications can cause constipation ? increase fluids, fiber, and activity as tolerated. * You may use gkkh-mkv-bemafej stool softeners (Colace, Senna, Miralax) if needed. 6. Signs to Contact Your Surgeon Call your surgeon or go to the emergency room if you experience: * Fever > 101?F (38.3?C) * Excessive swelling, redness, or drainage from incision site(s) * Numbness, tingling, or inability to move your toes * Calf pain, swelling, or shortness of breath (possible blood clot) 7. Follow-Up * Your first postoperative appointment is typically 10?14 days after surgery for wound check and possible suture/staple removal and cast placement. Health Concerns: None Plan of Treatment: see above Assessment: stable for discharge
--- NOTE | 2025-01-27 10:44 | MHC.CM.PN ---
PT WILL DC HOME TODAY WITH [employer] DAUGHTER TO TRANSPORT
--- NOTE | 2025-01-27 10:44 | W.MHC.F2F ---
Service Date Service Date: 01/27/25 Encounter Date of encounter: 01/27/25 Reasons for Services Signs and symptoms assessed: Status post right ankle ORIF Reason for physical therapy: home safety and mobility and ADL training Homebound: Leaving the home is medically contraindicated at this time without the asist of a device and/or another person due th the listed conditions above and below. Reason homebound: unsteady gait / fall risk, poor balance / fall risk and non-weight bearing Certification: Based on the above findings, I certify that this patient is confined to the home and needs intermittent senior care care, physical therapy and/or speech therapy, or continues to need occupational therapy. The patient is under my care, and I have initiated the establishment of the plan of care. The patient will be followed by a physician who will periodically review the plan of care. Time Spent With Patient Time: Total time managing care of this patient today ____ minutes.
[2025-01-27 11:02] VITALS: BP 108/54; PULSE 84; RESP 18; TEMP 36.9; O2SAT 96
== END 2025-01-27 11:30 | disposition home health service (06) | DRG 313 ==
LOC: HO.ED 10:39 → HO.EDOVER 12:32 → HO.S3 19:10
PROVIDERS: Orthopaedic Surgery; Admitting Provider Physician Assistant; Emergency Provider Emergency Medicine Emergency Medical Services; PCP Internal Medicine; Visit Provider Physician Assistant
PROC: 0QSG04Z Reposition Right Tibia with Internal Fixation Device, Open Approach (ICD-10-PCS; principal; 2025-01-26 09:40)
DX: S82.851A Displaced trimalleolar fracture of right lower leg, initial encounter for closed fracture (principal); W19.XXXA Unspecified fall, initial encounter
CPT/HCPCS: 73610; 97162; 99285; C1713; J0131; J0665; J0690; J1100; J1171; J2003; J2250; J2405; J2704; J3010; J7120

== ENCOUNTER → 2025-01-25 09:35 | Outpatient (BNV) | payer BC, SELFPAY | PROVIDERS: Emergency Provider Emergency Medicine Emergency Medical Services; PCP Internal Medicine; Visit Provider Radiology Diagnostic Radiology | DX: S82.851A Displaced trimalleolar fracture of right lower leg, initial encounter for closed fracture (principal); S93.01XA Subluxation of right ankle joint, initial encounter | CPT/HCPCS: 73610 ==

== ENCOUNTER → 2025-01-25 12:18 | Outpatient (BNV) | payer BC, SELFPAY | PROVIDERS: Admitting Provider Physician Assistant; Emergency Provider Emergency Medicine Emergency Medical Services; PCP Internal Medicine; Visit Provider Physician Assistant | DX: S82.891A Other fracture of right lower leg, initial encounter for closed fracture (principal) | CPT/HCPCS: 99223 ==

== ENCOUNTER 2025-02-01 14:25 | Outpatient (AMB) | payer BC, SELFPAY ==
--- NOTE | 2025-02-01 14:35 | MHC.OFFVIS ---
Vital Signs 02/01/25 15:26 BP 124/79 Blood Pressure Location Lt brachial Pulse 80 Pulse Source Pulse Oximeter Pulse Oximetry (%) 98 Oxygen Delivery Method Room Air Intake Visit Reasons: PO RT ankle ORIF 01/26/25 NE Intake Note: Devika is a 64 year old female who presents today for a post operative appointment status post right ankle ORIF 01/26/25 NE. Patient reports she is doing well. She has been taking her pain medication when she needs it. Allergies No Known Allergies (No Known Allergies*) Allergy (Verified 02/01/25 14:41) HPI HPI PO RT ankle ORIF 01/26/25 NE: Details: The patient is a 64-year-old female who presents to the office today for a wound check status post right ankle ORIF performed on 01/26/[address] Lopes. Patient has been nonweightbearing as instructed on the right lower extremity. Overall the patient has been doing very well. Pain is managed. No additional complaints. [facility] Medical History History of hemorrhoids History of anxiety disorder History of adenomatous polyp of colon Obesity (BMI 30.0-34.9) Not ready to quit smoking Mixed dyslipidemia Essential hypertension History of lipoma Surgical History History of colonoscopy with polypectomy Hx of dilation and curettage Hx of breast biopsy Hx laparoscopic cholecystectomy Family History Father History of hypertension Hx of hyperlipidemia History of cardiac arrhythmia Alzheimer disease Mother Diabetes Social History Household Members: Spouse and Family Housing: House Are you a primary adult care manager to a significant other at home: No Do you presently have visiting nurse or other home services: No Alcohol intake: current Alcohol intake frequency: a few times a week Patient Tobacco Use Status: Current everyday Tobacco user Tobacco use type: Cigarette Cigarettes Per Day: 5 Years Smoked: 20 e-Cigarette/Vaping Use: Never Used Second Hand Smoke Exposure: No Advance Directives Date on File: 01/25/25 service: No Current occupational status: employed Cognitive needs: No Hearing needs: No Vision needs: Yes Female Reproductive History Menstrual Age of Menarche: 13 Review of Systems Const All systems reviewed & are unremarkable except as noted in HPI and below Physical Exam Const General: cooperative, healthy appearing and no acute distress Resp Effort & Inspection: normal respiratory effort and able to speak in complete sentences Extrem Other: Right ankle incision sites are clean dry and intact. Sutures intact. No surrounding erythema or drainage. No signs of infection or wound breakdown. Pedal pulse intact. Sensation is intact. Psych Appearance: grossly normal Mental Status: mental status grossly normal Attitude: cooperative Office Procedures Casting/Splints 29726-Qvzcu Leg splint application Procedure code (CPT) selection complete Assessment & Plan Assessment & Plan (1) Closed trimalleolar fracture: Code(s): S82.853A - Displaced trimalleolar fracture of unspecified lower leg, initial encounter for closed fracture Category: Medical Qualifiers: Laterality: right (2) Status post open reduction with internal fixation (ORIF) of fracture of ankle: Code(s): Z98.890 - Other specified postprocedural states; Z87.81 - Personal history of (healed) traumatic fracture Category: Surgical Plan The patient is a 64-year-old female who presents to the office today for a wound check status post right ankle ORIF performed on 01/26/[address] Lopes. Patient has been nonweightbearing as instructed on the right lower extremity. Overall the patient has been doing very well. Pain is managed. No additional complaints. While the office today, a wound check was performed. Patient is overall doing very well and there are no signs of infection or wound breakdown at this time. Upon the patient visualizing the operative ankle she developed lightheadedness and diaphoresis with near syncope. No loss of consciousness occurred. Symptoms resolved after positioning supine and observation. Vital signs remained stable. She was placed back into a posterior splint and instructed to continue nonweightbearing on the right lower extremity. Patient was educated on splint maintenance and instructed to keep the splint clean, dry, and intact. However, should the splint become wet, dirty, damaged, or there are any concerns please call the office immediately for a splint change. She will follow up in 1 week for anticipation of staple removal and cast placement with x-rays, sooner if needed. Coding Level of Care Code Global (01919) Diagnoses Closed trimalleolar fracture S82.853A Laterality: right Status post open reduction with internal fixation (ORIF) of fracture of ankle Z98.890; Z87.81 CPT Codes Splint - CPT: 82827-Semzt Leg splint application ([id number])
[2025-02-01 15:26] VITALS: BP 124/79; PULSE 80; O2SAT 98
--- OUTSIDE RECORDS SUMMARY | 2025-02-01 18:42 | XMS_ITS | Patient Health Record ---
Author Organization [facility] Address [address] [place] [address] Care Team Providers Care Sales Performance Analyst Name Role Phone Justine PATEL, Adrianne Mcconnell Primary Care Provider Un available Black, Kelly Unavailable [phone] Reason For Referral No Information Social History Tobacco use other than smoking: Question Answer Notes Are you an other tobacco user? No Problems No Known Problems Plan Of Treatment Pending Test Test Name Order Date 62541-BQEBQCK NAIL, -12/07/2014 02507-NHOUWRD NAIL, 02-2103/08/2015 80502-OQSAMTA NAIL, 02-2107/05/2015 71857-Olys Destruction, 03-0207/05/2015 11996-Zvee Destruction, 03-0210/11/2015 56825-Spqq Destruction, 03-0201/01/2016 64399-Xtdv Destruction, 03-0203/08/2015 96059-Hlkt Destruction, 03-0202/28/2011 52467-Ugbn Destruction, 03-0204/03/2011 03665-Zkgl Destruction, 03-0203/31/2014 13124-Xrxi Destruction, 03-0206/20/2014 94134-Unnh Destruction, 03-0209/07/2014 39007-Rwzv Destruction, 03-0212/07/2014 99645-Tnwf Destruction, 03-0209/23/2011 32428-Rlhl Destruction, 03-0210/14/2011 81196-Znwr Destruction, 03-0211/11/2011 38869-Iwxv Destruction, 03-0212/16/2011 99145-Mwpt Destruction, 03-0205/06/2012 43464-Fegb Destruction, 03-0206/08/2012 61021-Rqgq Destruction, 03-0209/02/2012 61298-Epud Destruction, 03-0210/07/2012 86016-Vayl Destruction, 03-0211/16/2012 88231-Uikm Destruction, 03-0204/15/2013 27696-Ihsr Destruction, 03-0205/17/2013 36567-Fpxd Destruction, 03-0206/21/2013 77915- Debride <25 sq cm 05/15/2011 47049 I&D ABSCESS- SIMPLE,SINGLE 014 27783- Biopsy of skin lesion 05/01/2011 Insurance Providers Payer Name Payer Address Payer Phone Subscriber Number Group Number Insured Name Patient Relationship to Insured Coverage Start Date Coverage End Date [facility] [address] [place] [address] [id number] Devika oRper Self - patient is the insured Medical (General) History Medical History History ICD Code gall bladder removed chicken pox warts anxiety Surgical History Surgery Date(Month/Year) gall bladder breast surgery Hospitalization History Reason Date(Month/Year) [facility] [place] - Colonoscopy 12/26/2015
== END 2025-02-01 16:08 | disposition home or self-care (01) ==
LOC: HO.HOS 14:26
PROVIDERS: PCP Internal Medicine; Visit Provider Physician Assistant
DX: S82.851A Displaced trimalleolar fracture of right lower leg, initial encounter for closed fracture (principal); Z98.890 Other specified postprocedural states; Z87.81 Personal history of (healed) traumatic fracture
CPT/HCPCS: 29515; 99024

== ENCOUNTER → 2025-02-01 14:25 | Outpatient (BNVA) | payer BC, SELFPAY | PROVIDERS: PCP Internal Medicine; Visit Provider Physician Assistant | DX: Z47.89 Encounter for other orthopedic aftercare (principal); S82.853D Displaced trimalleolar fracture of unspecified lower leg, subsequent encounter for closed fracture with routine healing; Z98.890 Other specified postprocedural states; Z87.81 Personal history of (healed) traumatic fracture; X58.XXXD Exposure to other specified factors, subsequent encounter | CPT/HCPCS: 29515 ==

== ENCOUNTER 2025-02-08 08:26 | Outpatient (REF) | payer BC, SELFPAY ==
--- NOTE | ~2025-02-08 | XR_ITS ---
EXAMINATION: XR ANKLE, RIGHT CLINICAL INFORMATION: M25.579 - Pain in unspecified ankle and joints of unspecified foot , follow-up post op COMPARISON: 01/25/2025 TECHNIQUE: AP, lateral, and mortise views of the right ankle. FINDINGS: Since prior examination, splint has been removed and skin graeme in place laterally greater than medially. There is a new dynamic plate across the distal fibular fracture which is not anatomically aligned aside from a small karon fragment in the interosseous space. There is also an interfragmentary screw across the fracture. 2 cannulated cancellous screws traverse the medial malleolar fracture. Syndesmosis repair has been performed. There is abutment and medially and laterally with a tract across the distal tibia and fibular metaphyses. The ankle mortise is congruent. There is a moderate plantar calcaneal spur XR/XR ankle RT min 3V IMPRESSION: Postsurgical changes, otherwise unremarkable. Electronically signed by: Dar Esquivel MD 02/08/2025 02:13 PM [facility]SMANY
--- OUTSIDE RECORDS SUMMARY | 2025-02-11 08:29 | XMS_ITS | Patient Health Record ---
Author Organization [facility] Address [address] [place] [address] Care Team Providers Care Guest Service Agent Name Role Phone Justine PATEL, Adrianne Mcconnell Primary Care Provider Un available Black, Kelly Unavailable [phone] Reason For Referral No Information Social History Tobacco use other than smoking: Question Answer Notes Are you an other tobacco user? No Problems No Known Problems Plan Of Treatment Pending Test Test Name Order Date 79347-OKRGYPK NAIL, -12/07/2014 [id number]-VKMVDJJ NAIL, 02-2103/08/2015 10700-FOSHIEV NAIL, 02-2107/05/2015 26112-Ppul Destruction, 03-0207/05/2015 91821-Jhys Destruction, 03-0210/11/2015 11768-Diit Destruction, 03-0201/01/2016 78726-Ojon Destruction, 03-0203/08/2015 77996-Jrvf Destruction, 03-0202/28/2011 50940-Ttir Destruction, 03-0204/03/2011 04332-Brxi Destruction, 03-0203/31/2014 35112-Plxy Destruction, 03-0206/20/2014 97997-Yxbf Destruction, 03-0209/07/2014 89017-Zbky Destruction, 03-0212/07/2014 05153-Lnwk Destruction, 03-0209/23/2011 65153-Krmj Destruction, 03-0210/14/2011 26449-Vziu Destruction, 03-0211/11/2011 40328-Tgba Destruction, 03-0212/16/2011 79132-Mntc Destruction, 03-0205/06/2012 10292-Gehw Destruction, 03-0206/08/2012 75965-Gzom Destruction, 03-0209/02/2012 34096-Vfns Destruction, 03-0210/07/2012 75932-Errk Destruction, 03-0211/16/2012 68495-Jsve Destruction, 03-0204/15/2013 06580-Qwpp Destruction, 03-0205/17/2013 99693-Ydza Destruction, 03-0206/21/2013 54338- Debride <25 sq cm 05/15/2011 89507 I&D ABSCESS- SIMPLE,SINGLE 014 31534- Biopsy of skin lesion 05/01/2011 Insurance Providers Payer Name Payer Address Payer Phone Subscriber Number Group Number Insured Name Patient Relationship to Insured Coverage Start Date Coverage End Date [facility] [address] [place] [address] [id number] Devika Roper Self - patient is the insured Medical (General) History Medical History History ICD Code gall bladder removed chicken pox warts anxiety Surgical History Surgery Date(Month/Year) gall bladder breast surgery Hospitalization History Reason Date(Month/Year) [facility] [place] - Colonoscopy 12/26/2015
== END 2025-02-08 08:27 | disposition home or self-care (01) ==
LOC: HO.HOSX 08:26
PROVIDERS: Visit Provider Physician Assistant
DX: Z98.890 Other specified postprocedural states (principal); Z87.81 Personal history of (healed) traumatic fracture
CPT/HCPCS: 29405; 73610

== ENCOUNTER 2025-02-08 13:49 | Outpatient (AMB) | payer BC, SELFPAY ==
--- NOTE | 2025-02-08 14:05 | A.OFFVIS_ITS ---
Intake Visit Reasons: PO RT ankle ORIF 01/26/25 NE w/xray Intake Note: Devika is a 64 year old female who presents today for a post operative appointment status post right ankle ORIF done on 01/26/[address] Lopes. At her last visit she got a skin check and placed back into the posterior splint. Patient reports she is feeling a bit sore on the top of the foot when she had the splint. Allergies No Known Allergies (No Known Allergies*) Allergy (Verified 02/08/25 14:13) HPI HPI PO RT ankle ORIF 01/26/25 NE w/xray: Details: The patient is a 64-year-old female who presents to the office today status post right ankle ORIF performed on 01/26/[address] Lopes. Overall the patient is doing very well. She has been in a short leg posterior splint since surgery which was removed in the office today for x-rays to be obtained. [facility] Medical History History of hemorrhoids History of anxiety disorder History of adenomatous polyp of colon Obesity (BMI 30.0-34.9) Not ready to quit smoking Mixed dyslipidemia Essential hypertension History of lipoma Surgical History History of colonoscopy with polypectomy Hx of dilation and curettage Hx of breast biopsy Hx laparoscopic cholecystectomy Family History Father History of hypertension Hx of hyperlipidemia History of cardiac arrhythmia Alzheimer disease Mother Diabetes Social History Household Members: Spouse and Family Housing: House Are you a primary animal care provider to a significant other at home: No Do you presently have visiting nurse or other home services: No Alcohol intake: current Alcohol intake frequency: a few times a week Patient Tobacco Use Status: Current everyday Tobacco user Tobacco use type: Cigarette Cigarettes Per Day: 5 Years Smoked: 20 e-Cigarette/Vaping Use: Never Used Second Hand Smoke Exposure: No Advance Directives Date on File: 01/25/25 service: No Current occupational status: employed Cognitive needs: No Hearing needs: No Vision needs: Yes Female Reproductive History Menstrual Age of Menarche: 13 Review of Systems Const All systems reviewed & are unremarkable except as noted in HPI and below Physical Exam Const General: cooperative, healthy appearing and no acute distress Resp Effort & Inspection: normal respiratory effort and able to speak in complete sentences Extrem Other: Right ankle incision sites are clean dry and intact. Fulshear intact. No surrounding erythema or drainage. No signs of infection or wound breakdown. Pedal pulse intact. Sensation is intact. Psych Appearance: grossly normal Mental Status: mental status grossly normal Attitude: cooperative Office Procedures Casting/Splints 15249-Vagbj Leg Cast Application Procedure code (CPT) selection complete Assessment & Plan Assessment & Plan (1) Status post open reduction with internal fixation (ORIF) of fracture of ankle: Code(s): Z98.890 - Other specified postprocedural states; Z87.81 - Personal history of (healed) traumatic fracture Category: Surgical Plan The patient is a 64-year-old female who presents to the office today status post right ankle ORIF performed on 01/26/[address] Lopes. Overall the patient is doing very well. She has been in a short leg posterior splint since surgery which was removed in the office today for x-rays to be obtained. While in the office today graeme were removed and Steri-Strips were applied. Patient was placed into a short-leg cast. Patient was educated on cast maintenance and instructed to keep the cast clean, dry, and intact. However, should the cast become wet, dirty, damaged, or there are any concerns please call the office immediately for a cast change. She will continue to be nonweightbearing on the right lower extremity. She will follow up in 4 weeks with repeat x-rays, sooner if needed. X-rays of the right ankle which were obtained while in the office today and were reviewed by me, Suzi Rice PA-C, revealed intact orthopedic hardware with routine healing. Orders: Orders XR ankle RT min 3V Today M25.579 - Pain in unspecified ankle and joints of unspecified foot Coding Level of Care Code Global (76297) Diagnoses Status post open reduction with internal fixation (ORIF) of fracture of ankle Z98.890; Z87.81 CPT Codes Casting - CPT: 00445-Ackmn Leg Cast Application ([id number])
--- OUTSIDE RECORDS SUMMARY | 2025-02-08 15:03 | XMS_ITS | Patient Health Record ---
Author Organization [facility] Address [address] [place] [address] Care Team Providers Care Husker Operator Name Role Phone Justine PATEL, Adrianne Mcconnell Primary Care Provider Un available Black, Kelly Unavailable [phone] Reason For Referral No Information Social History Tobacco use other than smoking: Question Answer Notes Are you an other tobacco user? No Problems No Known Problems Plan Of Treatment Pending Test Test Name Order Date 41554-MLRCYQH NAIL, -12/07/2014 98351-MJROARV NAIL, 02-2103/08/2015 31697-KYUEFVM NAIL, 02-2107/05/2015 85448-Zkxc Destruction, 03-0207/05/2015 19905-Bqur Destruction, 03-0210/11/2015 82230-Vnae Destruction, 03-0201/01/2016 95929-Kcoq Destruction, 03-0203/08/2015 58152-Gphr Destruction, 03-0202/28/2011 36078-Ohyw Destruction, 03-0204/03/2011 67295-Ynkq Destruction, 03-0203/31/2014 15573-Rroo Destruction, 03-0206/20/2014 47667-Rfha Destruction, 03-0209/07/2014 33122-Jqoy Destruction, 03-0212/07/2014 33025-Eozz Destruction, 03-0209/23/2011 39109-Pxjr Destruction, 03-0210/14/2011 78955-Bflk Destruction, 03-0211/11/2011 13185-Ynjd Destruction, 03-0212/16/2011 02322-Zpbv Destruction, 03-0205/06/2012 70035-Tlur Destruction, 03-0206/08/2012 61265-Rrkz Destruction, 03-0209/02/2012 09469-Sqbd Destruction, 03-0210/07/2012 08761-Ogur Destruction, 03-0211/16/2012 74166-Xbnw Destruction, 03-0204/15/2013 16411-Qudv Destruction, 03-0205/17/2013 31688-Jsca Destruction, 03-0206/21/2013 73439- Debride <25 sq cm 05/15/2011 02478 I&D ABSCESS- SIMPLE,SINGLE 014 51956- Biopsy of skin lesion 05/01/2011 Insurance Providers Payer Name Payer Address Payer Phone Subscriber Number Group Number Insured Name Patient Relationship to Insured Coverage Start Date Coverage End Date [facility] [address] [place] [address] [id number] Devika Roper Self - patient is the insured Medical (General) History Medical History History ICD Code gall bladder removed chicken pox warts anxiety Surgical History Surgery Date(Month/Year) gall bladder breast surgery Hospitalization History Reason Date(Month/Year) [facility] [place] - Colonoscopy 12/26/2015
== END 2025-02-08 15:26 | disposition home or self-care (01) ==
LOC: HO.HOS 13:50
PROVIDERS: PCP Internal Medicine; Visit Provider Physician Assistant
DX: Z87.81 Personal history of (healed) traumatic fracture (principal); Z98.890 Other specified postprocedural states
CPT/HCPCS: 29405; 99024

== ENCOUNTER → 2025-02-08 13:53 | Outpatient (BNV) | payer BC, SELFPAY | PROVIDERS: Visit Provider Radiology Diagnostic Radiology | DX: M25.561 Pain in right knee (principal) | CPT/HCPCS: 73610 ==